=== PATIENT | female | born 1965 | race Caucasian/White ===

== ENCOUNTER 2020-02-08 04:08 | Emergency (ER) | payer MEDICAID, OTHER ==
[~2020-02-08] VITALS: Ht 165 cm; Wt 73.0 kg
[~2020-02-08 04:08] MED LIST: ALPR1T; ALPR1TAB21 PO; ALPR1TAB72; AMBIEN CR; BACL10TA; BPR150TCR; BSC10SU PR; BSP10T; BSP5T; CHL25T; CHOL10002; CHOL200025 PO; CYAN100053 IJ; CYANOCOBALAMIN; CYCL10TA9 PO; CYMBALTA; CYMBALTA 60 MG; DCS100C PO; DULO30CA; ELMIRON; EST.625T; FLDR.1T; FNT25TD TD; FNT50TD TD; FRSM40T; HYDR-229; HYOS0.1283 SL; ISOS30TA3 PO; KCL10CCR; LRZ1T; LVT.15T; LYRICA 75MG; MECL25TA56; MELATONIN 300MCG; MESA1.2T2 PO; METO50TA7; MNTL10T; MORP15TA PO; MULT-930 PO; NITR-65 PO; OLAN5TAB25 PO; OLN10T; OLN5T; OMEP40CA36; ONDA4TAB2 PO; OXC5T; OXC5T PO; OXYC10TA8; OXYC10TA8 PO; OXYC1TAB87; OXYC1TAB87 PO; PANT40TA2 PO; PEG250PW; PNT40TEC; POLY17PO23 GT; PREMPRO; PRM25T; PROM25SU10; PROM25SU43 RC; QTP25T; RAME8T; RANI150T11 PO; SUCR1ORA5 PO; TMSL.4C; TR5C15 TOP; TRAZ300T3 PO; TRZ100T; VALA500T4; XOPENEX; ZOLP12.5; ZOLP12.546 PO; [UNRECOGNIZED DRUG - CODE]; [UNRECOGNIZED DRUG - CODE] SQ; [UNRECOGNIZED DRUG - OTHER]; [UNRECOGNIZED DRUG - OTHER]
--- OUTSIDE RECORDS SUMMARY | 2020-02-08 04:17 | XMS REPORT | Encounter Summary ---
Author Author [facility] Organization [facility] Address Unknown Phone Unavailable Care Team Providers Care Gasoline Tester Name Role Phone PCP Unavailable Reason for Visit * Reason Comments Hip Pain Left, total replacement , revision 2010 Encounter Details Care Team Description Date Type Department Get Green MD [address] [facility] [address] [place] [address] Pain of left hip joint (Primary Dx) 07/15/2016 Initial consult [facility] [address] [facility] [address] [place], [place] [id number] Social History Date Tobacco Use Types Packs/Day Years Used Former Smoker Smokeless Tobacco: Never Used Drinks/Week oz/Week Comments Alcohol Use No Sex Assigned at Date Recorded Not on file Industry Job Start Date Occupation Not on file Not on file Not on file Travel End Travel History Travel Start No recent travel history available. documented as of this encounter Last Filed Vital Signs Reading Time Taken Comments Vital Sign 120/86 07/15/2016 1:19 PM CDT Blood Pressure 79 07/15/2016 1:19 PM CDT Pulse - - Temperature - - Respiratory Rate - - Oxygen Saturation - - Inhaled Oxygen Concentration 72.6 kg (160 lb) 07/15/2016 1:19 PM CDT Weight 165.1 cm (5' 5") 07/15/2016 1:19 PM CDT Height 26.63 07/15/2016 1:19 PM CDT Body Mass Index documented in this encounter Progress Notes * Get Green MD - 07/15/2016 1:20 PM CDT NAME: Barbara Morgan : 1965 VISIT DATE: 07/15/2016 Patient ID: Barbara Morgan is a 51 y.o. female. 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 She has c/o left hip pain. No recent trauma. Review of Systems Review of Systems - Negative except hpi History Past Medical History Diagnosis Date Osteoporosis Past Surgical History Procedure Laterality Date Other surgical history Esophagogastric Fundoplasty Az Fundoplication Other surgical history Hip Surgery Total hip replacement Left Revision total hip Left x2 2010 Family History Problem Relation Age of Onset ALS Father Family history of amyotrophic lateral sclerosis; Melanoma Father Family history of melanoma; Diabetes Father Family history of diabetes mellitus; Hypertension Other Family History; Hypertension; Diabetes Other Family History; Diabetes Mellitus; Social History Social History Marital status: Spouse name: N/A Number of children: N/A Years of education: N/A Occupational History Not on file. Social History Main Topics Smoking status: Former Smoker Smokeless tobacco: Never Used Alcohol use No Drug use: No Sexual activity: Not on file Other Topics Concern Not on file Social History Narrative Being Sedentary; Previous History Of Smoking; Uses Safety Equipment - Seatbelts; Alcohol Use; Description: None Current Meds Outpatient Prescriptions Marked as Taking for the 07/15/16 encounter (Initial co nsult) with Get Green MD Medication Sig Dispense Refill alendronate (FOSAMAX) 10 MG tablet TAKE 1 T BY MOUTH ONCE A DAY FOR 30 DAYS 1 ALPRAZolam (XANAX) 1 MG tablet TK 1 T PO Q 6 H PRN 0 LIALDA 1.2 gram EC tablet 5 OLANZapine zydis (ZYPREXA) 5 MG disintegrating tablet DISSOVLE 1 T UNDER THE TONGUE QD 11 oxyCODONE-acetaminophen (PERCOCET) 10-325 mg per tablet TK 1 T PO Q 6 H PRN 0 traZODone (DESYREL) 150 MG tablet TAKE 1 TABLET BY MOUTH NIGHTLY AT BEDTIME 0 zolpidem (AMBIEN) 10 mg tablet TK 1 T PO QD HS PRN 2 Allergies Metoclopramide hcl and Nsaids (non-steroidal anti-inflammatory drug) Radiology Interpretation No results found. Vitals Visit Vitals BP 120/86 Pulse 79 Ht 1.651 m (5' 5") Wt 72.6 kg (160 lb) BMI 26.63 kg/m2 Ortho Exam 51F, NAD, AAOx3 L hip: increased leg length. Healed incisions from prior surgeries. Discomfort with hip motion. Motor and sensory function grossly intact. Procedure Assessment: Encounter Diagnosis Name Primary? Pain of left hip joint Yes Plan: Orders Placed This Encounter XR Hip 2 views with Pelvis left Discussion/Summary Recommend pt follow up with her previous surgeon or another adult reconstruction specialist. Request for pain medication denied. F/u prn SEAT SANDER documented in this encounter Plan of Treatment Not on filedocumented as of this encounter Procedures Comments Procedure Name Priority Date/Time Associated Diag nosis XR HIP 2 VIEWS WITH Routine 07/15/2016 Pain of le ft hip joint PELVIS LEFT 1:36 PM CDT documented in this encounter Results * XR Hip 2 views with Pelvis left (07/15/2016 1:36 PM CDT) Specimen Narrative Performed At [facility] Reason for exam: left hip pain Findings: AP pelvis and 2 view left hip demonstrate left hip arthroplasty with revision components. No acute fi ndings Impression: s/p left hip revision arthr oplasty Performing Organization Address City/State/Zipcode Ph one Number [facility] documented in this encounter Visit Diagnoses Diagnosis Pain of left hip joint documented in this encounter
--- OUTSIDE RECORDS SUMMARY | 2020-02-08 04:17 | XMS REPORT | Clinical Summary ---
Author Author [facility] Organization [facility] Address Unknown Phone Unavailable Care Team Providers Care Save All Operator Name Role Phone PCP Unavailable Allergies Comments Active Allergy Reactions Severity Noted Date Adverse Reaction Metoclopramide Hcl Dyskinesia 07/15/2016 Pancreatic Problems Nsaids (Non-Steroidal Other (See 07/15/2016 Anti-Inflammatory Drug) Comments) Medications End Date Status Medication Sig Dispensed Refills Start Date Active alendronate (FOSAMAX) 10 TAKE 1 T BY 1 06/14 MG tablet MOUTH ONCE A 6 DAY FOR 30 DAYS Active ALPRAZolam (XANAX) 1 MG TK 1 T PO Q 6 0 tablet H PRN 6 Active LIALDA 1.2 gram EC tablet 5 6 Active OLANZapine zydis DISSOVLE 1 T 11 (ZYPREXA) 5 MG UNDER THE 6 disintegrating tablet TONGUE QD Active oxyCODONE-acetaminophen TK 1 T PO Q 6 0 (PERCOCET) 10-325 mg per H PRN 6 tablet Active traZODone (DESYREL) 150 TAKE 1 TABLET 0 MG tablet BY MOUTH 6 NIGHTLY AT BEDTIME Active zolpidem (AMBIEN) 10 mg TK 1 T PO QD 2 tablet HS PRN 6 Active Problems Problem Noted Date Pain of left hip joint 09/14/2016 Dysphagia 03/02/2013 Overview: ICD-10 conversion Arthropathy 03/02/2013 Overview: ICD-10 conversion Deficiency of other specified B group vitamins (CODE) 03/02/2013 Overview: IMO Update Family History Medical History Relation Name Comments ALS Father Family history of a myotrophic lateral sclerosis; Diabetes Father Family history of d iabetes mellitus; Melanoma Father Family history of m elanoma; Hypertension Other Family History; Hyp ertension; Diabetes Other Family History; Ellen betes Mellitus; Relation Name Status Comments Father Other Other Social History Date Tobacco Use Types Packs/Day Years Used Former Smoker Smokeless Tobacco: Never Used Drinks/Week oz/Week Comments Alcohol Use No Sex Assigned at Date Recorded Not on file Industry Job Start Date Occupation Not on file Not on file Not on file Travel End Travel History Travel Start No recent travel history available. Last Filed Vital Signs Reading Time Taken Comments Vital Sign 120/86 07/15/2016 1:19 PM CDT Blood Pressure 79 07/15/2016 1:19 PM CDT Pulse 36.7 C (98.1 F) 07/20/2013 10:40 AM COPYRIGHT CLERK Temperature - - Respiratory Rate - - Oxygen Saturation - - Inhaled Oxygen Concentration 72.6 kg (160 lb) 07/15/2016 1:19 PM CDT Weight 165.1 cm (5' 5") 07/15/2016 1:19 PM CDT Height 26.63 07/15/2016 1:19 PM CDT Body Mass Index Plan of Treatment Health Maintenance Due Date Last Done Comments Td # 1965 Zoster Vaccine# (1 of 2) 2013 Influenza Vaccine (Season 07/16/2020 Ended) Results Not on filefrom Last 3 Months Insurance Type Payer Benefit Subscriber ID Effective Phone Address Plan / Dates Group [place] 2016 [employer] -Present [id number] [place]) [place] [id number] Barbara Morgan Personal/F Self 1965 [id number] [place] [id number] Advance Directives For more information, please contact: [phone] Patient Oxygraph Operator Explanation Type Date Recorded Advance Directives and Living Will Power of Comb Winder
--- OUTSIDE RECORDS SUMMARY | 2020-02-08 04:17 | XMS REPORT | Encounter Summary ---
Author Author [facility] Organization [facility] Address Unknown Phone Unavailable Care Team Providers Care Promotions Intern Name Role Phone PCP Unavailable Encounter Details Care Team Description Date Type Department Jim Ruiz MD [address] [place] [address] [phone] 03/02/2013 Hist-Appointmen SLS SURG [facility] CL t Social History Date Tobacco Use Types Packs/Day Years Used Never Assessed Sex Assigned at Date Recorded Not on file Industry Job Start Date Occupation Not on file Not on file Not on file Travel End Travel History Travel Start No recent travel history available. documented as of this encounter Last Filed Vital Signs Reading Time Taken Comments Vital Sign 139/83 03/02/2013 12:21 PM CDT Blood Pressure 93 03/02/2013 12:21 PM CDT Pulse - - Temperature - - Respiratory Rate - - Oxygen Saturation - - Inhaled Oxygen Concentration 61.7 kg (136 lb) 03/02/2013 12:21 PM CDT Weight - - Height 22.63 12/13/2009 9:24 AM CDT Body Mass Index documented in this encounter Progress Notes * Jim Ruiz MD - 03/02/2013 11:45 AM CDT Reason For Visit Her reason for visit is "trouble swallowing". History of Present Illness 47-year-old woman with known to me from 2008 in which she complained of dysphagi a and nausea after fundoplication performed at an outside facility. On endoscopy at that time she was found to have narrowing at the GE junction and was taken f or revision of her fundoplication in June of that same year. She did well for a period of time but eventually had similar complaints with her revisional surg meche and as result she was taken back to the operating room in January of 2010 for co mplete takedown of her fundoplication. All of these surgeries were performed lap aroscopically. Over the past couple of months she states that she feels as if th ings have been getting stuck when she swallows and also complains of some pain w hen swallowing certain foods. She states that she has dysphagia and odynophagia with everything except for very thin liquids. She complains of occasional regurg itation but no heartburn. She states that she has lost approximately 30 pounds. Surgical History 1. History of Esophagogastric Fundoplasty Az Fundoplication 2. History of Knee Surgery Past Medical History 1. History of Dysphagia 787.20 Current Meds 1. Florinef 0.1 MG TABS; Therapy: (Recorded:13Dec2009) to 2. Phenergan SUPP; Therapy: (Recorded:13Dec2009) to 3. PredniSONE 1 MG Oral Tablet; Take 4 tablets daily. If you develop fever or Pn eumonia take an extra 4 tablets on 1 day only; Therapy: 17Nov2009 to (Evaluate:27Dec2009); Last Rx:17Nov2009 4. Premarin 0.625 MG Oral Tablet; Therapy: (Recorded:13Dec2009) to 5. Thorazine 100 MG TABS; Take one tablet four times a day for hicups; Therapy: (Recorded:13Dec2009) to 6. TraZODone HCl 100 MG Oral Tablet; TAKE 2 TABLETS DAILY; Therapy: (Recorded:) to 7. Vitamin D 2000 UNIT Oral Tablet; Therapy: (Recorded:13Dec2009) to 8. Xanax TABS; Therapy: (Recorded:13Dec2009) to 9. Zofran 4 MG Oral Tablet; Therapy: (Recorded:13Dec2009) to Allergies 1. Codeine Derivatives 2. Reglan TABS 3. NSAIDs Family History 1. Family history of Diabetes Mellitus V18.0 2. Family history of Hypertension V17.49 3. Family history of Prostate Cancer V16.42 Social History Alcohol Use Being Sedentary V69.0 Former Smoker Uses Safety Equipment - Seatbelts Review of Systems Eye, neck, cardiovascular, skin and psychiatric review of systems are normal exc ept as per HPI and unless noted below. Constitutional: Constitutional: chills, sudden exhaustion and recent weight loss. ENT: Throat symptoms include pain on swallowing and hoarseness. Teeth symptoms i nclude teeth are sensitive to heat/cold. Mouth symptoms include bad breath and d ry mouth. Respiratory: Respiratory Symptoms: shortness of breath during exertion. Gastrointestinal: anorexia and nausea. abdominal pain. Genitourinary: Smaller urine stream. Musculoskeletal: shoulder problems, upper back pain and arthralgias. Neurological: lightheadedness. Endocrine: Intolerance to cold. Hematologic/Lymphatic: tendency for easy bruising. Vitals Signs [Data Includes: Last 1 Day] 02Mar2013 12:21PM BMI Calculated: 22.66 BSA Calculated: 1.68 Weight: 136 lb Systolic: 139 Diastolic: 83 Heart Rate: 93 Physical Exam General Surgery Physical Exam General: Alert and oriented and in no apparent distress HEENT: Normocephalic, atraumatic Sclera: Anicteric Neck: Supple, no masses, no bruits, no lymphadenopathy Chest: Clear to auscultation bilaterally. No crackles or wheezes Cardiovascular: Regular rate and rhythm Abdomen: Soft, non-tender, non-distended, no masses, normoactive bowel sounds. N o hepatosplenomegaly Extremities: Non-tender, no edema Skin: Grossly normal Neurological: Cranial nerves are grossly intact. Mood and effect is normal Assessment 1. Pain On Swallowing 787.20 2. Difficulty Swallowing (Dysphagia) 787.20 Plan 47-year-old woman with odynophagia and dysphagia with mainly solids and soft bridgett ds. She has had no workup to date. Think he would be best to start with an esoph agram and upper GI and pending those results she may ultimately need an upper en doscopy. I would also be a little concerned about a supratentorial component to this given her past history and negative workup with dysphagia in the past. She was in agreement with this plan and will followup accordingly. Cc Dr. Rich Rose Referring Provider Dr. Rose. Signatures Electronically signed by : Lobo Ruiz MD; Mar 02 2013 4:20PM (Author) Disclaimer: Parts of this note were generated with voice recognition software, p lease excuse any typographical or grammatical errors. documented in this encounter Plan of Treatment Not on filedocumented as of this encounter Visit Diagnoses Not on filedocumented in this encounter
--- OUTSIDE RECORDS SUMMARY | 2020-02-08 04:17 | XMS REPORT | Encounter Summary ---
Author Author [facility] Organization [facility] Address Unknown Phone Unavailable Care Team Providers Care Refuge Manager Name Role Phone PCP Unavailable Encounter Details Care Team Description Date Type Department Jim Ruiz MD [address] [place] [address] [phone] 07/20/2013 Hist-Appointmen SLS SURG [facility]CLST HST CL t [...] Signs Reading Time Taken Comments Vital Sign 120/80 07/20/2013 10:40 AM SALES SUPPORT TECHNICIAN Blood Pressure 75 07/20/2013 10:40 AM SALES SUPPORT TECHNICIAN Pulse 36.7 C (98.1 F) 07/20/2013 10:40 AM SALES SUPPORT TECHNICIAN Temperature - - Respiratory Rate - - Oxygen Saturation - - Inhaled Oxygen Concentration 61.2 kg (135 lb) 07/20/2013 10:40 AM SALES SUPPORT TECHNICIAN Weight - - Height 22.47 12/13/2009 9:24 AM CDT Body Mass Index documented in this encounter Progress Notes * Jim Ruiz MD - 07/20/2013 10:30 AM SALES SUPPORT TECHNICIAN History of Present Illness 48-year-old woman well-known to me as she was recently seen in February of this yea r with complaints of dysphagia. In 2008 she had similar complaints with dysphag ia and nausea after fundoplication performed at an outside facility. At that ti ca she was found to have narrowing at her GE junction and was taken for revision of her fundoplication in June of that same year. She did well for a period of time but eventually had similar complaints with her revisional surgery as a r esult she was taken back to the operating room in January of 2010 for complete taked own of her fundoplication. These surgeries were all performed laparoscopically. In her late 2012 she had recurrence of her complaints of dysphagia and pain wi th swallowing certain types of food. She stated at that time that she had dysph agia as well as odynophagia with everything except for very thin liquids. She h ad occasional regurgitation but no heartburn and had lost approximately 30 pound s. At that time she weighed 136 pounds. It was recommended that she undergo up per endoscopy as well as esophagram and motility testing. Upper endoscopy was r ecently performed which was grossly unremarkable. She had a small amount of ret ained food and fluid in her stomach, there was no hiatal hernia and a small amou nt of reflux esophagitis. There was also mention of mild stenosis at her GE lisa ction which was dilated without incident. An esophagram and upper GI was also p erformed which demonstrated incomplete emptying of the esophagus compatible with motility dysfunction, and small hiatal hernia. She was referred for motility t esting but was unable to tolerate the procedure. In reviewing her medical recor ds it sounds as if she walked out on one of the physicians during the course of one of her office visits. Although not, and for Ms. Morgan I did have a similar experience with her while in the hospital. She now states that she is maintain ing her weight but has a constant vague abdominal discomfort which she describes as a tearing, ripping and sharp discomfort. She states that she is nauseated w ith her bowel movements. Standing up makes her pain worse and lying down makes her pain better. She states that she does not eat solid food in a more as this causes chest and epigastric discomfort. She feels as if food gets stuck althoug h she has no major problems with liquids. Surgical History 1. History of Esophagogastric Fundoplasty Az Fundoplication 2. History of Knee Surgery Active Problems 1. Arthritis (716.90) 2. Difficulty swallowing (787.20) 3. Pain on swallowing (787.20) 4. Vitamin B12 deficiency (266.2) Past Medical History 1. History of Dysphagia (787.20) Current Meds 1. Florinef 0.1 MG TABS (Fludrocortisone Acetate); Therapy: (Recorded:13Dec2009) to Recorded 2. Phenergan SUPP (Promethazine HCl); Therapy: (Recorded:13Dec2009) to Recorded 3. PredniSONE 1 MG Oral Tablet; Take 4 tablets daily. If you develop fever or Pn eumonia take an extra 4 tablets on 1 day only; Therapy: 17Nov2009 to (Evaluate:27Dec2009); Last Rx:17Nov2009 Ordered 4. Premarin 0.625 MG Oral Tablet; Therapy: (Recorded:13Dec2009) to Recorded 5. Thorazine 100 MG TABS; Take one tablet four times a day for hicups; Therapy: (Recorded:13Dec2009) to Recorded 6. TraZODone HCl - 100 MG Oral Tablet; TAKE 2 TABLETS DAILY; Therapy: (Recorded:13Dec2009) to Recorded 7. Vitamin D 2000 UNIT Oral Tablet; Therapy: (Recorded:13Dec2009) to Recorded 8. Xanax TABS (ALPRAZolam); Therapy: (Recorded:13Dec2009) to Recorded 9. Zofran 4 MG Oral Tablet (Ondansetron HCl); Therapy: (Recorded:13Dec2009) to Recorded Allergies 1. Codeine Derivatives 2. Reglan TABS 3. NSAIDs Family History 1. Family history of Diabetes Mellitus (V18.0) 2. Family history of amyotrophic lateral sclerosis (V17.2) 3. Family history of diabetes mellitus (V18.0) 4. Family history of melanoma (V16.8) 5. Family history of Hypertension (V17.49) 6. Family history of Prostate Cancer (V16.42) Social History Alcohol Use Being Sedentary (V69.0) Former Smoker Uses Safety Equipment - Seatbelts Vitals Signs [Data Includes: Last 24 Hours] Recorded by : Edna Sands at 20Jul2013 10:40AM Weight: 135 lb BMI Calculated: 22.47 BSA Calculated: 1.67 Systolic: 120 Diastolic: 80 Temperature: 98.1 F Heart Rate: 75 Physical Exam General Surgery Physical Exam General: [...] Cranial nerves are grossly intact. Mood and affect is normal Assessment 1. Family history of diabetes mellitus (V18.0) : Father 2. Family history of melanoma (V16.8) : Father 3. Family history of amyotrophic lateral sclerosis (V17.2) : Father 4. Difficulty swallowing (787.20) Plan 48-year-old with recurrent dysphagia. We had a long discussion that she needs motility testing and that nothing can be done for her unless she completes this. I also have some concern that some of this may be supratentorial, but I think the motility testing should help and dilatation. Certainly she could have a sma ll component of achalasia and we discussed this in the office. She stated that she will try to undergo the motility testing hearing [place]. Cc Dr. Dilip Guzman Signatures Electronically signed by : Lobo Ruiz MD; Jul 20 2013 5:52PM SALES SUPPORT TECHNICIAN (Author) Disclaimer: Parts of this note were generated with voice recognition software, p jonas excuse any typographical or grammatical errors. S SUPPORT TECHNICIAN documented in this encounter Plan of Treatment Not on filedocumented as of this encounter Visit Diagnoses Not on filedocumented in this encounter
--- OUTSIDE RECORDS SUMMARY | 2020-02-08 04:17 | XMS REPORT | Encounter Summary ---
Author Author [facility] Organization [facility] Address Unknown Phone Unavailable Care Team Providers Care Antique Furniture Restorer Name Role Phone PCP Unavailable Encounter Details Care Team Description Date Type Department Get Green MD [address] [place] [address] 05/29/2016 Documentation [facility] [address] [facility] [place], [place] [id number] Social History Date Tobacco Use Types Packs/Day Years Used Former Smoker Sex Assigned at Date Recorded Not on file Industry Job Start Date Occupation Not on file Not on file Not on file Travel End Travel History Travel Start No recent travel history available. documented as of this encounter Plan of Treatment Not on filedocumented as of this encounter Visit Diagnoses Not on filedocumented in this encounter
--- OUTSIDE RECORDS SUMMARY | 2020-02-08 04:17 | XMS REPORT | Encounter Summary ---
Author Author [facility] Organization [facility] Address Unknown Phone Unavailable Care Team Providers Care Construction Plumber Name Role Phone PCP Unavailable Encounter Details Care Team Description Date Type Department Jim Ruiz MD [address] [place] [address] [phone] Esophageal reflux 03/02/[address] [facility] 03/05/2013 [address] [place] [address] Social History Date Tobacco Use Types Packs/Day Years Used Never Assessed Sex Assigned at Date Recorded Not on file Industry Job Start Date Occupation Not on file Not on file Not on file Travel End Travel History Travel Start No recent travel history available. documented as of this encounter Medications at Time of Discharge Start Date End Date Medication Sig Dispensed Refills 04/19/2015 chlorproMAZINE Take one 0 (THORAZINE) 100 MG tablet tablet four times a day for hicups 04/19/2015 cholecalciferol, vitamin Take by 0 D3, 2,000 unit Tab mouth. 04/19/2015 fludrocortisone Take by 0 (FLORINEF) 0.1 mg tablet mouth. 04/19/2015 PHENERGAN 50 mg Insert into 0 suppository the rectum. 11/17/2009 04/19/2015 predniSONE (DELTASONE) 1 Take 4 30 0 MG tablet tablets daily. If you develop fever or Pneumonia take an extra 4 tablets on 1 day only. 04/19/2015 PREMARIN 0.625 mg tablet Take by 0 mouth. 04/19/2015 traZODone (DESYREL) 100 TAKE 2 0 MG tablet TABLETS DAILY 04/19/2015 XANAX 2 mg tablet Take by 0 mouth. 04/19/2015 ZOFRAN, HYDROCHLORIDE, Take by 0 4 mg tablet mouth. documented as of this encounter Plan of Treatment Not on filedocumented as of this encounter Procedures Comments Procedure Name Priority Date/Time Associated Diag nosis FL UGI WO KUB Routine 03/02/2013 3:01 PM CDT documented in this encounter Results * FL UGI wo KUB (03/02/2013 3:01 PM CDT) Specimen Narrative Performed At [facility] Patient: BARBARA MORGAN Phone #: BoostUp Rec#: [id number] Sex: F : 1965 Latricia#: [id number] Location: [facility] Check-in#: [id number] Procedure Requested: [id number] DX UGI WO KU B Reason For Exam: DYSPHAGIA Exam Ordered: 03/02/2013 140 5 Exam Date/Time: 03/02/2013 1521 Check-in Date/Time: 03/02/2013 1405 Attendin Jim RUIZ Requestin Jim RUIZ Referrin NO, REFERRING DR Primary Care: [id number] NANCY STAHL DO DX UGI WO KUB INDICATION: DYSPHAGIA TECHNIQUE: After administration of effervescent cr ystals and oral barium a combined full column and air-contrast exam of th e upper gastrointestinal tract was performed with multiple spot and ov erhead images. FINDINGS: A normal swallowing reflex is seen. Nor mal distensibility of the esophagus seen. No stricture or focal mucosal abnormality of the esophagus is seen. No hiatal hernia is seen. There is intermittent mild retrograde transit of barium contrast w ithin the distal thoracic esophagus. No distal stricture or mass is identified. No definite tertiary contractions. Peristalsis appe ars normal. The contour, the mucosal pattern, and d istensibility of the stomach is normal. The duodenal bulb and sweep are normal. No active ulcers are seen. The visualized portion of the pro ximal small bowel is normal. IMPRESSION: Mild intraesophageal reflux. No gastroe sophageal reflux identified during the study. Upper gastrointestina l series is otherwise normal. DISCLAIMER: Parts of this report were g enerated with voice recognition software, there may be typographical an d/or grammatical inaccuracies in professor criminal justice. Signed (Authenticated, Released) Date-T abdias: 03/02/2013 1551 Ambulette Driver- CHINEDU Yo, Staff Radiologist Dictated By- Kashif OWLF D.O. Radiologist Staff Physician- CHINEDU Dickey, Staff Radiologist Authenticated By- CHINEDU Yo, Staff Radiologist Procedure Note Interface, Rad Conversion - 11/12/2013 5:17 PM MATERIALS COORDINATOR REPORT Patient: BARBARA MORGAN Phone #: BoostUp Rec#: [id number] Sex: F : 1965 Latricia#: [id number] Location: [facility] Check-in#: [id number] Procedure Requested: [id number] DX UGI WO KUB Reason For Exam: DYSPHAGIA Exam Ordered: 03/02/2013 1405 Exam Date/Time: 03/02/2013 1521 Check-in Date/Time: 03/02/2013 1405 Attendin Jim RUIZ Requestin Jim RUIZ Referrin NO, REFERRING DR Primary Care: [id number] NANCY STAHL DO DX UGI WO KUB INDICATION: DYSPHAGIA TECHNIQUE: After administration of effervescent crystals and oral barium a combined full column and air-contrast exam of the upper gastrointestinal tract was performed with multiple spot and overhead images. FINDINGS: A normal swallowing reflex is seen. Normal distensibility of the esophagus seen. No stricture or focal mucosal abnormality of the esophagus is seen. No hiatal hernia is seen. There is intermittent mild retrograde transit of barium contrast within the distal thoracic esophagus. No distal stricture or mass is identified. No definite tertiary contractions. Peristalsis appears normal. The contour, the mucosal pattern, and distensibility of the stomach is normal. The duodenal bulb and sweep are normal. No active ulcers are seen. The visualized portion of the proximal small bowel is normal. IMPRESSION: Mild intraesophageal reflux. No gastroesophageal reflux identified during the study. Upper gastrointestinal series is otherwise normal. DISCLAIMER: Parts of this report were generated with voice recognition software, there may be typographical and/or grammatical inaccuracies in professor criminal justice. Signed (Authenticated, Released) Date-Time: 03/02/2013 9449 Ambulette Driver- CHINEDU BOYLE D.O., Staff Radiologist Dictated By- CHINEDU BOYLE D.O., Staff Radiologist Staff Physician- CHINEDU BOYLE D.O., Staff Radiologist Authenticated By- CHINEDU BOYLE D.O., Staff Radiologist Performing Organization Address City/State/[facility] Ph one Number INOCENCIO documented in this encounter Visit Diagnoses Diagnosis Esophageal reflux documented in this encounter
--- OUTSIDE RECORDS SUMMARY | 2020-02-08 04:17 | XMS REPORT | Encounter Summary ---
Author Author [facility] Organization [facility] Address Unknown Phone Unavailable Care Team Providers Care Packing And Final Assembly Supervisor Name Role Phone PCP Unavailable Encounter Details Care Team Description Date Type Department ProviderNeil MD [address] [place] [address] 03/04/2013 [facility] ion Encounter [address] [place], [place] [id number] Social History Date Tobacco Use Types Packs/Day Years Used Never Assessed Sex Assigned at Date Recorded Not on file Industry Job Start Date Occupation Not on file Not on file Not on file Travel End Travel History Travel Start No recent travel history available. documented as of this encounter Progress Notes * ProviderNeil MD - 03/04/2013 2:28 PM CDT Date: 04 Mar 2013 2:28 PM MILITARY PROFESSIONAL, Recorded By: Edna Sands Calling For: Edna Sands Caller: BARBARA MORGAN, Self (Home), Reason: Other patient called for UGI results. Dr. Ruiz reviewed results. Informed patient t hat results were ok and that she would now need to get evaluated by GI and get a n EGD. Verbalized understanding. STates has a GI doctor closer to her home she may want to try. Informed her to let us know when things get scheduled so we c an f/u on results. Verbaized understanding. Electronically signed by:Edna Sands R.N. Mar 04 2013 2:30PM MILITARY PROFESSIONAL documented in this encounter Plan of Treatment Not on filedocumented as of this encounter Visit Diagnoses Not on filedocumented in this encounter
--- OUTSIDE RECORDS SUMMARY | 2020-02-08 04:17 | XMS REPORT | Encounter Summary ---
Author Author [facility] Organization [facility] Address Unknown Phone Unavailable Care Team Providers Care Injection Molding Machine Setter Name Role Phone PCP Unavailable Encounter Details Care Team Description Date Type Department Jim Ruiz MD [address] [place], [place] [id number] 03/15/2013 [facility] [address] [place] [address] Social History Date Tobacco Use Types Packs/Day Years Used Never Assessed Sex Assigned at Date Recorded Not on file Industry Job Start Date Occupation Not on file Not on file Not on file Travel End Travel History Travel Start No recent travel history available. documented as of this encounter Miscellaneous Notes * Miscellaneous - Jim Ruiz MD - 03/15/2013 10:36 PM CDT Verified Results Collected/Examined: Mar 02, 2013 3:01PM DX UGI WO KUB Patient: BARBARA MORGAN Phone #: Med Rec#: [id number] Sex: F : 1965 Latricia#: [id number] Location: [facility] Check-in#: [id number] Procedure Requested: [id number] DX UGI WO KUB Reason For Exam: DYSPHAGIA Exam Ordered: 03/02/2013 1405 Exam Date/Time: 03/02/2013 1521 Check-in Date/Time: 03/02/2013 1405 Attendin Jim RUIZ Requestin Jim RUIZ Referrin NO, REFERRING DR Primary Care: [id number] NANCY STAHL DO DX UGI WO KUB [...] may be typographical and/or grammatical inaccuracies in ncr operator. Signed (Authenticated, Released) Date-Time: 03/02/2013 1551 College And Career Counselor- CHINEDU BOYLE D.O., Staff Radiologist Dictated By- CHINEDU BOYLE D.O., Staff Radiologist Staff Physician- CHINEDU BOYLE D.O., Staff Radiologist Authenticated By- CHINEDU BOYLE D.O., Staff Radiologist [id number]^JUAN MANUEL * Miscellaneous - Jim Ruiz MD - 03/15/2013 10:36 PM CDT Verified Results Collected/Examined: Mar 02, 2013 3:01PM DX UGI WO KUB Patient: BARBARA MORGAN Phone #: Doctor kinetic Rec#: [id number] Sex: F : 1965 Latricia#: [id number] Location: [facility] Check-in#: [id number] Procedure Requested: [id number] DX UGI WO KUB Reason For Exam: DYSPHAGIA Exam Ordered: 03/02/2013 1405 Exam Date/Time: 03/02/2013 1521 Check-in Date/Time: 03/02/2013 1405 Attendin Jim RUIZ Requestin Jim RUIZ Referrin NO, REFERRING DR Primary Care: [id number] STAHL NANCY Alvarez DO DX UGI WO KUB INDICATION: DYSPHAGIA [...] may be typographical and/or grammatical inaccuracies in ncr operator. Signed (Authenticated, Released) Date-Time: 03/02/2013 1551 College And Career Counselor- CHINEDU BOYLE D.O., Staff Radiologist Dictated By- CHINEDU BOYLE D.O., Staff Radiologist Staff Physician- CHINEDU BOYLE D.O., Staff Radiologist Authenticated By- CHINEDU BOYLE D.O., Staff Radiologist [id number] documented in this encounter Plan of Treatment Not on filedocumented as of this encounter Visit Diagnoses Not on filedocumented in this encounter
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
--- OUTSIDE RECORDS SUMMARY | 2020-02-08 04:17 | XMS REPORT | Encounter Summary ---
Author Author [facility] Organization [facility] Address Unknown Phone Unavailable Care Team Providers Care Process Stripper Name Role Phone PCP Unavailable Encounter Details Care Team Description [place] [address] [facility] [address] [place] [address] [phone] Dysphagia, unspecified 08/03/2013 [facility] Encounter [address] [place], [place] [id number] Social History Date Tobacco Use Types Packs/Day [...] tablet mouth. documented as of this encounter Miscellaneous Notes * Operative Note - Lino Martin MD - 11/11/2013 4:03 PM CROSSBAND LAYER REPORT Name: BARBARA MORGAN Date of : 1965 Attending Physician: LINO MARTIN ESOPHAGEAL FUNCTION TEST REPORT (ESOPHAGEAL MANOMETRY) REFERRING PHYSICIAN: Nara Ruiz MD PRIMARY CARE PHYSICIAN: Dilip Guzman MD INDICATIONS FOR PROCEDURE: Dysphagia, history of Az fundoplication with revision and subsequent takedown of the Az fundoplication revision, history of weight loss. MEDICATIONS: The patient was taking omeprazole, Zantac, Xanax, trazodone, Florinef, and Ambien at the time of the study. No medications administered during the procedure. DESCRIPTION OF PROCEDURE: Standard SandFortscalell system was utilized for the esophageal function test. A catheter was placed nasally and esophageal function parameters were obtained, as well as a wet swallows of liquid and viscous material. The lower esophageal sphincter was located between 41 and 45 cm from the nares. The lower esophageal sphincter pressure mean was 16.3 mmHg, which is in the normal range of between 10 and 45 mmHg. The lower esophageal sphincter pressure residual was 7.2 mmHg, which is normal at less than 8. Percent relaxation was 57%, which was diminished^ however, cooperation with the study was limited. The procedural nurse described multiple double swallows and throat clearing with limited cooperation during the study. A review of wet swallows showed that when single wet swallows were obtained, most measurements were peristaltic. An occasional simultaneous contraction was noted. With double swallows, frequent simultaneous contractions were noted. In essence, the study was limited due to artifact and limited cooperation. However, adequate peristalsis was seen to indicate that there is no evidence of achalasia. In addition, the lower esophageal sphincter resting pressure and appearance of relaxation did not fit with achalasia. Review of viscous swallows showed similar findings. The mean lower esophageal sphincter pressure on peristalsis was 54 mmHg, which is in the normal range. The patient tolerated the procedure reasonably well, except for her frequent throat clearing and poor cooperation, per the procedural nurse. Upper esophageal data was limited based on the nature of the study. IMPRESSION: Nonspecific esophageal motility disorder with occasional non-transmitted esophageal contractions (occasional aperistalsis). The normal lower esophageal sphincter pressure, the normal-range esophageal residual pressure, and the presence of mostly peristaltic waveforms in the absence of artifact suggest that achalasia is not a likely diagnosis. RECOMMENDATIONS: Clinical correlation is required in view of significant limitations of the study. Further evaluation and treatment of achalasia does not seem warranted at this time. Consider referral to a GI clinic if further symptoms persist in the future. Lino Martin MD Dictated By: cc: Lobo Ruiz MD SBAND LAYER documented in this encounter Plan of Treatment Not on filedocumented as of this encounter Visit Diagnoses Diagnosis Dysphagia, unspecified(787.20) Dysphagia, unspecified documented in this encounter
--- OUTSIDE RECORDS SUMMARY | 2020-02-08 04:17 | XMS REPORT | Encounter Summary ---
Author Author [facility] Organization [facility] Address Unknown Phone Unavailable Care Team Providers Care Applications Intern Name Role Phone PCP Unavailable Encounter Details Care Team Description Date Type Department Encounter for consultation 07/15/2016 Imaging [facility] Virtual Revenu e Appointment Location Social History Date Tobacco Use Types Packs/Day [...] Procedure Name Priority Date/Time Associated Diag nosis CT OUTSIDE IMAGES FOR Routine 07/15/2016 Encounte r for PACS LOWER EXTREMITY 1:12 PM CDT consultation documented in this encounter Results * CT Outside images for PACS Lower Extremity (07/15/2016 1:12 PM CDT) Specimen Performing Organization Address City/State/Zipcode Ph one Brian ROSECARLOS documented in this encounter Visit Diagnoses Diagnosis Encounter for consultation documented in this encounter
--- OUTSIDE RECORDS SUMMARY | 2020-02-08 04:17 | XMS REPORT | Encounter Summary ---
Author Author [facility] Organization [facility] Address Unknown Phone Unavailable Care Team Providers Care Medicine Technologist Name Role Phone PCP Unavailable Encounter Details Care Team Description Date Type Department ProviderNeil MD [address] [place] [address] 10/05/[address] [facility] Family Medicine ion Encounter [address] [place] [address] Social History Date Tobacco Use Types Packs/Day Years Used Never Assessed Sex Assigned at Date Recorded Not on file Industry Job Start Date Occupation Not on file Not on file Not on file Travel End Travel History Travel Start No recent travel history available. documented as of this encounter Progress Notes * ProviderNeil MD - 10/05/2013 11:58 AM PRODUCTION ROUSTABOUT PATIENT CALLED TO DISCUSS SOME DISCREPANCIES IN CHART. PER PATIENT, REQUEST REM ROBBIN FAMILY HISTORY OF PROSTATE CANCER AND OWN KNEE SURGERY. ADDED HIP REPLACEM ENT SURGERY SHE STATED THAT IS WHAT SHE HAD IN THE PAST. Electronically signed by:Jael Gore R.N. Oct 05 2013 12:02PM PRODUCTION ROUSTABOUT documented in this encounter Plan of Treatment Not on filedocumented as of this encounter Visit Diagnoses Not on filedocumented in this encounter
--- OUTSIDE RECORDS SUMMARY | 2020-02-08 04:17 | XMS REPORT | Encounter Summary ---
Author Author [facility] Organization [facility] Address Unknown Phone Unavailable Care Team Providers Care Wind Turbine Blade Repair Technician Name Role Phone PCP Unavailable Encounter Details Care Team Description Date Type Department ProviderNeil MD [address] [place] [address] 09/02/2013 Hist-Transcript [facility] Family Medicine ion Encounter [address] [place] [address] Social History Date Tobacco Use Types Packs/Day Years Used Never Assessed Sex Assigned at Date Recorded Not on file Industry Job Start Date Occupation Not on file Not on file Not on file Travel End Travel History Travel Start No recent travel history available. documented as of this encounter Progress Notes * ProviderNeil MD - 09/02/2013 10:43 AM UPHOLSTERY TRIMMER Date: 02 Sep 2013 10:43 AM UPHOLSTERY TRIMMER, Recorded By: Edna Hill Caller: TIFFANIEBARBARA, Self (Home), Patient called c/o pain and following up on tests. Dr. ruiz discussed her resul ts and is referring her to Dr. Stafford at for a 2nd opinion. Informed pt that w e have faxed over referral and Dr. Stafford's office will be contacting her. Ms. Lg ham also asked for pain meds and per Dr. Ruiz we referred her to her PCP for p ain management. Pt verbalized understanding and was going to follow up with her PCP as recommended. Electronically signed by:Edna Hill Sep 02 2013 10:47AM UPHOLSTERY TRIMMER Author documented in this encounter Plan of Treatment Not on filedocumented as of this encounter Visit Diagnoses Not on filedocumented in this encounter
--- OUTSIDE RECORDS SUMMARY | 2020-02-08 04:17 | XMS REPORT | Encounter Summary ---
Author Author [facility] Organization [facility] Address Unknown Phone Unavailable Care Team Providers Care Supervisor Finishing Department Name Role Phone PCP Unavailable Encounter Details Care Team Description Date Type Department Encounter for consultation 07/15/2016 Imaging [facility] Virtual Revenu e Appointment Location Social History [...] Procedure Name Priority Date/Time Associated Diag nosis NM OUTSIDE IMAGES FOR Routine 07/15/2016 Encounte r for PACS 1:13 PM CDT consultation documented in this encounter Results * NM Outside images for PACS (07/15/2016 1:13 PM CDT) Specimen Performing Organization Address City/State/Zipcode Ph one Number ROSECARLOS documented in this encounter Visit Diagnoses Diagnosis Encounter for consultation documented in this encounter
--- OUTSIDE RECORDS SUMMARY | 2020-02-08 04:18 | XMS REPORT | Encounter Summary ---
Author Author [facility] Organization [facility] Address Unknown Phone Unavailable Care Team Providers Care Supervisor Instrument Maintenance Name Role Phone PCP Unavailable Encounter Details Care Team Description Date Type Department Jim Ruiz MD [address] [place], [place] [id number] 12/13/2009 [facility] [address] [facility] [address] [place] [address] Social History Date Tobacco Use Types Packs/Day [...] Name Priority Date/Time Associated Diag nosis NM GASTRIC EMPTYING STUDY Routine 12/13/2009 2:30 PM CDT documented in this encounter Results * NM Gastric Emptying study (12/13/2009 2:30 PM CDT) Specimen Narrative Performed At [facility] Patient: BARBARA MORGAN Phone #: [facility] Rec#: [id number] Sex: F : 1965 Latricia#: [id number] Location: [facility] Check-in#: [id number] Procedure Requested: [id number] NM GASTRIC E MPTYING STUDY Reason For Exam: REFLUX Exam Ordered: 12/13/2009 143 0 Exam Date/Time: 12/13/2009 1600 Check-in Date/Time: 12/13/2009 1414 Attendin Jim RUIZ Requestin Jim RUIZ Referring: , Primary Care: , These images and this report have been reviewed and edited by the Staff Radiologist. NM GASTRIC EMPTYING STUDY Reason for exam: REFLUX Technique: The patient ingested cooked eggs mixed with 1 mCi of Tc-99 M tagged sulfur colloid. Multiple static images were then obtained over the next 90 minutes. A time/activity curve was f ormulated. Findings: Study demonstrates delayed emptying of the isotope and no evidence of gastroesophageal reflux. The half-time clearance was calculated to be 138 minutes. Impression: Delayed gastric emptying of solid meal. Signed (Authenticated, Released) Date-T abdias: 12/13/2009 1525 Chiropractic Care- CECY Wilder, Staff Radiologist Dictated By- CECY MONTES M.D., Staff Radiologist Staff Physician- CECY Hernandez, Staff Radiologist Authenticated By- CECY Wilder, Staff Radiologist Procedure Note Interface, Rad Conversion - 11/14/2013 12:49 AM PVC MONITOR REPORT Patient: BARBARA MORGAN Phone #: [facility] Rec#: [id number] Sex: F : 1965 Latricia#: [id number] Location: [facility] Check-in#: [id number] Procedure Requested: [id number] NM GASTRIC EMPTYING STUDY Reason For Exam: REFLUX Exam Ordered: 12/13/2009 1430 Exam Date/Time: 12/13/2009 1600 Check-in Date/Time: 12/13/2009 1414 AttendinJim VINCENT RequestinJim RASCON Referring: , Primary Care: , These images and this report have been reviewed and edited by the Staff Radiologist. NM GASTRIC EMPTYING STUDY Reason for exam: REFLUX Technique: The patient ingested cooked eggs mixed with 1 mCi of Tc-99 M tagged sulfur colloid. Multiple static images were then obtained over the next 90 minutes. A time/activity curve was fo rmulated. Findings: Study demonstrates delayed emptying of the isotope and no evidence of gastroesophageal reflux. The half-time clearance was calculated to be 138 minutes. Impression: Delayed gastric emptying of solid meal. Signed (Authenticated, Released) Date-Time: 12/13/2009 1525 Chiropractic Care- CECY MONTES M.D., Staff Radiologist Dictated By- CECY MONTES M.D., Staff Radiologist Staff Physician- CECY MONTES M.D., Staff Radiologist Authenticated By- CECY MONTES M.D., Staff Radiologist Performing Organization Address City/State/Zipcode Ph one Number INOCENCIO documented in this encounter Visit Diagnoses Not on filedocumented in this encounter
--- OUTSIDE RECORDS SUMMARY | 2020-02-08 04:18 | XMS REPORT | Encounter Summary ---
Author Author [facility] Organization [facility] Address Unknown Phone Unavailable Care Team Providers Care Band Builder Name Role Phone PCP Unavailable Encounter Details Care Team Description Date Type Department Jim Ruiz MD [address] [place], [place] [id number] Nausea alone 01/15/2010 [facility] - Encounter [address] 01/16/2010 [place] [address] Social History Date Tobacco Use Types Packs/Day [...] encounter Miscellaneous Notes * Operative Note - Lobo Ruiz MD - 11/13/2013 5:35 AM BLOCK SORTER REPORT Name: BARBARA MORGAN MRN/Unit #: [id number] Attending Physician: Jim RUIZ Date of : 1965 DATE OF PROCEDURE: 01/15/2010 PREOPERATIVE DIAGNOSIS: Nausea. POSTOPERATIVE DIAGNOSIS: Nausea. PROCEDURE: Laparoscopic takedown of Az fundoplication and intraoperative upper endoscopy. SURGEON: Lobo Ruiz MD NUCLEAR DESIGN ENGINEER: Jerson Webb MD ANESTHESIA: General endotracheal anesthesia. ESTIMATED BLOOD LOSS: Minimal. SPECIMEN: None. DESCRIPTION OF PROCEDURE: Patient was taken to the operating room, placed supine. General anesthesia was initiated. Aponte catheter was placed and she was prepped and draped in the usual sterile manner. Half percent Marcaine was infiltrated at all incisions. The abdominal cavity was entered by way of a left upper quadrant Veress needle. After normal saline drop test, the abdomen was insufflated with CO2. A camera was placed superior and to the left of the umbilicus and a camera was revealing the abdominal contents. The 5-mm ports were placed across the subcostal region. A liver retractor was placed through the right lateral port and used to elevate the left lobe of the liver. She had a significant amount of scarring underneath the liver to the anterior surface of the stomach. This took us some time to take down these adhesions. This was done sharply with scissors as well as using the harmonic scalpel. We were able to skeletonize the crura and skeletonize the esophagus within the esophageal hiatus. Retroesophageal window was established. The fundoplication was identified. This was above the GE junction and appeared to be intact. There was no evidence of slip or other irregularity. Using careful dissection, we were able to isolate the sutures, divide the sutures, and separate the fundoplication and taken down the fundoplication. The wrap was loosened posteriorly and freed from the posterior scarring and the fundus was brought back to its normal anatomic position. Hemostasis was insured. An upper endoscopy was performed to insure that there was no harm to the esophagus or to the stomach. There was no evidence of bubbling or evidence of a leak or injury. Satisfied hemostasis was insure, the trocars were removed and the skin incisions were closed with 4-0 Monocryl subcuticular stitches. Steri-Strips were applied. All sponge, needle, and instrument counts were reported correct. She tolerated the procedure well without complication. I was present and scrubbed throughout the procedure. Jim. Mendez Ruiz MD Dictated By: cc: MD Rich Kay DO K SORTER documented in this encounter Plan of Treatment Not on filedocumented as of this encounter Procedures Comments Procedure Name Priority Date/Time Associated Diag nosis PHOSPHORUS Routine 01/16/2010 5:15 AM CDT MAGNESIUM Routine 01/16/2010 5:15 AM CDT BASIC METABOLIC PANEL Routine 01/16/2010 5:15 AM CDT documented in this encounter Results * Magnesium (01/16/2010 5:15 AM CDT) Magnesium 1.4 1.4 - 2.0 MEQ/L SUNQUEST Specimen Blood Performing Organization Address City/State/[facility] Ph one Number [facility]RL [address] [place], [place] [address] SUNQUEST * Basic Metabolic Panel (01/16/2010 5:15 AM CDT) Sodium 139 134 - 144 MEQ/L SUNQUEST Potassium 3.7 3.5 - 5.1 MEQ/L SUNQUEST Chloride 105 101 - 111 MEQ/L SUNQUEST Carbon Dioxide 25 23 - 32 MEQ/L SUNQUEST Anion Gap 9 3 - 15 SUNQUEST Creatinine 0.7 0.4 - 1.1 MG/DL SUNQUEST Blood Urea 9 8 - 26 MG/DL SUNQUEST Nitrogen Glucose 81 65 - 100 MG/DL SUNQUEST Calcium 8.8 8.8 - 10.5 MG/DL SUNQUEST eGFR Female AA 108 SUNQUEST Comment: Chronic Kidney Disease less than 60 mL/min/1.73 sq.m Kidney failure less than 15 mL/min/1.73 sq.m eGFR Female 90 SUNQUEST Non-AA Comment: Chronic Kidney Disease less than 60 mL/min/1.73 sq.m Kidney failure less than 15 mL/min/1.73 sq.m Specimen Blood Performing Organization Address [facility] Ph one Number SLRL [address] [place] [phone] SUNQUEST * Phosphorus (01/16/2010 5:15 AM CDT) Phosphorus 2.3 (L) 2.5 - 4.5 MG/DL SUNQUEST Specimen Blood Performing Organization Address [facility] Ph one Number SLRL [address] [place] [phone] SUNQUEST documented in this encounter Visit Diagnoses Diagnosis Nausea alone documented in this encounter
--- OUTSIDE RECORDS SUMMARY | 2020-02-08 04:18 | XMS REPORT | Encounter Summary ---
Author Author [facility] Organization [facility] Address Unknown Phone Unavailable Care Team Providers Care Husker Operator Name Role Phone PCP Unavailable Encounter Details Care Team Description Date Type Department Jim Ruiz MD [address] [place] [address] [phone] [facility] Social History Date Tobacco Use Types Packs/Day [...] as of this encounter Miscellaneous Notes * Clinic Note - Lobo Ruiz MD - 11/13/2013 5:22 AM ENTRY MANAGER REPORT Name: BARBARA MORGAN MRN/Unit #: [id number] Chart #: Date of : 1965 DATE OF SERVICE: 02/08/2010 She feels remarkably improved since takedown of her fundoplication. She denies any dysphagia or ironically reflux symptomatology. She is not on any medications and has no heartburn or regurgitation type symptoms. She overall feels much improved. She is eating better and denies any nausea and states that she is actually gaining weight. Her incisions look well healed. She will follow up with me as needed. Lobo Ruiz MD Dictated by: cc: MD Rich Kay DO Y MANAGER documented in this encounter Plan of Treatment Not on filedocumented as of this encounter Visit Diagnoses Not on filedocumented in this encounter
--- OUTSIDE RECORDS SUMMARY | 2020-02-08 04:18 | XMS REPORT | Encounter Summary ---
Author Author [facility] Organization [facility] Address Unknown Phone Unavailable Care Team Providers Care Mat Sewer Name Role Phone PCP Unavailable Encounter Details Care Team Description Date Type Department Jim Ruiz MD [address] [place] [address] [phone] 12/05/2009 [facility] [address] [place] [address] Social History Date Tobacco Use Types Packs/Day [...]
--- OUTSIDE RECORDS SUMMARY | 2020-02-08 04:18 | XMS REPORT | Encounter Summary ---
Author Author [facility] Organization [facility] Address Unknown Phone Unavailable Care Team Providers Care Satellite Dish Installer Name Role Phone PCP Unavailable Encounter Details Care Team Description Date Type Department Odalys Jama MD No Known Information [facility] [address] [place], [place] [id number] Social History Date Tobacco Use Types Packs/Day [...] Procedure Name Priority Date/Time Associated Diag nosis RENIN, PLASMA Routine 12/13/2009 11:15 AM CDT CORTISOL Routine 12/13/2009 11:15 AM CDT CORTISOL Routine 12/13/2009 10:45 AM CDT [facility] Routine 12/13/2009 8:22 AM CDT TOTAL THYROXINE Routine 12/13/2009 8:22 AM CDT THYROID STIMULATING Routine 12/13/2009 HORMONE 8:22 AM CDT T4 FREE Routine 12/13/2009 8:22 AM CDT CORTISOL Routine 12/13/2009 8:22 AM CDT BASIC METABOLIC PANEL Routine 12/13/2009 8:22 AM CDT ADRENOCORTICOTROPIC Routine 12/13/2009 HORMONE 8:22 AM CDT documented in this encounter Results * Cortisol (12/13/2009 11:15 AM CDT) Only the most recent of 3 results within the time period is included. Cortisol 38.6 UG/DL SUNQUEST Comment: Reference ranges: AM 6.7 - 22.6 ug/dl PM 0.0 - 10.0 ug/dl Specimen Blood Performing Organization Address City/State/[facility] Ph one Number SLRL [address] [place], [place] [address] SUNQUEST * Renin, Plasma (12/13/2009 11:15 AM CDT) Renin Plasma <0.6 SUNQUEST Comment: This test was developed and its performance characteristics determined by [facility]. It has not been cleared or approved by the [place] Food and Drug Administration. Renin Reference Upright (Peripheral Vein) SUNQUEST Range Comment: Upright (Peripheral Vein) NA - Depleted Range : 2.9-10.8 Mean: 5.9 NA - Replete Range : <=0.6-3.0 Mean: 1.0 Specimen Blood Performing Organization Address [facility] one Number SLRL [address] [place] [phone] SUNQUEST * Thyroid Stimulating Hormone (12/13/2009 8:22 AM CDT) Thyroid 1.39 0.45 - 4.50 UIU/ML SUNQUEST Stimulating Hormone Specimen Blood Performing Organization [facility] one Number SLRL [address] [place] [phone] SUNQUEST * Total Thyroxine (12/13/2009 8:22 AM CDT) Total Thyroxine 9.9 4.5 - 11.0 UG/DL SUNQUEST Specimen Blood Performing Organization [facility] one Number SLRL [address] [place] [phone] SUNQUEST * T4 Free (12/13/2009 8:22 AM CDT) T4 Free 1.2 0.6 - 1.6 NG/DL SUNQUEST Specimen Blood Performing Organization [facility] one Number SLRL [address] [place] [phone] SUNQUEST * Basic Metabolic Panel (12/13/2009 8:22 AM CDT) Sodium 136 134 - 144 MEQ/L SUNQUEST Potassium 4.4 3.5 - 5.1 MEQ/L SUNQUEST Chloride 105 101 - 111 MEQ/L SUNQUEST Carbon Dioxide 24 23 - 32 MEQ/L SUNQUEST Anion Gap 7 3 - 15 SUNQUEST Creatinine 0.9 0.4 - 1.1 MG/DL SUNQUEST Blood Urea 15 8 - 26 MG/DL SUNQUEST Nitrogen Glucose 94 65 - 100 MG/DL SUNQUEST Calcium 9.6 8.8 - 10.5 MG/DL SUNQUEST eGFR Female AA 81 SUNQUEST Comment: Chronic Kidney Disease less than 60 mL/min/1.73 sq.m Kidney failure less than 15 mL/min/1.73 sq.m eGFR Female 67 SUNQUEST Non-AA Comment: Chronic Kidney Disease less than 60 mL/min/1.73 sq.m Kidney failure less than 15 mL/min/1.73 sq.m Specimen Blood Performing Organization Address [facility] one Number SLRL [address] [place], [place] [address] SUNQUEST * Adrenocorticotropic Hormone (12/13/2009 8:22 AM CDT) Adrenocorticotr 53 10 - 60 PG/ML SUNQUEST opic Hormone Specimen Blood Performing Organization Address [facility] one Number SLRL [address] [place], [place] [address] SUNQUEST * Misc Laboratory Testing (12/13/2009 8:22 AM CDT) Ref Lab Test Name: CORTISOL BINDING SUNQUEST Miscellaneous TASIA Comment: Test Name: CORTISOL BINDING GLOBULIN Specimen Source: Serum Result: 32 mg/L Reference Range: Adult: 19-45 mg/L Test performed at: [facility] Specimen Blood Performing Organization Address [facility] one Number SLRL [address] [place], [place] [address] SUNQUEST documented in this encounter Visit Diagnoses Not on filedocumented in this encounter
--- OUTSIDE RECORDS SUMMARY | 2020-02-08 04:18 | XMS REPORT | Encounter Summary ---
Author Author [facility] Organization [facility] Address Unknown Phone Unavailable Care Team Providers Care Deputy Chief Sheriff Name Role Phone PCP Unavailable Encounter Details Care Team Description Date Type Department Odalys Jama MD No Known Information 12/13/2009 [facility]Appoint[facility] Social History Date Tobacco Use Types Packs/Day Years Used Never Assessed Sex Assigned at Date Recorded Not on file Industry Job Start Date Occupation Not on file Not on file Not on file Travel End Travel History Travel Start No recent travel history available. documented as of this encounter Last Filed Vital Signs Reading Time Taken Comments Vital Sign 120/86 12/13/2009 9:24 AM CDT Blood Pressure 72 12/13/2009 9:24 AM CDT Pulse - - Temperature - - Respiratory Rate - - Oxygen Saturation - - Inhaled Oxygen Concentration 55.3 kg (122 lb) 12/13/2009 9:24 AM CDT Weight 165.1 cm (5' 5") 12/13/2009 9:24 AM CDT Height 20.3 12/13/2009 9:24 AM CDT Body Mass Index documented in this encounter Plan of Treatment Not on filedocumented as of this encounter Visit Diagnoses Not on filedocumented in this encounter
--- OUTSIDE RECORDS SUMMARY | 2020-02-08 04:18 | XMS REPORT | Encounter Summary ---
Author Author [facility] Organization [facility] Address Unknown Phone Unavailable Care Team Providers Care Merchandiser Retail Representative Name Role Phone PCP Unavailable Encounter Details Care Team Description Date Type Department 12/13/2009 [facility]Appointmen [facility] Social [...]
--- OUTSIDE RECORDS SUMMARY | 2020-02-08 04:18 | XMS REPORT | Encounter Summary ---
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 Role Phone PCP Unavailable Encounter Details Care Team Description Date Type Department Rene Gaffney MD [address] [place], [place] [id number] Aaron Cottrell MD [address], [place] [id number] Nausea with vomiting [facility] [address] [place], [place] [id number] Social History Date Tobacco Use Types Packs/Day [...] Procedure Name Priority Date/Time Associated Diag nosis APTT Routine 01/10/2010 8:05 PM CDT PROTHROMBIN TIME/INR Routine 01/10/2010 8:05 PM CDT LIPASE Routine 01/10/2010 8:05 PM CDT COMPREHENSIVE METABOLIC Routine 01/10/2010 PANEL 8:05 PM CDT CBC AND DIFF (MANUAL DIFF Routine 01/10/2010 IF NECESSARY) 8:05 PM CDT URINE NITRITE Routine 01/10/2010 7:20 PM CDT URINALYSIS (INCLUDES Routine 01/10/2010 MICROSCOPIC REVIEW, IF 7:20 PM CDT INDICATED) documented in this encounter Results * APTT (01/10/2010 8:05 PM CDT) APTT 24 22 - 34 SEC [facility] Specimen Blood Performing Organization Address [facility] Ph one Number [id number] [place] [phone] SUN[place] * Prothrombin Time/INR (01/10/2010 8:05 PM CDT) Protime 13.7 11.9 - 14.3 SEC [facility] INR 1.1 0.7 - 1.1 [facility] Specimen Blood Performing Organization Address [facility] Ph one Number [id number] [place] [phone] [place] * CBC and Diff (manual diff if necessary) (01/10/2010 8:05 PM CDT) WBC 9.66 4.00 - 11.00 TH/UL [facility] RBC 5.17 (H) 4.00 - 5.00 MIL/UL [facility] Hemoglobin 15.4 (H) 12.0 - 15.0 G/DL [facility] Hematocrit 44 36 - 45 % [facility] MCV 85 80 - 99 FL [facility] MCH 30 27 - 34 PG [facility] MCHC 35 32 - 36 % [facility] RDW 15.1 (H) 9.0 - 14.5 % [facility] Platelet Count 296 140 - 400 TH/UL [facility] MPV 9.3 (L) 9.4 - 12.3 FL [place]QUEST % Neutrophils 42 (L) 45 - 78 % SUNQUEST %Lymphocytes 42 15 - 47 % SUNQUEST %Monocytes 9 0 - 12 % SUN[facility] %Eosinophils 5 0 - 7 % [facility] # Basophils 0.19 (H) 0.00 - 0.10 TH/UL [place] # Eosinophils 0.43 (H) 0.00 - 0.40 TH/UL [place] %Basophils 2 0 - 2 % SUN[facility] # Monocytes 0.90 0.20 - 0.90 TH/UL [facility] # Lymphocytes 4.05 (H) 1.00 - 3.30 TH/UL [facility] # Granulocytes 4.09 1.70 - 6.80 TH/UL [facility]QUEST Specimen Blood Performing Organization Address City/State/Zipcode Ph one Number [id number] [place], [place] [phone] SUN[place] * Comprehensive Metabolic Panel (01/10/2010 8:05 PM CDT) Albumin 4.0 3.5 - 5.0 G/DL [facility] Aspartate 16 15 - 41 IU/L [facility] Aminotransferas e Bilirubin Total 1.0 0.3 - 1.4 MG/DL [facility] Protein Total 6.5 6.0 - 8.0 G/DL [place] Serum Calcium 9.2 8.8 - 10.5 MG/DL [place] Creatinine 0.8 0.4 - 1.1 MG/DL [facility] Glucose 81 65 - 100 MG/DL [facility] Alkaline 40 (L) 42 - 128 IU/L [facility] Phosphatase Sodium 139 134 - 144 MEQ/L [place] Potassium 3.5 3.5 - 5.1 MEQ/L [place] Chloride 105 101 - 111 MEQ/L [facility] Carbon Dioxide 23 23 - 32 MEQ/L [facility] Blood Urea 9 8 - 26 MG/DL [facility] Nitrogen Anion Gap 11 3 - 15 [facility] Alanine 13 (L) 14 - 63 IU/L [facility] Aminotransferas e eGFR Female AA 93 [facility] Comment: Chronic Kidney Disease less than 60 mL/min/1.73 sq.m Kidney failure less than 15 mL/min/1.73 sq.m eGFR Female 77 SUNQUEST Non-AA Comment: Chronic Kidney Disease less than 60 mL/min/1.73 sq.m Kidney failure less than 15 mL/min/1.73 sq.m Specimen Blood Performing Organization Address [facility] Ph one Number [id number] [place], [place] [address] [place] * Lipase (01/10/2010 8:05 PM CDT) Lipase 14 (L) 18 - 51 U/L SUNQUEST Specimen Blood Performing Organization Address [facility] Ph one Number [facility] [id number] [place] [phone] SUNQUEST * Urinalysis (01/10/2010 7:20 PM CDT) Appearance, Yellow [facility] Urine Specific <=1.005 1.001 - 1.030 [facility] [place], UA PH Urine 7.5 5.0 - 8.0 SUN[facility] Hemoglobin Negative Negative [facility] Urine Ketones Urine Negative Negative [facility] Glucose Urine Negative Negative [facility] Protein Urine Negative Negative [facility] Qual Leukocyte Negative Negative [facility] Esterase Urobilinogen Negative Negative [facility] Urine Bilirubin Urine Negative Negative [facility] Specimen Urine Performing Organization Address [facility] one Number [id number] [place], [place] [address] SUNQUEST * Urine Nitrite (01/10/2010 7:20 PM CDT) Nitrite Urine Negative Negative [facility] Specimen Urine Performing Organization Address [facility] one Number [facility] [address] [place], [place] [address] SUNQUEST documented in this encounter Visit Diagnoses Diagnosis Nausea with vomiting documented in this encounter
--- OUTSIDE RECORDS SUMMARY | 2020-02-08 04:18 | XMS REPORT | Encounter Summary ---
Author Author [facility] Organization [facility] Address Unknown Phone Unavailable Care Team Providers Care Rehabilitation Coordinator Name Role Phone PCP Unavailable Encounter Details Care Team Description Date Type Department Odalys Jama MD No Known Information 11/17/2009 Hist-Other [facility] Social History Date Tobacco Use Types Packs/Day [...]
--- OUTSIDE RECORDS SUMMARY | 2020-02-08 04:18 | XMS REPORT | Encounter Summary ---
Author Author [facility] Organization [facility] Address Unknown Phone Unavailable Care Team Providers Care Crater And Packer Name Role Phone PCP Unavailable Encounter Details Care Team Description Date Type Department Felicia Rivera MD [email or web address] [place], [place] [id number] Nausea with vomiting 10/30/2009 [facility] - Encounter [address] 11/04/2009 [place] [address] Social History Date Tobacco Use Types Packs/Day Years Used Never Assessed Sex Assigned at Date Recorded Not on file Industry Job Start Date Occupation Not on file Not on file Not on file Travel End Travel History Travel Start No recent travel history available. documented as of this encounter Discharge Summaries * Amaris Crawford MD - 11/13/2013 6:13 AM FIELD PROFESSIONAL REPORT Name: BARBARA MORGAN MRN/Unit #: [id number] Attending Physician: FELICIA RIVERA Date of : 1965 DATE OF ADMISSION: 10/30/2009 DATE OF DISCHARGE: 11/04/2009 Please refer to the history and physical. LABORATORY TSH 0.46. CBC - white count 9.39, hemoglobin 15, platelet count 317,000. Magnesium 1.5. Chemistry profile CO2 22, glucose 161 while receiving IV dextrose. GFR 90. Subsequent glucose 124. Chest x-ray was clear without consolidation. Urine culture no growth. Urinalysis small ketones. CT scan of the abdomen and pelvis obtained because of abdominal pain and fever showed a small lesion in the right lobe of liver likely a small hemangioma seen only on the early phase of contrast enhancement. LH is 22. Repeat CBC white count 9.4, hemoglobin 13, platelet count 245,000. Estradiol less than 20. FSH 57. AST, ALT and alkaline phosphatase all normal. Protein low at 5.2. Albumin 3.1. FT4 1.5. Cortisol 7.6, stimulation cortisol increased to 29 and then 35. TSH reached 6.1. Subsequent TSH decreased at 2.23. T7 index 4.5, normal range 1.44 to 5.28. Potassium improved to 3.7, magnesium normal at 1.5. HOSPITAL COURSE The patient was admitted with intractable nausea and vomiting. She was treated with IV fluids and received antiemetics. Because of fever and upper abdominal discomfort she underwent a CT scan which showed no acute inflammatory process and no masses. She was seen in consultation by Dr. Gonzalez who evaluated her for adrenal insufficiency with a cosyntropin stimulation test which was normal. The patient was started on a proton pump inhibitor because of some dyspeptic symptoms with improvement. She has some chronic abdominal pain, which actually the day of discharge when she was experiencing pain, was treated with alprazolam with improvement. The patient is being discharged home on the following regimen: 1. Compazine 10 mg every 6 hours p.r.n. 2. Lortab elixir 15 mL every 6 hours p.r.n. pain. 3. Thorazine 25 mg q.i.d. p.r.n. 4. Trazodone 100 mg nightly. 5. Vitamin D 2000 units daily. 6. Alprazolam 1 mg t.i.d. p.r.n. 7. Zofran 4 mg every 8 hours p.r.n. 8. Protonix 40 mg daily. I discussed with her possible underlying depression because of her chronic pain and at this time she does not want to institute antidepressant, other than the trazodone that she is taking primarily for sleep. I discussed concerns about her chronic narcotic use and antianxiety medication. She will followup with Dr. Stahl in 1 to 2 weeks. She will see Dr. Gonzalez in about 6 weeks to have some repeat testing off of estrogen, which can interact with some of the cortisol binding globulin and thyroid binding globulin. She will also follow up with the health education assistant regarding her abdominal pain and intermittent episodes of nausea. FINAL DIAGNOSES 1. Intractable nausea and vomiting. 2. Fever - resolved. Amaris Crawford MD Dictated By: cc: DO Odalys Gastelum MD B. Mendez Ruiz MD D PROFESSIONAL documented in this encounter Medications at Time of Discharge Start Date End Date Medication Sig Dispensed Refills 04/19/2015 chlorproMAZINE Take one 0 (THORAZINE) 100 MG tablet tablet four times a day for hicups 04/19/2015 cholecalciferol, vitamin Take by 0 D3, 2,000 unit Tab mouth. 04/19/2015 fludrocortisone Take by 0 (FLORINEF) 0.1 mg tablet mouth. 04/19/2015 PHENERGAN 50 mg Insert into 0 suppository the rectum. 04/19/2015 PREMARIN 0.625 mg tablet Take by 0 mouth. 04/19/2015 traZODone (DESYREL) 100 TAKE 2 0 MG tablet TABLETS DAILY 04/19/2015 XANAX 2 mg tablet Take by 0 mouth. 04/19/2015 ZOFRAN, HYDROCHLORIDE, Take by 0 4 mg tablet mouth. documented as of this encounter H&P Notes * Felicia Rivera MD - 11/13/2013 6:16 AM FIELD PROFESSIONAL REPORT Name: BARBARA MORGAN MRN/Unit #: [id number] Attending Physician: FELICIA RIVERA Date of : 1965 DATE OF ADMISSION: 10/30/2009 PRIMARY CARE PHYSICIAN Nancy Stahl DO REASON FOR ADMISSION Intractable nausea and vomiting. The patient is a 44-year-old female who was transferred to [facility], for intractable vomiting for the past 24 hours. The patient states that she has had episodes of nausea and vomiting since February 2009 after her initial Az fundoplication. Her symptoms generally start with dry heaves. It was surmised by her primary physician that perhaps she had some phrenic nerve injury and recently added Thorazine to her medication regimen. She has noted a slight improvement in her symptoms. The patient had a typical episode with dry heaves and retching that began on 10/29. She has had some associated bilateral abdominal/flank pain with some mild epigastric pain. The patient was seen in her local emergency room. Because of her history of [place]'s disease, she was given hydrocortisone 100 mg IV. The patient states she has had difficulty keeping down her pills for the last 1 or 2 days. She denies any ill contacts. She has not had any known fever or chills. PAST MEDICAL HISTORY 1. Chronic/recurrent nausea and vomiting with recent normal esophagogastroduodenoscopy and gastric emptying time. 2. Asthma by history. 3. [place]'s disease diagnosed approximately 2 years ago. 4. Irritable bowel syndrome. 5. Anxiety. PAST SURGICAL HISTORY Cholecystectomy. Appendectomy. Total abdominal hysterectomy and bilateral salpingo-oophorectomy (CADEN/BSO) at age 22 for endometriosis. Left total hip replacement. Meckel's diverticula with intestinal resection at age 2. Numerous pancreatic duct stents with history of chronic pancreatitis. Celiac nerve blocks for chronic pancreatitis. Az fundoplication January 2009 followed by re-do Az fundoplication with repair of paraesophageal hernia June 2009. Removal of Port-A-Cath 10/27/2009. MEDICATION ALLERGIES: REGLAN, PHENERGAN, CODEINE, LEVAQUIN. HOME MEDICATIONS 1. Compazine 10 mg q.6 h. p.r.n. 2. Florinef 0.1 mg daily. 3. Lortab elixir 15 mL q.6 h. p.r.n. 4. Premarin 0.625 mg daily. 5. Thorazine 25 mg q.i.d. p.r.n. 6. Trazodone 100 mg nightly - p.r.n.-january repeat x1. 7. Vitamin D 2000 units daily. 8. Alprazolam 1 mg t.i.d. 9. Zofran 4-8 mg p.o. q.8 h. p.r.n. SOCIAL HISTORY The patient has been unable to work due to her recurrent illnesses. She has a 38-ncxr-easu history of tobacco use and quit in 1998. No alcohol use. FAMILY HISTORY Negative for pancreatitis. REVIEW OF SYSTEMS A 10-point review of systems otherwise notable for probable weight loss since the last admission. No cough or shortness of breath. No exertional chest pain. She does have episodic constipation. She does have some urinary urgency. PHYSICAL EXAMINATION Somewhat frail appearing female lying in bed in no acute distress. Temperature 99.8. Blood pressure 106/71. Heart rate 73. Respiratory rate 18. SKIN is warm and dry. HEENT: Anicteric. Oral mucosa is slightly dry. NECK is supple without thyromegaly. There is a bandage over the right neck where a skin lesion was excised. LYMPHATICS: No cervical or supraclavicular adenopathy. CHEST: Steri-Strips over site of removed Port-A-Cath. No significant tenderness. Chest resonant. LUNGS are clear. CARDIOVASCULAR: No jugular venous distention (JVD). S1, S2 normal. ABDOMEN: Nondistended. Bowel sounds present. No organomegaly. Occasional areas of point tenderness at the costal margins. No rebound tenderness. EXTREMITIES: There is a peripheral IV at the right foot. Negative Homans. LABORATORY STUDIES WBC 8.9, hemoglobin 15.5, hematocrit 45, MCV 87, platelet count 309,000. Urinalysis specific gravity 1.020, pH 6.0, ketones 3+, 0-2 WBCs, 0-2 RBCs, 5-10 epithelial cells. Serum sodium 139, potassium 4.0, chloride 103, CO2 23, BUN 15, creatinine 1.0, glucose 118, calcium 9.5. Liver tests within normal limits. Amylase 96, lipase 200 (normal 114-286). IMPRESSIONS 1. Recurrent nausea and vomiting. Consider cyclic vomiting with recent negative gastrointestinal (GI) evaluation. Also consider [place]'s disease and associated symptoms. The patient appears to only be on mineralocorticoid replacement therapy. Although the abdominal wall pain seems more consistent with pain associated with her recent history of dry heaves, might consider serositis associated with [place]'s disease. 2. Anxiety. PLAN 1. Treat the patient with IV fluids, antiemetics. 2. Would continue oral medications. If she is absolutely unable to keep down, her oral medications can temporarily treat with intravenous narcotic analgesics. It should be noted that the patient became quite irritable and upset when I suggested that we would want to try to avoid narcotic pain medications. 3. Would appreciate endocrinology input regarding optimum hormone replacement therapy. Since the patient has already received hydrocortisone, I will for now continue hydrocortisone at 50 mg q.8 h. pending their further recommendations. Felicia Rivera MD Dictated By: cc: DO Lobo Gastelum MD William Corporon, MD, ER at [place], [place] D PROFESSIONAL documented in this encounter Consult Notes * Odalys Jama MD - 11/13/2013 6:16 AM FIELD PROFESSIONAL REPORT Name: BARBARA MORGAN [facility] #: [id number] MRN/Unit #: [id number] Attending Physician: FELICIA RIVERA Consulting Physician: Odalys Gonzalez MD Date of : 1965 DATE OF CONSULTATION: REASON FOR CONSULTATION: Question of adrenal insufficiency. HISTORY OF PRESENT ILLNESS: Ms. Morgan is a 44-year-old lady who underwent redo Az fundoplication surgery on July 10, 2009. She was admitted with nausea and vomiting. She reports that her nausea is controlled on antiemetics that have been administered. Her history for adrenal insufficiency is as follows. She was seen by a physician, Marleny Salazar MD, an business process modeler in [place], [place], in 2004 following two episodes of syncope. 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 She was on these various hormone replacement therapies for about 1-1/2 years. Following this, she was seen by a physician named Jake Garber, who did some hormone testing in 2006 and discontinued DDAVP, growth hormone, prednisone, Cytomel, and Synthroid. She has had orthostatic dizziness in the past and he continued her on Florinef. She has noted improvement in orthostatic dizziness on Florinef. She reports not having had any episode of syncope since discontinuing prednisone three years ago. She was admitted to [facility] in March 2008 for septic shock secondary to a urinary tract infection and for Thrombotic thrombocytopenic purpura. She reports that she was discharged following that admission without being placed on steroids. She was admitted to [facility] and underwent redo Az fundoplication July 10, 2009. She was discharged at that time as well without being placed on steroids. She underwent menarche at the age of 10. She reports that her menstrual cycles were regular until her hysterectomy at age 22 for endometriosis. She does have a history of recurrent pancreatitis. She denies any history of diabetes or history of alcohol abuse. She was admitted to [facility] with fever, nausea, and vomiting. She received hydrocortisone 100 mg IV yesterday in the emergency room. Her blood pressure prior to receiving hydrocortisone in the emergency room was documented to be 145/70. She does have a fever in the 99-100 degrees Fahrenheit range. She denies abdominal pain. Her nausea is controlled on antiemetics. She denies spastic complaints. PAST MEDICAL HISTORY: Significant for: 1. Chronic recurrent nausea and vomiting with recent normal esophagogastroduodenoscopy and gastric emptying time. 2. Asthma. 3. History of adrenal insufficiency diagnosed in 2004. She has been of prednisone for the last three years. She does have a history of orthostatic dizziness and this is controlled on Florinef 0.1 mg daily. 4. History of irritable bowel syndrome. 5. History of anxiety. PAST SURGICAL HISTORY: 1. Cholecystectomy. 2. Appendectomy. 3. Total abdominal hysterectomy and bilateral salpingo-oophorectomy at age 22 for endometriosis. 4. 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 5. History of Meckel diverticula with intestinal resection at age 2. 6. History of numerous pancreatic duct stents with history of chronic pancreatitis. 7. History of celiac nerve block for chronic pancreatitis. 8. Az fundoplication January 2009, followed by redo Az fundoplication with repair of paraesophageal hernia in June 2009. 9. Removal of Port-A-Cath October 27, 2009. MEDICATION ALLERGIES: REGLAN, PHENERGAN, CODEINE, AND LEVAQUIN. CURRENT MEDICATIONS: Her home medications include: 1. Compazine 10 mg every 6 hours as needed. 2. Florinef 0.1 mg daily. 3. Lortab elixir 15 mL every 6 hours. 4. Premarin 0.625 mg daily. 5. Thorazine 25 mg four times a day. 6. Trazodone 100 mg at night. 7. Vitamin D 2000 international units daily. 8. Alprazolam 1 mg three times a day. 9. Zofran. SOCIAL HISTORY: She has been unable to work due to her recurrent illness. She has a 30-iwet-ovys of tobacco use and quit in 1998. She denies alcohol use. FAMILY HISTORY: Negative for pancreatitis. REVIEW OF SYSTEMS: As noted in the history. The remaining 10-point review of systems was performed and was negative. PHYSICAL EXAMINATION: Vital signs: Blood pressure is in the 120/70 range. Temperature is in the 99 to 100 degrees Fahrenheit range. Pulse is in the 70s. General: She appears well and in no distress. HEENT: Eyes: Extraocular movements are intact. No lid lag. No proptosis. No sinus tenderness. Mouth: No oral lesions. Neck: Supple. I don't feel any mass in the neck. There is no cervical lymphadenopathy. Lungs are clear bilaterally. Heart: S1 and S2 regular. Abdomen is soft. No mass. Neurologic: Motor strength is normal. Extremities: No clubbing, cyanosis or pedal edema. No sign of hyperpigmentation in the elbows, knees, or in the buccal mucosa. Skin is intact, without ulcers or rash. DIAGNOSTIC DATA: CBC reveals white blood cell count 10.3, hematocrit 43, platelets 317. Basic metabolic panel shows sodium 136, potassium 3.7, creatinine 0.7, BUN 11, glucose 161. TSH 0.46. FINAL IMPRESSION/PLAN: Ms. Morgan is a very pleasant lady with questionable history of adrenal insufficiency. Clinically, I doubt if she has adrenal insufficiency as she has not been on steroids for three years and has not had any episodes of syncope, since discontinuing steroids.Her Blood Pressure in the ER was elevated, prior to her getting hydrocortisone 100 mg IV She has been on Premarin, which was discontinued four days ago. I will obtain a cortisol stimulation test along with free cortisol levels and ACTH level, TSH, free T4, LH, FSH and Estradiol. I will obtain aldosterone level, basal and following cosyntropin. She has been off florinef for 3 days Even if her cortisol stimulation test is normal,free cortisol levels will still need to be assessed, as premarin can increase cortisol binding globulin and cortisol levels may need to be reassesed 6 weeks after discontinuation of premarin, if her free cortisols are subnormal. Thank you for allowing me to assist in this patient's care. We will follow along with you. Odalys Gonzalez MD Dictated By: cc: Authenticated and Edited by Odalys Gonzalez MD On 11/02/09 6:26:14 PM D PROFESSIONAL documented in this encounter Plan of Treatment Not on filedocumented as of this encounter Procedures Comments Procedure Name Priority Date/Time Associated Diag nosis DHEA-SO4 Routine 11/09/2009 3:13 AM FIELD PROFESSIONAL MISC LABORATORY TESTING Routine 11/03/2009 3:13 AM FIELD PROFESSIONAL POTASSIUM Routine 11/03/2009 3:13 AM FIELD PROFESSIONAL MAGNESIUM Routine 11/03/2009 3:13 AM FIELD PROFESSIONAL CREATININE Routine 11/03/2009 3:13 AM FIELD PROFESSIONAL POTASSIUM Routine 11/02/2009 11:42 AM FIELD PROFESSIONAL THYROID STIMULATING Routine 11/02/2009 HORMONE 1:41 AM FIELD PROFESSIONAL T7 Routine 11/02/2009 1:41 AM FIELD PROFESSIONAL BASIC METABOLIC PANEL Routine 11/02/2009 1:41 AM FIELD PROFESSIONAL VITAMIN D, 25-HYDROXY Routine 11/02/2009 1:41 AM FIELD PROFESSIONAL POTASSIUM Routine 11/01/2009 4:15 PM FIELD PROFESSIONAL CORTISOL Routine 11/01/2009 7:09 AM FIELD PROFESSIONAL CORTISOL Routine 11/01/2009 6:41 AM [facility]ELD PROF[facility]AL [facility] Routine 11/01/2009 5:58 AM FIELD PROFESSIONAL THYROID STIMULATING Routine 11/01/2009 HORMONE 5:58 AM FIELD PROFESSIONAL T4 FREE Routine 11/01/2009 5:58 AM FIELD PROFESSIONAL RENIN, PLASMA Routine 11/01/2009 5:58 AM FIELD PROFESSIONAL LUTEINIZING HORMONE Routine 11/01/2009 5:58 AM FIELD PROFESSIONAL FSH Routine 11/01/2009 5:58 AM FIELD PROFESSIONAL ESTRADIOL Routine 11/01/2009 5:58 AM FIELD PROFESSIONAL CORTISOL Routine 11/01/2009 5:58 AM FIELD PROFESSIONAL COMPREHENSIVE METABOLIC Routine 11/01/2009 PANEL 5:58 AM FIELD PROFESSIONAL COMPLETE BLOOD COUNT Routine 11/01/2009 5:58 AM FIELD PROFESSIONAL ADRENOCORTICOTROPIC Routine 11/01/2009 HORMONE 5:[address] ABDOMEN PELVIS W Routine 10/31/2009 CONTRAST 6:23 PM FIELD PROFESSIONAL URINALYSIS (INCLUDES Routine 10/31/2009 MICROSCOPIC REVIEW, IF 4:00 PM FIELD PROFESSIONAL INDICATED) CULTURE, URINE Routine 10/31/2009 4:00 PM FIELD PROFESSIONAL XR CHEST POST PICC Routine 10/31/2009 PLACEMENT RPO 15 DEG 1 3:20 PM FIELD PROFESSIONAL VIEW GLUCOSE POINT OF CARE Routine 10/31/2009 8:12 AM FIELD PROFESSIONAL THYROID CASCADE Routine 10/31/2009 2:01 AM FIELD PROFESSIONAL MAGNESIUM Routine 10/31/2009 2:01 AM FIELD PROFESSIONAL COMPLETE BLOOD COUNT Routine 10/31/2009 2:01 AM FIELD PROFESSIONAL BASIC METABOLIC PANEL Routine 10/31/2009 2:01 AM FIELD PROFESSIONAL GLUCOSE POINT OF CARE Routine 10/31/2009 12:41 AM FIELD PROFESSIONAL documented in this encounter Results * DHEA-SO4 (11/09/2009 3:13 AM FIELD PROFESSIONAL) DHEA-SO4 20 (L) 56 - 283 UG/DL [facility] Specimen Blood Performing Organization Address [facility] one Number [facility] [id number] [address] 11 SUNQUEST * Creatinine (11/03/2009 3:13 AM FIELD PROFESSIONAL) Pathologist [facility] Creatinine 0.7 0.4 - 1.1 MG/DL [facility] eGFR Female 90 [facility] Non-AA Comment: Chronic Kidney Disease less than 60 mL/min/1.73 sq.m Kidney failure less than 15 mL/min/1.73 sq.m eGFR Female AA 108 SUNQUEST Comment: Chronic Kidney Disease less than 60 mL/min/1.73 sq.m Kidney failure less than 15 mL/min/1.73 sq.m Specimen Blood Performing Organization Address [facility] one Number [facility] [id number] [address] 11 SUNQUEST * Magnesium (11/03/2009 3:13 AM FIELD PROFESSIONAL) Only the most recent of 2 results within the time period is included. Magnesium 1.5 1.4 - 2.0 MEQ/L [facility] [[email or web address]] Specimen Blood Performing Organization Address [facility] one Number [facility] [id number] [address] 11 SUNQUEST * Potassium (11/03/2009 3:13 AM FIELD PROFESSIONAL) Only the most recent of 3 results within the time period is included. Potassium 3.7 3.5 - 5.1 MEQ/L [facility] Specimen Blood Performing Organization Address [facility] one Number [facility] [id number] [address] 11 SUNQUEST * Misc Laboratory Testing (11/03/2009 3:13 AM FIELD PROFESSIONAL) Only the most recent of 2 results within the time period is included. [facility] Ref Lab Test Name: 21-Hydroxylase Susie [facility] Miscellaneous Comment: Test Name: 21-Hydroxylase Susie Specimen Source: Serum Result: <1 U/ml Reference Range: <1 Test performed at: [facility] Specimen Blood Performing Organization Address [facility] one Number [id number] [place], [place] [address] 11 SUNQUEST * Basic Metabolic Panel (11/02/2009 1:41 AM FIELD PROFESSIONAL) Only the most recent of 2 results within the time period is included. Sodium 138 134 - 144 MEQ/L [facility] Potassium 3.4 (L) 3.5 - 5.1 MEQ/L [facility] Chloride 105 101 - 111 MEQ/L [facility] Carbon Dioxide 29 23 - 32 MEQ/L [facility] Anion Gap 4 3 - 15 [facility] Creatinine 0.8 0.4 - 1.1 MG/DL [facility] Blood Urea 10 8 - 26 MG/DL [facility] Nitrogen Glucose 89 65 - 100 MG/DL [facility] Calcium 8.1 (L) 8.8 - 10.5 MG/DL [facility] eGFR Female AA 93 [facility]QUEST Comment: Chronic Kidney Disease less than 60 mL/min/1.73 sq.m Kidney failure less than 15 mL/min/1.73 sq.m eGFR Female 77 [facility]QUEST Non-AA Comment: Chronic Kidney Disease less than 60 mL/min/1.73 sq.m Kidney failure less than 15 mL/min/1.73 sq.m Specimen Blood Performing Organization Address [facility] one Number [facility] [id number] [address] 11 SUNQUEST * T7 (11/02/2009 1:41 AM FIELD PROFESSIONAL) T Uptake 43 32 - 48 % [facility] Total Thyroxine 10.6 4.5 - 11.0 UG/DL [facility] T7 Index 4.56 1.44 - 5.28 [facility] Specimen Blood Performing Organization Address [facility] one Number [id number] [place], [place] [address] SUNQUEST * Thyroid Stimulating Hormone (11/02/2009 1:41 AM FIELD PROFESSIONAL) Only the most recent of 2 results within the time period is included. Thyroid 2.23 0.45 - 4.50 UIU/ML [facility] Stimulating Hormone Specimen Blood Performing Organization Address [facility] one Number [facility] [id number] [address] 11 SUNQUEST * Vitamin D, 25-Hydroxy (11/02/2009 1:41 AM FIELD PROFESSIONAL) Vitamin D <5.0 NG/ML [facility] 25-Hydroxy D2 Vitamin D 30.0 NG/ML [facility] 25-Hydroxy D3 Vitamin D 30 25 - 80 NG/ML [facility] 25-Hydroxy Specimen Blood Performing Organization Address [facility] one Number [facility] [id number] [address] 11 SUNQUEST * Cortisol (11/01/2009 7:09 AM FIELD PROFESSIONAL) Only the most recent of 3 results within the time period is included. Cortisol 35.2 UG/DL [facility] Comment: Reference ranges: AM 6.7 - 22.6 ug/dl PM 0.0 - 10.0 ug/dl Specimen Blood Performing Organization Address [facility] one Number [facility] [id number] [address] 11 SUNQUEST * Complete Blood Count (11/01/2009 5:58 AM FIELD PROFESSIONAL) Only the most recent of 2 results within the time period is included. WBC 9.42 4.00 - 11.00 TH/UL [facility] RBC 4.43 4.00 - 5.00 MIL/UL [facility] Hemoglobin 13.0 12.0 - 15.0 G/DL [facility] Hematocrit 38 36 - 45 % [facility] MCV 86 80 - 99 FL [facility]QUEST MCH 29 27 - 34 PG SUNQUEST MCHC 34 32 - 36 % [facility] RDW 14.6 (H) 9.0 - 14.5 % [facility] Platelet Count 245 140 - 400 TH/UL [facility]QUEST MPV 9.4 9.4 - 12.3 FL SUNQUEST Specimen Blood Performing Organization Address [facility] one Number [facility] [id number] [address] 11 SUNQUEST * Comprehensive Metabolic Panel (11/01/2009 5:58 AM FIELD PROFESSIONAL) Albumin 3.1 (L) 3.5 - 5.0 G/DL [facility] Aspartate 13 (L) 15 - 41 IU/L [facility] Aminotransferas e Bilirubin Total 0.8 0.3 - 1.4 MG/DL [facility] Protein Total 5.2 (L) 6.0 - 8.0 G/DL [facility] Serum Calcium 8.5 (L) 8.8 - 10.5 MG/DL [facility] Creatinine 0.7 0.4 - 1.1 MG/DL SUNQUEST Glucose 83 65 - 100 MG/DL SUNQUEST Alkaline 41 (L) 42 - 128 IU/L SUNQUEST Phosphatase Sodium 136 134 - 144 MEQ/L SUNQUEST Potassium 3.4 (L) 3.5 - 5.1 MEQ/L SUNQUEST Chloride 104 101 - 111 MEQ/L SUNQUEST Carbon Dioxide 26 23 - 32 MEQ/L SUNQUEST Blood Urea 10 8 - 26 MG/DL SUNQUEST Nitrogen Anion Gap 6 3 - 15 SUNQUEST Alanine 8 (L) 14 - 63 IU/L SUNQUEST Aminotransferas e eGFR Female AA 108 SUNQUEST Comment: Chronic Kidney Disease less than 60 mL/min/1.73 sq.m Kidney failure less than 15 mL/min/1.73 sq.m eGFR Female 90 SUNQUEST Non-AA Comment: Chronic Kidney Disease less than 60 mL/min/1.73 sq.m Kidney failure less than 15 mL/min/1.73 sq.m Specimen Blood Performing Organization Address [facility] one Number SLRL [id number] [place] [phone] 11 SUNQUEST * FSH (11/01/2009 5:58 AM FIELD PROFESSIONAL) FSH 57 IU/L SUNQUEST Comment: Female Reference Range: Follicular 3-10 IU/L Midcycle 3-33 IU/L Luteal 2-9 IU/L Postmenopausal 23-116 IU/L Prepubertal Children <10 IU/L Specimen Blood Performing Organization Address [facility] one Number SLRL [id number] [place] [address] 11 SUNQUEST * T4 Free (11/01/2009 5:58 AM FIELD PROFESSIONAL) T4 Free 1.5 0.6 - 1.6 NG/DL SUNQUEST Specimen Blood Performing Organization Address [facility] one Number [address]RL [id number] [place] [address] 11 SUNQUEST * Luteinizing Hormone (11/01/2009 5:58 AM FIELD PROFESSIONAL) Luteinizing 22 IU/L SUNQUEST Hormone Comment: Female Reference Range: Follicular Phase 2 - 13 IU/L Midcycle Peak 9 - 76 IU/L Luteal Phase 1 - 17 IU/L Postmenopausal 16 - 54 IU/L Specimen Blood Performing Organization Address [facility] one Number RL [id number] [place] [phone] 11 SUNQUEST * Estradiol (11/01/2009 5:58 AM FIELD PROFESSIONAL) Estradiol Serum <20 PG/ML SUNQUEST Comment: Female Reference Range: Premenopausal 24 - 273 pg/ml Postmenopausal 20 - 88 pg/ml Specimen Blood Performing Organization Address [facility] one Number RL [id number] [place] [phone] 11 SUNQUEST * Adrenocorticotropic Hormone (11/01/2009 5:58 AM FIELD PROFESSIONAL) Adrenocorticotr 112 (H) 10 - 60 PG/ML SUNQUEST opic Hormone Specimen Blood Performing Organization Address [facility] one Number JESUSRL [id number] [place] [phone] 11 SUNQUEST * Renin, Plasma (11/01/2009 5:58 AM FIELD PROFESSIONAL) Renin Plasma <0.6 SUNQUEST Comment: This test was developed and its performance characteristics determined by [facility]. It has not been cleared or approved by the [place] Food and Drug Administration. Renin Reference Upright (Peripheral Vein) SUNQUEST Range Comment: Upright (Peripheral Vein) NA - Depleted Range : 2.9-10.8 Mean: 5.9 NA - Replete Range : <=0.6-3.0 Mean: 1.0 Specimen Blood Performing Organization Address [facility] one Number RL [id number] [place] [address] 11 SUNQUEST * CT Abdomen Pelvis w contrast (10/31/2009 6:23 PM FIELD PROFESSIONAL) Specimen Narrative [facility] Patient: BARBARA MORGAN Phone #: Med Rec#: [id number] Sex: F : 1965 Latricia#: [id number] Location: [facility] [address]32 01 Check-in#: [id number] Procedure Requested: [id number] CT ABD PELVI S WITH CONTRAST Reason For Exam: ABD PAIN Exam Ordered: 10/31/2009 113 9 Exam Date/Time: 10/31/2009 1848 Check-in Date/Time: 10/31/2009 1805 Attendin FELICIA RIVERA "" Requestin FELICIA RIVERA "" Referrin NO, REFERRING Primary Care: NANCY STAHL "" These images and this report have been reviewed and edited by the Staff Radiologist. CT ABD PELVIS WITH CONTRAST DATE: Oct 31, 2009 6:48:00 PM INDICATION: History of fundoplication a nd revision in Jan, 2009 and June,, respectively. Negative p rior esophagram, now with intractable vomiting, right lower quadr ant pain and fever COMPARISON: None. Technique: Axial 5 mm images of the abdomen and pe lvis were obtained following administration of 85 mL Omnipaque 350 intravenous contrast. Delayed images were obtained as well as reforma tted images in coronal and sagittal planes. The patient was unab le to tolerate oral contrast due to intractable vomiting. Findings: Injection granuloma is note d in the right buttocks. Lung Bases: Mild inferior lingular and linear left basilar atelectasis. Minimal posterior segmental bibasilar s egmental atelectasis. The remaining visualized portions of the evette ng are otherwise clear. The heart is normal in size without pericardial e ffusion. Abdomen: The liver is normal in size and enhance s homogeneously. Two small hypervascular lesions in the right hepa tic lobe measuring approximately 7 mm each which are seen at finally ear ly phase of contrast enhancement only. Focal fat near the falciform ligament. Status postcholecystectomy. No intrahep atic or extrahepatic biliary ductal dilatation. Marked lobulated contour of the spleen with subtle areas of hyperdense hypodensities along its outer cortex. T his may represent multiple areas of previous infarct. The pancreas enhances homogeneously wit hout pancreatic duct dilatation. The adrenal glands are normal. Mild cortical undulation in apparent th inning along the the cortex of the right kidney. The kidneys otherwise demonstrate huseyin l corticomedullary differentiation symmetrically without e vidence of hydronephrosis or hydroureter. No nephrolithiasis. The celiac trunk, SMA and SADE are paten t. Portal vein, SMV and splenic veins are patent. Minimal atherosclerot ic disease. No retroperitoneal mass or significant lymphadenopathy. No ascites or fluid collections. Postsurgical changes of Az fundopli cation are noted in the proximal stomach. The remaining stomach is incom pletely distended limiting evaluation for wall thickening. Small b owel is normal in caliber. Terminal ileum is normal. Small tubular structure noted best on coronal image #53 with the cecum lying in the r ight lower pelvis, may represent the appendix. No secondary signs of inf lammatory changes are noted in the right lower quadrant. Moderate amou nt of stool noted throughout the colon redundant sigmoid is noted. Colon is normal in caliber without obvious wall thickening or obstruction. No diverticular disease. Pelvis: The uterus is surgically absent. Urinary bladder is well distended witho ut wall thickening. No suspicious pelvic mass or significant lymphadenopa thy is seen. Skeletal Structures: No suspicious osseus lesions. Total lef t hip arthroplasty with cerclage wire about the optimal left femur. Mode rate degenerative disc disease, most prominent at L5-S1 with vacuum dis c phenomenon. Foci of air is noted protruding posteriorly into the s geovany canal at the level of L5-S1, likely retained within a bulging or herniated disc. There is minimal retrolisthesis of L5 on S1. Impression: Subcentimeter hypervascular lesions in the right lobe the liver seen only on the early phase of contrast enh ancement the likely represent benign lesion such as FNH or small sophie ngiomas. This can be followed with repeat examination an approximatel y 3 months to ensure stability. MRI of the abdomen at that time would l ikely be more definitive. Postsurgical changes of Az fundopli cation. No acute CT abnormality in the abdomen or pelvis. Signed (Authenticated, Released) Date-T abdias: 11/01/2009 1100 Principal Bioinformatics Specialist- CECY Wilder, Staff Radiologist Dictated By- SAE OROZCO M.D., Reside nt Staff Physician- CECY Hernandez, Staff Radiologist Authenticated By- CECY Wilder, Staff Radiologist Procedure Note Interface, Rad Conversion - 11/14/2013 1:49 AM FIELD PROFESSIONAL REPORT Patient: BARBARA MORGAN Phone #: [facility] Rec#: [id number] Sex: F : 1965 [facility]#: [id number] Location: [facility] [address] 01 Check-in#: [id number] Procedure Requested: [id number] CT ABD PELVIS WITH CONTRAST Reason For Exam: ABD PAIN Exam Ordered: 10/31/2009 1139 Exam Date/Time: 10/31/2009 1848 Check-in Date/Time: 10/31/2009 2535 AttendinFELICIA PERSON "" Requestin FELICIA RIVERA "" Referrin IMTIAZ, REFERRING Primary Care: NANCY STAHL "" These images and this report have been reviewed and edited by the Staff Radiologist. CT ABD PELVIS WITH CONTRAST DATE: Oct 31, 2009 6:48:00 PM INDICATION: History of fundoplication and revision in Jan, 2009 and June,, respectively. Negative prior esophagram, now with intractable vomiting, right lower quadrant pain and fever COMPARISON: None. Technique: Axial 5 mm images of the abdomen and pelvis were obtained following administration of 85 mL Omnipaque 350 intravenous contrast. Delayed images were obtained as well as reformatted images in coronal and sagittal planes. The patient was unable to tolerate oral contrast due to intractable vomiting. Findings: Injection granuloma is noted in the right buttocks. Lung Bases: Mild inferior lingular and linear left basilar atelectasis. Minimal posterior segmental bibasilar segmental atelectasis. The remaining visualized portions of the lung are otherwise clear. The heart is normal in size without pericardial effusion. Abdomen: The liver is normal in size and enhances homogeneously. Two small hypervascular lesions in the right hepatic lobe measuring approximately 7 mm each which are seen at finally vaibhav y phase of contrast enhancement only. Focal fat near the falciform ligament. Status postcholecystectomy. No intrahepatic or extrahepatic biliary ductal dilatation. Marked lobulated contour of the spleen with subtle areas of hyperdense hypodensities along its outer cortex. This may represent multiple areas of previous infarct. The pancreas enhances homogeneously without pancreatic duct dilatation. The adrenal glands are normal. Mild cortical undulation in apparent thinning along the the cortex of the right kidney. The kidneys otherwise demonstrate normal corticomedullary differentiation symmetrically without evidence of hydronephrosis or hydroureter. No nephrolithiasis. The celiac trunk, SMA and SADE are patent. Portal vein, SMV and splenic veins are patent. Minimal atherosclerotic disease. No retroperitoneal mass or significant lymphadenopathy. No ascites or fluid collections. Postsurgical changes of Az fundoplication are noted in the proximal stomach. The remaining stomach is incompletely distended limiting evaluation for wall thickening. Small bowel is normal in caliber. Terminal ileum is normal. Small tubular structure noted best on coronal image #53 with the cecum lying in the right lower pelvis, may represent the appendix. No secondary signs of inflammatory changes are noted in the right lower quadrant. Moderate amount of stool noted throughout the colon redundant sigmoid is noted. Colon is normal in caliber without obvious wall thickening or obstruction. No diverticular disease. Pelvis: The uterus is surgically absent. Urinary bladder is well distended without wall thickening. No suspicious pelvic mass or significant lymphadenopathy is seen. Skeletal Structures: No suspicious osseus lesions. Total left hip arthroplasty with cerclage wire about the optimal left femur. Moderate degenerative disc disease, most prominent at L5-S1 with vacuum disc phenomenon. Foci of air is noted protruding posteriorly into the spinal canal at the level of L5-S1, likely retained within a bulging or herniated disc. There is minimal retrolisthesis of L5 on S1. Impression: Subcentimeter hypervascular lesions in the right lobe the liver seen only on the early phase of contrast enhancement the likely represent benign lesion such as FNH or small hemangiomas. This can be followed with repeat examination an approximately 3 months to ensure stability. MRI of the abdomen at that time would likely be more definitive. Postsurgical changes of Az fundoplication. No acute CT abnormality in the abdomen or pelvis. Signed (Authenticated, Released) Date-Time: 11/01/2009 1100 Principal Bioinformatics Specialist- CECY MONTES M.D., Staff Radiologist Dictated By- SAE OROZCO M.D., Resident Staff Physician- CECY MONTES M.D., Staff Radiologist Authenticated By- CECY MONTES M.D., Staff Radiologist Performing Organization Address [facility] one Number INOCENCIO * Culture, Urine (10/31/2009 4:00 PM FIELD PROFESSIONAL) Specimen Urine Narrative Performed At REPORT SUNQUEST Specimen: URINE Collected: 10/31/2009 16:00 Status: Final Last Updated: 21:23 Culture result (Final) No growth Performing Organization Address [facility] one Number [id number] [place] [phone] SUNQUEST * Urinalysis (10/31/2009 4:00 PM FIELD PROFESSIONAL) Appearance, Yellow SUNQUEST Urine Specific 1.020 1.001 - 1.030 SUNQUEST [place], UA PH Urine 6.5 5.0 - 8.0 SUNQUEST Hemoglobin Negative Negative SUNQUEST Urine Ketones Urine Small (A) Negative SUNQUEST Glucose Urine Negative Negative SUNQUEST Protein Urine Negative Negative SUNQUEST Qual Leukocyte Negative Negative SUNQUEST Esterase Urobilinogen Negative Negative SUNQUEST Urine Bilirubin Urine Negative Negative SUNQUEST Specimen Urine Performing Organization Address [facility] one Number RL [address] [phone] SUNQUEST * XR Chest post PICC placement RPO 15 deg 1 view (10/31/2009 3:20 PM FIELD PROFESSIONAL) Specimen Narrative Performed At REPORT [facility] Patient: BARBARA MORGAN Phone #: [facility] Rec#: [id number] Sex: F : 1965 Latricia#: [id number] Location: [place] [address] Check-in#: [id number] Procedure Requested: [id number] DX CHEST POS T PICC RPO 15 DEG 1V Reason For Exam: LINE PLACEMENT Exam Ordered: 10/31/2009 151 2 Exam Date/Time: 10/31/2009 1525 Check-in Date/Time: 10/31/2009 1516 Attendin FELICIA RIVERA "" Requestin FELICIA RIVERA "" Referrin IMTIAZ, REFERRING Primary Care: NANCY STAHL "" These images and this report have been reviewed and edited by the Staff Radiologist. DX CHEST POST PICC RPO 15 DEG 1V INDICATION: LINE PLACEMENT. COMPARISON STUDY: Portable chest radiog raph from August 11, 2009. FINDINGS: The left costophrenic recess is excluded from the [id number]. Life Support Devices: Left PICC tip in the right atrium, 3.5 cm distal to the superior cavoatrial junction. In terval removal of right subclavian port. Lungs: The lung volume is normal. No fo tony airspace disease. Normal pulmonary vasculature. Pleura: No pleural effusion or pneumoth orax. Heart and Mediastinum: The cardiomedias tinal silhouette and great vessels are stable. Chest wall: Ovoid radiolucency projecti ng over the right upper lateral chest, may be related to soft tissue ai r from recent intervention. IMPRESSION: 1. Interval removal of right subclavian port. 2. Left PICC as described above. 3. No consolidation. Signed (Authenticated, Released) Date-T abdias: 10/31/2009 1820 Principal Bioinformatics Specialist- ENRIQUE GOODRICH M.D., Staff Radiologist Dictated By- MITCH STUART M.D., Res ident Staff Physician- ENRIQUE GONZALEZ M.D., Staff Radiologist Authenticated By- ENRIQUE GOODRICH M.D., Staff Radiologist Procedure Note Interface, Rad Conversion - 11/14/2013 1:49 AM FIELD PROFESSIONAL REPORT Patient: BARBARA MORGAN Phone #: Med Rec#: [id number] Sex: F : 1965 Latricia#: [id number] Location: [facility] Check-in#: [id number] Procedure Requested: [id number] DX CHEST POST PICC RPO 15 DEG 1V Reason For Exam: LINE PLACEMENT Exam Ordered: 10/31/2009 1512 Exam Date/Time: 10/31/2009 1525 Check-in Date/Time: 10/31/2009 1516 AttendinFELICIA PERSON "" RequestinFELICIA PERSON "" Referrin NO, REFERRING Primary Care: NANCY STAHL "" These images and this report have been reviewed and edited by the Staff Radiologist. DX CHEST POST PICC RPO 15 DEG 1V INDICATION: LINE PLACEMENT. COMPARISON STUDY: Portable chest radiograph from August 11, 2009. FINDINGS: The left costophrenic recess is excluded from the [id number]. Life Support Devices: Left PICC tip in the right atrium, 3.5 cm distal to the superior cavoatrial junction. Interval removal of right subclavian port. Lungs: The lung volume is normal. No focal airspace disease. Normal pulmonary vasculature. Pleura: No pleural effusion or pneumothorax. Heart and Mediastinum: The cardiomediastinal silhouette and great vessels are stable. Chest wall: Ovoid radiolucency projecting over the right upper lateral chest, may be related to soft tissue air from recent intervention. IMPRESSION: 1. Interval removal of right subclavian port. 2. Left PICC as described above. 3. No consolidation. Signed (Authenticated, Released) Date-Time: 10/31/2009 182 Principal Bioinformatics Specialist- ENRIQUE LEWIS M.D., Staff Radiologist Dictated By- MITCH STUART M.D., Resident Staff Physician- ENRIQUE LEWIS M.D., Staff Radiologist Authenticated By- ENRIQUE LEWIS M.D., Staff Radiologist Performing Organization Address [facility] one Number MCKESSON * Glucose Point of Care (10/31/2009 8:12 AM FIELD PROFESSIONAL) Only the most recent of 2 results within the time period is included. Glucose 124 (H) 65 - 100 MG/DL SUNQUEST Specimen Blood Performing Organization Address City/[facility] Ph one Number SLRL [id number] [place], [place] [address] SUNQUEST * Thyroid [place] (10/31/2009 2:01 AM FIELD PROFESSIONAL) Thyroid 0.46 0.45 - 4.50 UIU/ML SUNQUEST Stimulating Hormone Specimen Blood Performing Organization Address [facility]/State[facility] one Number SLRL [address] [place], [place] [address] SUNQUEST documented in this encounter Visit Diagnoses Diagnosis Nausea with vomiting documented in this encounter
--- OUTSIDE RECORDS SUMMARY | 2020-02-08 04:19 | XMS REPORT | Encounter Summary ---
Author Author [facility] Organization [facility] Address Unknown Phone Unavailable Care Team Providers Care Power System Electrical Engineer Name Role Phone PCP Unavailable Encounter Details Care Team Description Date Type Department Jim Ruiz MD [address] [place], [place] [id number] Nausea with Vomiting [facility]07/[facility] [address] 08/14/2009 [place] [address] Social History Date Tobacco Use Types Packs/Day Years Used Never Assessed Sex Assigned at Date Recorded Not on file Industry Job Start Date Occupation Not on file Not on file Not on file Travel End Travel History Travel Start No recent travel history available. documented as of this encounter Discharge Summaries * Lobo Ruiz MD - 11/13/2013 6:54 AM DIMENSIONAL INTEGRATION ENGINEER REPORT Name: BARBARA MORGAN MRN/Unit #: [id number] Attending Physician: Jim RUIZ Date of : 1965 DATE OF ADMISSION: 08/07/2009 DATE OF DISCHARGE: 08/14/2009 PRINCIPAL DIAGNOSIS: Nausea and vomiting status post Az fundoplication last month. DISCHARGE DIAGNOSIS: Nausea and vomiting status post Az fundoplication last month. PRINCIPAL PROCEDURE: A PICC line placement on 08/11/2009 by the PICC nurse. BRIEF PAST MEDICAL HISTORY: This is a 44-year-old woman who is well known to our service as she had a Az fundoplication back in January of this year for a longstanding history of gastroesophageal reflux disease. She ultimately developed a narrowing of her gastroesophageal junction. She was scheduled for a redo Az fundoplication with hiatal hernia repair on 07/10/[address] Ruiz performed laparoscopically. She did relatively well postoperatively, went home, and she had been in contact with Dr. Ruiz's office several times with complaints of nausea and vomiting, and now she presents for admission for worsening nausea and vomiting and evaluation. She had gone to an outlying facility prior to this admission where she had a barium swallow study done. This swallow study was read out as normal narrowing at the gastroesophageal junction. From this facility she was transferred here. Comorbidities include iron deficiency anemia, gastritis, irritable bowel syndrome, Nance disease, adrenal insufficiency, asthma, and a nervous condition. HOSPITAL COURSE: She was admitted on the to the Med/Surg floor. A GI consult was obtained. An upper EGD was done the next day, it showed no stricture, no hernia, no inflammatory process. The dilator was passed easily through the GE junction. The patient continued to have complaints of nausea. The following day gastric emptying/esophagram was done in the radiology department. This showed normal transit of contrast, no spasms. The patient continued to complain of nausea and inability to keep food down, however her albumin and prealbumin were both within normal range. The patient was ultimately made NPO. On the was placed, TPN was initiated with plans of sending the patient home on TPN due to her inability to maintain a diet in the hospital. After 1 day of NPO status the patient was complaining of hunger. She was allowed to start some liquids the following day and then advance to a regular diet on the . On the day of discharge the patient's vital signs are as follows. Her temperature is 96.9. Her pulse is 80. Her respirations are 18. Her blood pressure is 99/68 and her saturations are 100% on room air. She is up and ambulating and she is able to go outside. She is awake, alert and able to converse rationally, states that she feels like she has been trying to eat too fast and that has contributed to her nausea and that if she is going slower her nausea is improved and she is able to keep more down despite minimal emesis ever being observed. Her respirations are even and unlabored. Her lungs are clear bilaterally. She has S1, S2. Her abdomen is soft, flat, slightly tender in mid epigastric area especially after eating. She does complain of frequent hiccups. She is having normal bowel function. She states that if she eats too much too fast it is sticking in her midsternal area and as mentioned above this is improved after slowing down her intake and chewing her food better. She is voiding without difficulty clear yellow urine. LABORATORY DATA: Obtained while in the hospital includes a BMP which showed a sodium 139, potassium 4, chloride 107, carbon dioxide 30, BUN 12, creatinine 0.8, glucose 89, calcium 8.2. She also had a phosphorous drawn which was 4.4. Additionally her last prealbumin and albumin were as follows: Prealbumin was 19.7. Her albumin was 3.3. DISCHARGE INSTRUCTIONS: The patient is being sent home in good condition with dietary recommendations to eat small amounts of soft foods, to not use straws, to avoid carbonation. She is to continue to take a protein shake or supplement three times a day. Encouraged her to take a chewable multivitamin or an elixir. She is to resume her preop activity. She is to follow-up with Dr. Ruiz via phone in 2 to 3 weeks. She does not need to come to the clinic. DISCHARGE MEDICATIONS: Include her home medicines which were Ambien CR 12.5 mg daily, Colace 100 mg two times a day, Florinef 0.1 mg daily, Lortab elixir 15 ml every 6 hours as needed, Premarin 0.625 mg daily, trazodone 150 mg at bedtime, Valtrex 500 mg daily, vitamin D 2000 international units daily, Xanax 1 mg three times a day as needed. In addition to that she will have a lidocaine patch for point tenderness in her epigastric region, as well as Zofran 4 to 8 mg p.o. every 8 hours, Compazine 10 mg p.o. every 8 hours. She will also be sent home with some Compazine 25 mg rectal suppositories every 12 hours as needed for severe nausea and inability to keep down p.o. The patient verbalizes understanding of her discharge instructions and medications. Lobo Ruiz MD Dictated By: Samantha Olvera RN, DOGMAN/WOMAN-C cc: NSIONAL INTEGRATION ENGINEER documented in this encounter Medications at Time [...] as of this encounter H&P Notes * Lobo Ruiz MD - 11/13/2013 6:57 AM DIMENSIONAL INTEGRATION ENGINEER REPORT Name[id number]/Unit #: [id number] Attending Physician: Jim RUIZ Date of : 1965 DATE OF ADMISSION: 08/07/2009 ATTENDING PHYSICIAN: Lobo Ruiz MD CHIEF COMPLAINT: Postop nausea and vomiting. HISTORY OF PRESENT ILLNESS: The patient is a 44-year-old female who has a long-standing history of gastroesophageal reflux disease. She underwent laparoscopic Az fundoplication on 01/17/2009 at an outlying facility. However, she had problems swallowing liquids after the surgery and endoscopy revealed a narrow gastroesophageal junction. She was admitted by Dr. Ruiz on 07/10/2009 for laparoscopic revision of her Az fundoplication with hiatal hernia repair. The patient was discharged on 07/14/2009 without any complications. The patient states that she had "flu" about one week after discharge, with fever of 100.2 degrees Fahrenheit, and had nausea, vomiting, and diarrhea. Her symptoms improved one week later, except for the nausea and vomiting. Her vomitus was yellowish in color, which occurred about three days per week. She started to have left lower chest and upper abdominal pain about five days ago, which is puncture-like or tearing-like, about 8-10. The pain is partially alleviated by lying flat and is worsened by standing up. She went to [facility] and a barium swallow study, according to the patient, showed lower esophageal obstruction. A central line was placed and she was transferred to our hospital. PAST MEDICAL HISTORY: Significant for the patient's anemia, arthritis, irritable bowel syndrome, asthma, nervousness, Nance disease, and adrenal deficiency. CURRENT MEDICATIONS: Ambien, fludrocortisone, trazodone, Valtrex, and Xanax. ALLERGIES: THE PATIENT IS ALLERGIC TO REGLAN, CODEINE, AND LEVAQUIN. FAMILY HISTORY: TTP and hypertension. 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 She has a 20-pack year history of tobacco usage and quit in 1998. Denies alcohol use. She smokes marijuana and her last use of marijuana was about 5-6 days ago. REVIEW OF SYSTEMS: The patient denies shortness of breath or palpitations. Denies cough or night sweats. Denies abdominal distention. She is passing flatus. Denies urgency or burning sensation. She lost 9 pounds after surgery. PHYSICAL EXAMINATION: Temperature 98.6, pulse 65, respirations 18, blood pressure 141/88, O2 saturation 97% on room air. General: Alert and oriented times three, in no acute distress. HEENT: Atraumatic and normocephalic. No scleral icterus. Neck: Supple. No jugular venous distention, no lymphadenopathy. Chest: Clear to auscultation bilaterally. No rhonchi or rales. Cardiovascular: S1 and S2 are heard, regular rate and rhythm. No murmurs. Left lower chest is tender to palpation. A Abdomen: Bowel sounds positive, nondistended. Left upper quadrant and epigastric area are tender to palpation. No guarding, no rebound, and no mass. Extremities: No pitting edema. Range of motion is normal. IMPRESSION: A 44-year-old who is post Az fundoplication, with nausea and vomiting. PLAN: 1. NPO and IV fluid support. 2. Lab for CBC, BMP, magnesium, phosphorus, and prealbumin. 3. Plan for TPN support. 4. Plan for EGD. 5. Pain control. 6. Will discuss with staff surgeon, Dr. August, for further plans. Lobo Ruiz MD Dictated By: Rogelio Esteban MD cc: NSIONAL INTEGRATION ENGINEER documented in this encounter Consult Notes * Cordell Armstrong - 11/13/2013 6:56 AM DIMENSIONAL INTEGRATION ENGINEER REPORT Name: BARBARA MORGAN MRN/Unit #: [id number] Attending Physician: Jim RUIZ Consulting Physician: Cordell Armstrong MD Date of : 1965 DATE OF CONSULTATION: 08/08/2009 Requesting Physician: Lobo Ruiz MD REASON FOR CONSULTATION: Nausea, vomiting, and dysphagia. HISTORY OF PRESENT ILLNESS: This is a 44-year-old female admitted to the surgery service yesterday with nausea and vomiting. Patient has a longstanding history of gastroesophageal reflux disease and is status post Az fundoplication on January 17, 2009 at an outside hospital, apparently in [place], [place]. She had persistent dysphagia and weight loss following that procedure. Sometime around March 2009, she underwent an upper endoscopy under the care of Dr. Jorge Luis Borden as per patient which apparently revealed a "narrow GE junction" as per patient and she underwent dilation. Patient continued to have dysphagia and weight loss and she eventually saw Dr. Mendez Ruiz. An esophageal manometry was performed June 20, 2009 which was essentially unremarkable and Dr. Mendez Ruiz went ahead with laparoscopic takedown and revision of the Az fundoplication. A paraesophageal hernia was noted which was repaired and the Az fundoplication was repaired as well. Patient underwent this procedure July 10, 2009. She initially did well after discharge from [facility], however, approximately 1 week after surgery, she developed upper respiratory symptoms which were accompanied by nausea and retching. Her symptoms improved briefly for 1 to 2 days but they then recurred approximately 1 week ago with serve nausea, retching and dysphagia to both solids and liquids. The patient states she feels food gets stuck in the middle of her chest and then she will just vomit the food back up again. Patient states she has lost approximately 13 pounds since her last surgery and that she has lost approximately 40 pounds following her first Az fundoplication. She currently denies hematemesis, melena, hematochezia, diarrhea, and constipation. PAST MEDICAL HISTORY: 1. Pancreatitis. Patient states it is non-alcoholic and that the etiology is unknown. She underwent stenting of her pancreatic duct at [facility] in 2005. Patient denies a history of alcoholism. 2. Irritable bowel syndrome. 3. Asthma. 4. Nance's disease diagnosed approximately 16 months ago. Patient feels this disease is under control. 5. Gastroesophageal reflux disease. PAST SURGICAL HISTORY: 1. Az fundoplication x 2. 2. Medical diverticulum, status post resection. 3. Cholecystectomy. 4. Appendectomy. 5. Total abdominal hysterectomy. 6. Left total hip repair. CURRENT MEDICATIONS: Florinef, trazodone, Valtrex, Xanax, Lidocaine patch, and Ambien. ALLERGIES AND INTOLERANCES: REGLAN, CODEINE, AND LEVAQUIN. FAMILY MEDICAL HISTORY: No history of gastric, hepatic or colonic malignancies. No history of inflammatory bowel disease. SOCIAL HISTORY: Patient quit smoking in 1998 after a 66-[id number]-[id number] history of smoking. She admits to smoking marijuana approximately once every 3-4 days. She last used marijuana 5 to 6 days ago. Denies a history of alcohol abuse. REVIEW OF SYSTEMS: A 12-point review of systems was obtained and was as per History of Present Illness. Other systems were unremarkable. PHYSICAL EXAMINATION: VITAL SIGNS: Blood pressure 102/70, pulse 72, temperature 98 degrees Fahrenheit, respiratory rate 18. Saturations 96% on room air. NEUROLOGIC: Alert and oriented x3. In no acute distress. Alert and oriented x3. HEENT: Head is normocephalic, atraumatic. EYES: Anicteric sclerae. Pupils are equal and reactive to light and accommodation. Extraocular muscles are intact. Oropharynx is clear with no edema, erythema or exudates. NECK: Supple. No carotid bruits, palpable lymphadenopathy. CHEST: Clear to auscultation bilaterally. Resonant to percussion. CARDIOVASCULAR: Regular rate and rhythm. No murmur, rub, gallop, present. No S3, S4. ABDOMEN: Flat. Positive bowel sounds. Soft and nondistended. Mildly tender over the left upper quadrant. No guarding or rebound or palpable visceromegaly. EXTREMITIES: No clubbing, cyanosis or edema. PERTINENT LABORATORY DATA: CBC was unremarkable. Basic metabolic panel was notable for potassium of 3.0. Magnesium and phosphorus were within normal limits. Lipase 18. LFTs within normal limits. IMPRESSION: 1. Nausea, vomiting and dysphagia. Differential diagnosis includes gastritis, esophagitis, esophageal strictures, rings or webs, and a narrow GE junction post Az fundoplication. Esophageal dysmotility would seem less likely at this point in time given the essentially unremarkable study she had performed June 20, 2009. 2. Probable gastroparesis. This is on the basis of an abnormal gastric emptying study which patient had performed June 20, 2009. The T-1/2 gastric emptying time was estimated to be 227 minutes. This could be explaining patient's nausea and vomiting but certainly not her dysphagia. 3. Gastroesophageal reflux disease - status post Az fundoplication times 2 earlier this year. 4. History of pancreatitis - unclear etiology, status post pancreatic duct stenting in 2005. RECOMMENDATIONS: We will proceed with an upper endoscopy today for further evaluation of patient's symptoms. We will also recommend obtaining a repeat gastric emptying scan. Further recommendations will follow after endoscopy findings are made available. Thank you for the opportunity to assist in the care of your patient. We will continue to follow her along with you. Cordell Armstrong MD Dictated By: Stan Whyte MD cc: NSIONAL INTEGRATION ENGINEER documented in this encounter Miscellaneous Notes * Operative Note - Pedrito Arias MD - 11/13/2013 6:57 AM DIMENSIONAL INTEGRATION ENGINEER REPORT Name: BARBRAA MORGAN MRN/Unit #: [id number] Attending Physician: Jim RUIZ Date of : 1965 DATE OF PROCEDURE: PROCEDURE PERFORMED: EGD (esophagogastroduodenoscopy) with biopsy and esophageal dilatation. PHYSICIAN: Pedrito Arias MD. HISTORY: This is a 44-year-old lady who underwent revision of a fundoplication in June due to the presence of a paraesophageal hernia. She has had difficulty with persistent dysphagia despite what was felt to be a satisfactory operation and continues to have weight loss and dysphagia for solids and liquids. EGD is indicated to assess the fundoplication and rule out strictures and other obstructing lesions. We have also been asked to obtain small bowel biopsies as well as assessment for Helicobacter pylori. Prior to the procedure, the patient was alert and oriented with stable vital signs. MEDICATIONS ADMINISTERED: Demerol 50 mg IV, Versed 6 mg IV, Valium 5 mg IV. DESCRIPTION OF PROCEDURE: The patient was placed in the left lateral decubitus position and sedated. The CareXtend EG-530 gastroscope was advanced under direct vision. The hypopharynx and vocal cords were unremarkable. The esophageal mucosa was completely normal throughout. The gastroesophageal junction was distinct, uninflamed and located at the diaphragmatic hiatus. There was no evidence of any hiatal hernia or any distal esophageal abnormality. The lower sphincter region readily permitted passage of the endoscope and there was absolutely no suggestion of achalasia or any other obstructive process. The scope entered the stomach easily. Stomach was inspected, including end-on and retroflexed views. The fundoplication nipple was intact in the cardia, but really had a quite normal appearance. I did not see anything that would explain her symptomatology. A biopsy was obtained in the antrum for PyloriTek test. The pyloric channel was patent. The duodenal bulb, second and third portions of the duodenum were all completely normal. Villi were well demonstrated visually and normal-appearing, and 3 biopsies were taken in the third portion of the duodenum to rule out sprue. The scope was withdrawn and air was decompressed. A 54 [place] Lopez dilator was passed and again encountered no resistance going through the esophagus or through the area of the lower sphincter and fundoplication. The procedure was terminated. She tolerated this well without complication. DIAGNOSIS: This is an essentially normal-appearing EGD (esophagogastroduodenoscopy) with no evidence of esophagitis, stricture, mass, obstruction, hiatal hernia, or any abnormality to the fundoplication. The stomach and duodenum are otherwise normal. Biopsies taken as above. Empiric dilation accomplished as above. PLAN: Await results of the biopsies and dilation, though I wonder whether there may be some psychological issues that are hampering her recovery. Pedrito Arias MD Dictated By: cc: Nancy Stahl DO NSIONAL INTEGRATION ENGINEER documented in this encounter Plan of Treatment Not on filedocumented as of this encounter Procedures Comments Procedure Name Priority Date/Time Associated Diag nosis GLUCOSE POINT OF CARE Routine 08/14/2009 7:25 AM DIMENSIONAL INTEGRATION ENGINEER PHOSPHORUS Routine 08/14/2009 3:08 AM DIMENSIONAL INTEGRATION ENGINEER BASIC METABOLIC PANEL Routine 08/14/2009 3:08 AM DIMENSIONAL INTEGRATION ENGINEER GLUCOSE POINT OF CARE Routine 08/14/2009 12:08 AM DIMENSIONAL INTEGRATION ENGINEER GLUCOSE POINT OF CARE Routine 08/13/2009 3:54 PM DIMENSIONAL INTEGRATION ENGINEER GLUCOSE POINT OF CARE Routine 08/13/2009 7:37 AM DIMENSIONAL INTEGRATION ENGINEER PHOSPHORUS Routine 08/13/2009 4:59 AM DIMENSIONAL INTEGRATION ENGINEER BASIC METABOLIC PANEL Routine 08/13/2009 4:59 AM DIMENSIONAL INTEGRATION ENGINEER GLUCOSE POINT OF CARE Routine 08/12/2009 3:59 PM DIMENSIONAL INTEGRATION ENGINEER GLUCOSE POINT OF CARE Routine 08/12/2009 8:19 AM DIMENSIONAL INTEGRATION ENGINEER PHOSPHORUS Routine 08/12/2009 5:00 AM DIMENSIONAL INTEGRATION ENGINEER BASIC METABOLIC PANEL Routine 08/12/2009 5:00 AM DIMENSIONAL INTEGRATION ENGINEER XR CHEST POST PICC Routine 08/11/2009 PLACEMENT RPO 15 DEG 1 10:54 AM DIMENSIONAL INTEGRATION ENGINEER VIEW PREALBUMIN Routine 08/11/2009 3:13 AM DIMENSIONAL INTEGRATION ENGINEER PHOSPHORUS Routine 08/11/2009 3:13 AM DIMENSIONAL INTEGRATION ENGINEER MAGNESIUM Routine 08/11/2009 3:13 AM DIMENSIONAL INTEGRATION ENGINEER BASIC METABOLIC PANEL Routine 08/11/2009 3:13 AM DIMENSIONAL INTEGRATION ENGINEER POTASSIUM Routine 08/10/2009 7:19 PM DIMENSIONAL INTEGRATION ENGINEER PHOSPHORUS Routine 08/10/2009 2:56 AM DIMENSIONAL INTEGRATION ENGINEER MAGNESIUM Routine 08/10/2009 2:56 AM DIMENSIONAL INTEGRATION ENGINEER BASIC METABOLIC PANEL Routine 08/10/2009 2:56 AM DIMENSIONAL INTEGRATION ENGINEER FL ESOPHAGUS Routine 08/09/2009 1:13 PM DIMENSIONAL INTEGRATION ENGINEER POTASSIUM Routine 08/09/2009 6:30 AM DIMENSIONAL INTEGRATION ENGINEER [facility] Routine 08/08/2009 5:28 PM DIMENSIONAL INTEGRATION ENGINEER APTT Routine 08/08/2009 2:30 PM DIMENSIONAL INTEGRATION ENGINEER PROTHROMBIN TIME/INR Routine 08/08/2009 2:30 PM DIMENSIONAL INTEGRATION ENGINEER XR ABDOMEN SINGLE VIEW AP Routine 08/08/2009 9:12 AM DIMENSIONAL INTEGRATION ENGINEER PREALBUMIN Routine 08/08/2009 4:13 AM DIMENSIONAL INTEGRATION ENGINEER PHOSPHORUS Routine 08/08/2009 4:13 AM DIMENSIONAL INTEGRATION ENGINEER MAGNESIUM Routine 08/08/2009 4:13 AM DIMENSIONAL INTEGRATION ENGINEER LIPASE Routine 08/08/2009 4:13 AM DIMENSIONAL INTEGRATION ENGINEER HEPATIC FUNCTION PANEL Routine 08/08/2009 4:13 AM DIMENSIONAL INTEGRATION ENGINEER COMPLETE BLOOD COUNT Routine 08/08/2009 4:13 AM DIMENSIONAL INTEGRATION ENGINEER BASIC METABOLIC PANEL Routine 08/08/2009 4:13 AM DIMENSIONAL INTEGRATION ENGINEER documented in this encounter Results * Glucose Point of Care (08/14/2009 7:25 AM DIMENSIONAL INTEGRATION ENGINEER) Only the most recent of 6 results within the time period is included. Glucose 96 65 - 100 MG/DL SUNQUEST Specimen Performing Organization Address [facility] one Number [id number] [place] [phone] SUNQUEST * Basic Metabolic Panel (08/14/2009 3:08 AM DIMENSIONAL INTEGRATION ENGINEER) Only the most recent of 6 results within the time period is included. Sodium 139 134 - 144 MEQ/L SUNQUEST Potassium 4.0 3.5 - 5.1 MEQ/L SUNQUEST Chloride 107 101 - 111 MEQ/L SUNQUEST Carbon Dioxide 30 23 - 32 MEQ/L SUNQUEST Anion Gap 2 (L) 3 - 15 SUNQUEST Creatinine 0.8 0.4 - 1.1 MG/DL SUNQUEST Blood Urea 12 8 - 26 MG/DL SUNQUEST Nitrogen Glucose 89 65 - 100 MG/DL SUNQUEST Calcium 8.2 (L) 8.8 - 10.5 MG/DL SUNQUEST Specimen Performing Organization Address [facility] one Number [id number] [phone] SUNQUEST * Phosphorus (08/14/2009 3:08 AM DIMENSIONAL INTEGRATION ENGINEER) Only the most recent of 6 results within the time period is included. Phosphorus 4.4 2.5 - 4.5 MG/DL SUNQUEST Specimen Performing Organization Address [facility] Number [id number] [phone] SUNQUEST * XR Chest post PICC placement RPO 15 deg 1 view (08/11/2009 10:54 AM DIMENSIONAL INTEGRATION ENGINEER) Specimen Narrative Performed At [facility] Patient: BARBARA MORGAN Phone #: [facility] Rec#: [id number] Sex: F : 1965 Latricia#: [id number] Location: [place] [address] Check-in#: [id number] Procedure Requested: [id number] DX CHEST POS T PICC RPO 15 DEG 1V Reason For Exam: LINE PLACEMENT Exam Ordered: 08/11/2009 104 6 Exam Date/Time: 08/11/2009 1102 Check-in Date/Time: 08/11/2009 1047 AttendinJim RASCON Requestin Jim RUIZ Referrin IMTIAZ REFERRING Primary Care: NANCY STAHL "" These images and this report have been reviewed and edited by the Staff Radiologist. DX CHEST POST PICC RPO 15 DEG 1V INDICATION: LINE PLACEMENT. COMPARISON STUDY: 12 July FINDINGS: Stable right central line. Le ft PICC with tip at SVC/atrial junction Lungs: Lungs well expanded. No consolid ation. The tracheobronchial tree and hilar structures are normal. Pleura: No pleural effusion or pneumoth orax. Heart and Mediastinum: The cardiomedias tinal silhouette is normal. The great vessels of the thorax are normal. Bones: The visualized skeletal structur es are within normal limits. IMPRESSION: 1. Left PICC as described. Signed (Authenticated, Released) Date-T abdias: 08/11/2009 1113 Prop Making Supervisor- FABIAN MUNIZ M.D., Radiologist Dictated By- FABIAN MUNIZ M.D., Radio logist Staff Physician- FABIAN MUNIZ M.D., R adiologist Authenticated By- FABIAN MUNIZ M.D., Radiologist Procedure Note Interface, Rad Conversion - 11/14/2013 3:35 AM DIMENSIONAL INTEGRATION ENGINEER REPORT Patient: BARBARA MORGAN Phone #: Med Rec#: [id number] Sex: F : 1965 Latricia#: [id number] Location: [facility] [address] 01 Check-in#: [id number] Procedure Requested: [id number] DX CHEST POST PICC RPO 15 DEG 1V Reason For Exam: LINE PLACEMENT Exam Ordered: 08/11/2009 1046 Exam Date/Time: 08/11/2009 1102 Check-in Date/Time: 08/11/2009 1047 AttendinJim RASCON Requestin Jim RUIZ Referrin NO, REFERRING DR Primary Care: NANCY STAHL "" These images and this report have been reviewed and edited by the Staff Radiologist. DX CHEST POST PICC RPO 15 DEG 1V INDICATION: LINE PLACEMENT. COMPARISON STUDY: 12 July FINDINGS: Stable right central line. Left PICC with tip at SVC/atrial junction Lungs: Lungs well expanded. No consolidation. The tracheobronchial tree and hilar structures are normal. Pleura: No pleural effusion or pneumothorax. Heart and Mediastinum: The cardiomediastinal silhouette is normal. The great vessels of the thorax are normal. Bones: The visualized skeletal structures are within normal limits. IMPRESSION: 1. Left PICC as described. Signed (Authenticated, Released) Date-Time: 08/11/2009 1113 Prop Making Supervisor- FABIAN MUNIZ M.D., Radiologist Dictated By- FABIAN MUNIZ M.D., Radiologist Staff Physician- FABIAN MUNIZ M.D., Radiologist Authenticated By- FABIAN MUNIZ M.D., Radiologist Performing Organization Address [facility] one Number INOCENCIO * Magnesium (08/11/2009 3:13 AM DIMENSIONAL INTEGRATION ENGINEER) Only the most recent of 3 results within the time period is included. Magnesium 2.1 (H) 1.4 - 2.0 MEQ/L SUNQUEST Specimen Performing Organization Address [facility] one Number [facility]RL [address] [place] [phone] SUNQUEST * Prealbumin (08/11/2009 3:13 AM DIMENSIONAL INTEGRATION ENGINEER) Only the most recent of 2 results within the time period is included. Prealbumin 19.7 17.0 - 39.0 MG/DL SUNQUEST Specimen Performing Organization Address [facility] one Number [facility]RL [address] [place] [phone] SUNQUEST * Potassium (08/10/2009 7:19 PM DIMENSIONAL INTEGRATION ENGINEER) Only the most recent of 2 results within the time period is included. Potassium 4.0 3.5 - 5.1 MEQ/L SUNQUEST Specimen Performing Organization Address City/State/Zipcode Ph one Number SLRL [address] [place], [place] [address] SUNQUEST * FL Esophagus (08/09/2009 1:13 PM DIMENSIONAL INTEGRATION ENGINEER) Specimen Narrative Performed At REPORT INOCENCIO Patient: BARBARA MORGAN Phone #: [facility] Rec#: [id number] Sex: F : 1965 Latricia#: [id number] Location: [place] [address] Check-in#: [id number] Procedure Requested: [id number] DX ESOPHAGUS Reason For Exam: ABDOMINAL PAIN Exam Ordered: 08/09/2009 082 2 Exam Date/Time: 08/09/2009 1350 Check-in Date/Time: 08/09/2009 0824 Attendin Jim RUIZ Requestin Jim RUIZ Referrin IMTIAZ, REFERRING Primary Care: NANCY STAHL "" These images and this report have been reviewed and edited by the Staff Radiologist. DX ESOPHAGUS DATE: Aug 09, 2009 1:50:00 PM INDICATION: Nausea and vomiting, histor y of fundoplication and revision in Jan, 2009 and June,, respect ively. Prior esophagram from outside facility was negative. Technique: Single-contrast fluoroscopic study was performed of the esophagus. Findings: Minimal dyssynchronous esopha geal motility as demonstrated by tertiary contractions in the lower thir d esophagus. There is no evidence of mass or stricture. There is expected mild narrowing in the region of the known fundoplication which demonstr ated appropriate transition without evidence of obstruction. No zaida dence of extravasation or abnormal outpouching. No reflux noted. Impression: 1. No evidence of esophageal mass or st ricture is identified. 2. Expected mild narrowing in the regio n of the known fundoplication with appropriate motility. 3. Minimal dyssynchronous esophageal mo tility. Signed (Authenticated, Released) Date-T abdias: 08/09/2009 9335 Prop Making Supervisor- ROSE HUYNH M.D., Staff Radiologist Dictated By- SAE OROZCO M.D., Reside nt Staff Physician- ROSE HUYNH M.D., Kashif tafalbert Radiologist Authenticated By- ROSE HUYNH M.D., Staff Radiologist Procedure Note Interface, Rad Conversion - 11/14/2013 3:37 AM DIMENSIONAL INTEGRATION ENGINEER REPORT Patient: BARBARA MORGAN Phone #: [facility] Rec#: [id number] Sex: F : 1965 Latricia#: [id number] Location: [place] [address] Check-in#: [id number] Procedure Requested: [id number] DX ESOPHAGUS Reason For Exam: ABDOMINAL PAIN Exam Ordered: 08/09/2009 08 Exam Date/Time: 08/09/2009 1350 Check-in Date/Time: 08/09/200924 Attendin Jim RUIZ Requestin Jim RUIZ Referrin NO, REFERRING DR Primary Care: NANCY STAHL "" These images and this report have been reviewed and edited by the Staff Radiologist. DX ESOPHAGUS DATE: Aug 09, 2009 1:50:00 PM INDICATION: Nausea and vomiting, history of fundoplication and revision in Jan, 2009 and June,, respectively. Prior esophagram from outside facility was negative. Technique: Single-contrast fluoroscopic study was performed of the esophagus. Findings: Minimal dyssynchronous esophageal motility as demonstrated by tertiary contractions in the lower third esophagus. There is no evidence of mass or stricture. There is expected mild narrowing in the region of the known fundoplication which demonstrated appropriate transition without evidence of obstruction. No evidence of extravasation or abnormal outpouching. No reflux noted. Impression: 1. No evidence of esophageal mass or str icture is identified. 2. Expected mild narrowing in the region of the known fundoplication with appropriate motility. 3. Minimal dyssynchronous esophageal mot ility. Signed (Authenticated, Released) Date-Time: 08/09/2009 4339 Prop Making Supervisor- ROSE HUYNH M.D., Staff Radiologist Dictated By- SAE OROZCO M.D., Resident Staff Physician- ROSE HUYNH M.D., Staff Radiologist Authenticated By- ROSE HUYNH M.D., Staff Radiologist Performing Organization Address [facility] Ph one Number MCKESSON * Pathology (08/08/2009 5:28 PM DIMENSIONAL INTEGRATION ENGINEER) Specimen Narrative Performed At REPORT Knowable PATIENT: Kashif MORGAN SEX / : F 1965 (Age: 44) 236 VISIT: [id number] SUBMITTING PHYSICIAN: Pedrito Arias M.D CLIENT: [facility] COLLECTED: 08/08/2009 REPORTED: 9 SURGICAL PATHOLOGY REPORT COPATH SPECIMEN: Small bowel bx's FINAL PATHOLOGIC DIAGNOSIS: Small bowel, biopsy - Duodenal mucosa within normal limits. (See comment). COMMENT: There is no significant villous archite ctural abnormality or increase in number of intraepithelial l ymphocytes. Signed Electronically by: Dutch Briceno M.D. 9 CLINICAL DATA: LUQ pain. GROSS DESCRIPTION: Received in formalin in a properly labe led container are three segments of tipton tissue each measu ring 0.2 cm in greatest dimension. All are submitted entirely in one cassette. [place]: [facility], [address] [place] [address] Performing Laboratory Location: [facility], Dept of Patho logy, [address] [place] [address] 3 END OF REPORT Performing Organization Address [facility] Ph one Number SLRL [address] [place] [address] [facility] * Prothrombin Time/INR (08/08/2009 2:30 PM DIMENSIONAL INTEGRATION ENGINEER) Protime 13.7 11.9 - 14.3 SEC SUNQUEST INR 1.1 SUNQUEST Specimen Performing Organization Address City/[facility] Ph one Number [facility] [address] [place], [place] [address] SUNQUEST * APTT (08/08/2009 2:30 PM DIMENSIONAL INTEGRATION ENGINEER) APTT 25 22 - 34 SEC SUNQUEST Specimen Performing Organization Address City/[facility] Ph one Number [facility]RL [address] [place] [phone] SUNQUEST * XR Abdomen single view AP (08/08/2009 9:12 AM DIMENSIONAL INTEGRATION ENGINEER) Specimen Narrative Performed At REPORT INOCENCIO Patient: BARBARA MORGAN Phone #: [facility] Rec#: [id number] Sex: F : 1965 Latricia#: [id number] Location: [place] [address] 01 Check-in#: [id number] Procedure Requested: [id number] DX ABDOMEN S JOSÉ LUIS VIEW Reason For Exam: NAUSEA/VOMITING Exam Ordered: 08/08/2009 084 1 Exam Date/Time: 08/08/200918 Check-in Date/Time: 08/08/2009 0844 Attendin Jim RUIZ Requestin iJm URIZ Referrin JHONATAN KITCHEN DR Primary Care: NANCY STAHL "" These images and this report have been reviewed and edited by the Staff Radiologist. DX ABDOMEN SINGLE VIEW Aug 08, 2009 9:18:00 AM Reason for exam: NAUSEA/VOMITING Comparison study: July 12, 2009 Findings: Residual oral contrast material is seen within the ascending and transverse colon. A nonobstructive lucrecia l gas pattern is seen. No free intraperitoneal air although sensitivit y is limited on this supine view. Right upper quadrant surgical clips com patible with cholecystectomy. Postoperative changes of total hip repl acement on the left. Impression: Nonobstructive bowel gas pattern. Residual oral contrast material is seen within the ascending and transverse colon. This is likely presen t from previous oral contrast administration on July 12, 2009. Cor relate with patient's history. Signed (Authenticated, Released) Date-T abdias: 08/08/2009 1311 Prop Making Supervisor- SUJEY AGUILAR M.D. , Staff Radiologist Dictated By- OTONIEL GREWAL M.D., Reside nt Staff Physician- SUJEY AGUILAR M.D., Staff Radiologist Authenticated By- SUJEY AGUILAR M.D. , Staff Radiologist Procedure Note Interface, Rad Conversion - 11/14/2013 3:39 AM DIMENSIONAL INTEGRATION ENGINEER REPORT Patient: BARBARA MORGAN Phone #: [facility] Rec#: [id number] Sex: F : 1965 Latricia#: [id number] Location: [facility] [address] 01 Check-in#: [id number] Procedure Requested: [id number] DX ABDOMEN SINGLE VIEW Reason For Exam: NAUSEA/VOMITING Exam Ordered: 08/08/200941 Exam Date/Time: 08/08/2009917 Check-in Date/Time: 08/08/200944 Attendin Jim RUIZ Requestin Jim RUIZ Referrin NO, REFERRING DR Primary Care: NANCY STAHL "" These images and this report have been reviewed and edited by the Staff Radiologist. DX ABDOMEN SINGLE VIEW Aug 08, 2009 9:18:00 AM Reason for exam: NAUSEA/VOMITING Comparison study: July 12, 2009 Findings: Residual oral contrast material is seen within the ascending and transverse colon. A nonobstructive bowel gas pattern is seen. No free intraperitoneal air although sensitivity is limited on this supine view. Right upper quadrant surgical clips compatible with cholecystectomy. Postoperative changes of total hip replacement on the left. Impression: Nonobstructive bowel gas pattern. Residual oral contrast material is seen within the ascending and transverse colon. This is likely present from previous oral contrast administration on July 12, 2009. Correlate with patient's history. Signed (Authenticated, Released) Date-Time: 08/08/2009 1311 Prop Making Supervisor- SUJEY AGUILAR M.D., Staff Radiologist Dictated By- OTONIEL GREWAL M.D., Resident Staff Physician- SUJEY AGUILAR M.D., Staff Radiologist Authenticated By- SUJEY AGUILAR M.D., Staff Radiologist Performing Organization Address [facility] one Number INOCENCIO * Complete Blood Count (08/08/2009 4:13 AM DIMENSIONAL INTEGRATION ENGINEER) WBC 9.1 4.0 - 11.0 TH/UL SUNQUEST RBC 4.31 4.00 - 5.00 MIL/UL SUNQUEST Hemoglobin 12.5 12.0 - 15.0 G/DL SUNQUEST Hematocrit 37 36 - 45 % SUNQUEST MCV 85 80 - 99 FL SUNQUEST MCH 29 27 - 34 PG SUNQUEST MCHC 34 32 - 36 % SUNQUEST RDW 14.5 <14.5 % SUNQUEST Platelet Count 290 140 - 400 TH/UL SUNQUEST MPV 9.3 (L) 9.4 - 12.3 FL SUNQUEST Specimen Performing Organization [facility] one Number [facility]RL [address] [place] [phone] SUNQUEST * Hepatic Function Panel (08/08/2009 4:13 AM DIMENSIONAL INTEGRATION ENGINEER) Albumin 3.3 (L) 3.5 - 5.0 G/DL SUNQUEST Bilirubin 0.1 0.1 - 0.5 MG/DL SUNQUEST Direct Bilirubin Total 0.7 0.3 - 1.4 MG/DL SUNQUEST Alkaline 40 (L) 42 - 128 IU/L SUNQUEST Phosphatase Alanine 8 (L) 14 - 63 IU/L SUNQUEST Aminotransferas e Aspartate 13 (L) 15 - 41 IU/L SUNQUEST Aminotransferas e Protein Total 5.7 (L) 6.0 - 8.0 G/DL SUNQUEST Serum Specimen Performing Organization [facility] one Number [facility]RL [address] [place] [phone] SUNQUEST * Lipase (08/08/2009 4:13 AM DIMENSIONAL INTEGRATION ENGINEER) Lipase 18 18 - 51 U/L SUNQUEST Specimen Performing Organization [facility] one Number [facility]RL [address] [place], [place] [address] SUNQUEST documented in this encounter Visit Diagnoses Diagnosis Nausea with vomiting documented in this encounter
--- OUTSIDE RECORDS SUMMARY | 2020-02-08 04:19 | XMS REPORT | Encounter Summary ---
Author Author [facility] Organization [facility] Address Unknown Phone Unavailable Care Team Providers Care Ditching Machine Operating Engineer Name Role Phone PCP Unavailable Encounter Details Care Team Description [place] [address] [facility] [address] [place], [place] [address] Dysphagia, Unspecified 06/20/2009 [facility] Encounter [address] [place], [place] [id number] Social History Date Tobacco Use Types Packs/Day [...] encounter Miscellaneous Notes * Operative Note - Elijah Arias MD - 11/13/2013 7:22 AM BINDING DYER REPORT Name: BARBARA MORGAN [facility] #: [id number] MRN/Unit #: [id number] Attending Physician: ELIJAH ARIAS Date of : 1965 DATE OF PROCEDURE: 06/20/2009 PROCEDURE PERFORMED: Esophageal motility study. REASON FOR TEST: The patient is a 44-year-old lady who underwent fundoplication in [place], [place], about 4 months ago. She has had persistent dysphagia and it is my understanding that Dr. Ruiz plans revision. He has requested preoperative evaluation of esophageal motility. FINDINGS: Patient was studied with a pneumatic solid-state catheter system passed transnasally. Data was acquired from the lower esophageal sphincter, esophageal body, and upper esophageal sphincter regions. 1. Lower esophageal sphincter. The lower esophageal sphincter is located at 44 cm from the nares and demonstrated a resting pressure of 40 mmHg which falls within the normal range of 10 to 45 mm. There was complete relaxation upon swallowing. However, the duration of relaxation was rather brief. The esophageal body was studied with 5 wet swallows in the lower esophagus and 4 wet swallows in the upper esophagus. All of the contractions were peristaltic and of grossly normal waveform although one wet swallow did demonstrated a very slightly biphasic wave though certainly not out of the range of normal. The amplitude and duration of contractions was normal ranging from about 50 to 80 mmHg and contraction duration of about 2.5 to 3 seconds. 2. In the upper esophageal body contraction amplitude ranged from about 50 to 110 mmHg and duration varied between 2 and 4 seconds. 3. Upper esophageal sphincter is located at 20 cm from the nares, demonstrated normal resting pressure of 30 mmHg, peak pressure of 106 mmHg, and a residual pressure that was slightly elevated at 14 mmHg upon relaxation. However, this finding does not suggest any specific abnormality of the upper sphincter. IMPRESSION: Although the number of wet swallows to evaluate peristalsis was limited to 5, the peristalsis, waveform, amplitude, and velocity of contraction in the esophagus is all normal. The lower esophageal sphincter region has appropriate resting pressure and relaxation though the duration of relaxation may be somewhat short and correspond with her symptoms of dysphagia. The upper esophageal sphincter appears to function normally. This study does not demonstrate any evidence of hiatal hernia. PLAN: I see no contraindication to proceeding with revisional surgery which may include construction of a slightly more loose wrap. Elijah Arias MD Dictated By: cc: Lobo Ruiz MD ING DYER documented in this encounter Plan of Treatment Not on filedocumented as of this encounter Visit Diagnoses Diagnosis Dysphagia, unspecified(787.20) Dysphagia, unspecified documented in this encounter
--- OUTSIDE RECORDS SUMMARY | 2020-02-08 04:19 | XMS REPORT | Encounter Summary ---
Author Author [facility] Organization [facility] Address Unknown Phone Unavailable Care Team Providers Care Brick Machine Operator Name Role Phone PCP Unavailable Encounter Details Care Team Description Date Type Department Jim Ruiz MD [address] [place] [address] [phone] Other Symptoms Involving Digestive Syste m 06/21/2009 [facility] [address] [place] [address] Social History Date Tobacco Use Types Packs/Day [...] Diag nosis FL UGI WO KUB Routine 06/21/2009 9:06 AM CDT documented in this encounter Results * FL UGI wo KUB (06/21/2009 9:06 AM CDT) Specimen Narrative Performed At REPORT INOCENCIO Patient: BARBARA MORGAN [facility] Rec#: [id number] Sex: F : 1965 Latricia#: [id number] Location: Check-in#: [id number] Procedure Requested: [id number] DX UGI WO KU B Reason For Exam: STATUS POST LAP [place] Exam Ordered: 06/21/2009 084 5 Exam Date/Time: 06/21/200936 Check-in Date/Time: 06/21/2009 0845 Attendin Jim RUIZ Requestin Jim RUIZ Referrin IMTIAZ, REFERRING DR Primary Care: IMTIAZ, FAMILY DX UGI WO KUB Jun 21, 2009 9:36:00 AM Reason for exam: STATUS POST LAP Niss en FINDINGS: Following the ingestion of barium carbon dioxide producing crystals the esophagus is well demonstr ated. There was mild to lie 8 and esophageal emptying on upright. Stomach appears unremarkable. There is no evidence of gastric ulceration. Ther e is no gastroesophageal reflux. The duodenal bulb fills promptly. It is not deformed. The sweep is not altered. The stomach empties normally. Impression: Mild delay in complete empt hugh of the esophagus when upright. Signed (Authenticated, Released) Date-T abdias: 06/21/2009 1134 Trade Promotion Analyst- JAMIE FERNANDEZ M.D. , Staff Radiologist Dictated By- JAMIE FERNANDEZ M.D., Sta ff Radiologist Staff Physician- JAMIE FERNANDEZ M.D., Staff Radiologist Authenticated By- JAMEI FERNANDEZ M.D. , Staff Radiologist Procedure Note Interface, Rad Conversion - 11/14/2013 4:52 AM WHITEWATER RAFTING GUIDE REPORT Patient: BARBARA MORGAN [facility] Rec#: [id number] Sex: F : 1965 Latricia#: [id number] Location: Check-in#: [id number] Procedure Requested: [id number] DX UGI WO KUB Reason For Exam: STATUS POST LAP [place] Exam Ordered: 06/21/200945 Exam Date/Time: 06/21/2009935 Check-in Date/Time: 06/21/2009844 Attendin Jim RUIZ Requestin Jim RUIZ Referrin IMTIAZ, REFERRING DR Primary Care: IMTIAZ, FAMILY DR JM LANTIGUAI WO KATHARINEB Jun 21, 2009 9:36:00 AM Reason for exam: STATUS POST LAP [place] FINDINGS: Following the ingestion of barium carbon dioxide producing crystals the esophagus is well demonstrated. There was mild to lie 8 and esophageal emptying on upright. Stomach appears unremarkable. There is no evidence of gastric ulceration. There is no gastroesophageal reflux. The duodenal bulb fills promptly. It is not deformed. The sweep is not altered. The stomach empties normally. Impression: Mild delay in complete emptying of the esophagus when upright. Signed (Authenticated, Released) Date-Time: 06/21/2009 1134 Trade Promotion Analyst- JAMIE FERNANDEZ M.D., Staff Radiologist Dictated By- JAMIE FERNANDEZ M.D., Staff Radiologist Staff Physician- JAMIE FERNANDEZ M.D., Staff Radiologist Authenticated By- JAMIE FERNANDEZ M.D., Staff Radiologist Performing Organization Address City/State/Zipcode Ph one Number INOCENCIO documented in this encounter Visit Diagnoses Diagnosis Other symptoms involving digestive syst em(787.99) Other symptoms involving digestive syst em documented in this encounter
--- OUTSIDE RECORDS SUMMARY | 2020-02-08 04:19 | XMS REPORT | Encounter Summary ---
Author Author [facility] Organization [facility] Address Unknown Phone Unavailable Care Team Providers Care Licensed Embalmer Name Role Phone PCP Unavailable Encounter Details Care Team Description Date Type Department Wilfredo Borden MD [address] [place], [place] [id number] 04/04/2009 [facility] [employer] [address] [place] [address] Social History Date Tobacco Use Types Packs/Day [...] Name Priority Date/Time Associated Diag nosis FL ESOPHAGUS Routine 04/04/2009 11:00 AM CDT documented in this encounter Results * FL Esophagus (04/04/2009 11:00 AM CDT) Specimen Narrative Performed At JE INOCENCIO Patient: BARBARA MORGAN [facility] Rec#: [id number] Sex: F : 1965 Latricia#: [id number] Location: [facility] Check-in#: [id number] Procedure Requested: [id number] DX ESOPHAGUS Reason For Exam: NAUSEA S/P NISSE N Exam Ordered: 04/04/2009 105 5 Exam Date/Time: 04/04/2009 1130 Check-in Date/Time: 04/04/2009 1055 Attendin WILFREDO BORDEN Requestin WILFREDO BORDEN Referring: , Primary Care: FAMILY MELISSA KITCHEN These images and this report have been reviewed and edited by the Staff Radiologist. Examination: DX ESOPHAGUS Comparison: None History: DYSPHAGIA Technique: A preliminary paper gluing operator film of the chest and lateral neck demonstrate no acute abnormality. Following administration of effervescen t crystals and oral barium multiple sequential spot fluoroscopic i mages were obtained. Findings: A normal swallowing reflex is present. Normal distensibility and peristalsis of the entire esophagus is demonstrated. No hiatal hernia is seen. Evaluation of the cervical esophagus is normal. Impression: Unremarkable esophagram. Signed (Authenticated, Released) Date-T abdias: 04/04/2009 1711 Records Management Specialist- CECY Wilder, Staff Radiologist Dictated By- CECY MONTES M.D., Staff Radiologist Staff Physician- CECY Hernandez, Staff Radiologist Authenticated By- CECY Wilder, Staff Radiologist Procedure Note Interface, Rad Conversion - 11/14/2013 6:36 AM ESTHETICIAN MAKEUP ARTIST REPORT Patient: BARBARA MORGAN [facility] Rec#: [id number] Sex: F : 1965 Latricia#: [id number] Location: [facility] Check-in#: [id number] Procedure Requested: [id number] DX ESOPHAGUS Reason For Exam: NAUSEA S/P JOEY Exam Ordered: 04/04/2009 1055 Exam Date/Time: 04/04/2009 1130 Check-in Date/Time: 04/04/2009 1055 Attendin WILFREDO BORDEN Requestin WILFREDO BORDEN Referring: , Primary Care: FAMILY MELISSA KITCHEN These images and this report have been reviewed and edited by the Staff Radiologist. Examination: DX ESOPHAGUS Comparison: None History: DYSPHAGIA Technique: A preliminary paper gluing operator film of the chest and lateral neck demonstrate no acute abnormality. Following administration of effervescent crystals and oral barium multiple sequential spot fluoroscopic images were obtained. Findings: A normal swallowing reflex is present. Normal distensibility and peristalsis of the entire esophagus is demonstrated. No hiatal hernia is seen. Evaluation of the cervical esophagus is normal. Impression: Unremarkable esophagram. Signed (Authenticated, Released) Date-Time: 04/04/2009 8162 Records Management Specialist- CECY MONTES M.D., Staff Radiologist Dictated By- CECY MONTES M.D., Staff Radiologist Staff Physician- CECY MONTES M.D., Staff Radiologist Authenticated By- CECY MONTES M.D., Staff Radiologist Performing Organization Address City/State/Zipcode Ph one Number JAZMYNERAZ documented in this encounter Visit Diagnoses Not on filedocumented in this encounter
--- OUTSIDE RECORDS SUMMARY | 2020-02-08 04:19 | XMS REPORT | Encounter Summary ---
Author Author [facility] Organization [facility] Address Unknown Phone Unavailable Care Team Providers Care Solderer Assembly Repair Name Role Phone PCP Unavailable Encounter Details Care Team Description Date Type Department Jim Ruiz MD [address] [place] [address] [phone] Dyspepsia and Other Specified Disorders of Function of Stomach 06/20/2009 [facility] [address] [place] [address] Social History Date Tobacco Use Types Packs/Day [...] Diag nosis NM GASTRIC EMPTYING STUDY Routine 06/20/2009 11:00 AM CDT documented in this encounter Results * NM Gastric Emptying study (06/20/2009 11:00 AM CDT) Specimen Narrative Performed At REPORT INOCENCIO Patient: BARBARA MORGAN [facility] Rec#: [id number] Sex: F : 1965 Latricia#: [id number] Location: Check-in#: [id number] Procedure Requested: [id number] NM GASTRIC E MPTYING STUDY Reason For Exam: POST LAP JOEY Exam Ordered: 06/20/2009 103 8 Exam Date/Time: 06/20/2009 1230 Check-in Date/Time: 06/20/2009 1040 Attendin Jim RUIZ Requestin Jim RUIZ Referrin NO, REFERRING DR Primary Care: [id number] TREY STAHL History: Abdominal pain. Weight loss. Procedure: Following the oral administr ation of one mCi of Tc 99 M-sulfur colloid mixed in an egg, image s of the upper abdomen are obtained. Findings: Radiotracer activity is seen in the stomach. Over time, there is decreased radiotracer activity seen in the stomach. The computer estimated T-1/2 gastric em ptying is 227 minutes. Impression: Delayed gastric emptying Signed (Authenticated, Released) Date-T abdias: 06/20/2009 1327 Police Patrol Lieutenant- HAL FLAHERTY M.D. , Staff Radiologist Dictated By- HAL FLAHERTY M.D., Sta ff Radiologist Staff Physician- HAL FLAHERTY M.D., Staff Radiologist Authenticated By- HAL FLAHERTY M.D. , Staff Radiologist Procedure Note Interface, Rad Conversion - 11/14/2013 4:54 AM MEDICAL SOCIAL CONSULTANT REPORT Patient: BARBARA MORGAN [facility] Rec#: [id number] Sex: F : 1965 [facility]#: [id number] Location: Check-in#: [id number] Procedure Requested: [id number] NM GASTRIC EMPTYING STUDY Reason For Exam: POST LAP JOEY Exam Ordered: 06/20/2009 1038 Exam Date/Time: 06/20/2009 1230 Check-in Date/Time: 06/20/2009 1040 Attendin Jim RUIZ Requestin Jim RUZI Referrin NO, REFERRING Primary Care: [id number] TREY STAHL History: Abdominal pain. Weight loss. Procedure: Following the oral administration of one mCi of Tc 99 M-sulfur colloid mixed in an egg, images of the upper abdomen are obtained. Findings: Radiotracer activity is seen in the stomach. Over time, there is decreased radiotracer activity seen in the stomach. The computer estimated T-1/2 gastric emptying is 227 minutes. Impression: Delayed gastric emptying Signed (Authenticated, Released) Date-Time: 06/20/2009 1327 Police Patrol Lieutenant- HAL FLAHERTY M.D., Staff Radiologist Dictated By- HAL FLAHERTY M.D., Staff Radiologist Staff Physician- HAL FLAHERTY M.D., Staff Radiologist Authenticated By- HAL FLAHERTY M.D., Staff Radiologist Performing Organization Address City/State/Zipcome Ph one Number JAZMYNERAZ documented in this encounter Visit Diagnoses Diagnosis Dyspepsia and other specified disorders of function of stomach documented in this encounter
--- OUTSIDE RECORDS SUMMARY | 2020-02-08 04:19 | XMS REPORT | Clinical Summary ---
Author Author [facility] Organization [facility] Address Unknown Phone Unavailable Care Team Providers Care Main Line Assembler Name Role Phone Mili Owens MD Unavailable Julia Odell MD Unavailable Oren Cornejo MD Unavailable Unavailable Raffy Stafford MD Unavailable Unavailable Dilip Guzman MD PCP Anat Brian RN Unavailable Unavailable Pradeep Noyola DO Unavailable Vandana Cervantes RN Unavailable Unavailable Viv Cancino APRN-LUBNA Unavailable Unavailable Source Comments Some departments are not documenting in the electronic medical record. If you d o not see the information that you expected, contact Release of Information in [facility] [employer] Information Management department at [phone] for further assistan ce in locating additional records.[facility] Allergies Comments Active Allergy Reactions Severity Noted Date Was told not to take NSAID Aspirin SEE COMMENTS 04/10/2008 Codeine NAUSEA AND 04/10/2008 VOMITING IV causes burning in veins Levofloxacin SEE COMMENTS 04/10/2008 Muscles tighten, trouble speaking Metoclopramide SEE COMMENTS 04/10/2008 Medications End Date Status Medication Sig Dispensed Refills Start Date Active acyclovir (ZOVIRAX) 5 % Apply to 0 topical ointment affected area every 3 hours. Active ALPRAZolam (XANAX) 1 mg Take 1 Tab by 60 Tab 2 tablet mouth four 4 times daily as needed. Active chlorproMAZINE Take 1 Tab by 30 Tab 0 (THORAZINE) 25 mg tablet mouth as 4 Needed. For Hiccups Active OLANZapine (ZYPREXA) 5 mg Take 1 Tab by 30 Tab 0 tablet mouth at 4 bedtime daily. Active fludrocortisone Take 1 Tab by 30 Tab 0 07/15/20 1 (FLORINEF) 0.1 mg tablet mouth daily. 4 Active zolpidem (AMBIEN) 10 mg Take 1 Tab by 30 Tab 1 tablet mouth at 4 bedtime as needed. Active acetaminophen SR(+) Take 650 mg 0 (TYLENOL) 650 mg tablet by mouth every 6 hours as needed. Active traZODone (DESYREL) 150 Take 150 mg 0 mg tablet by mouth at bedtime daily. Active MAGNESIUM HYDROXIDE (MILK Take 1 Tab by 0 OF MAGNESIA PO) mouth three times daily. Active ondansetron (ZOFRAN ODT) Take 1 Tab by 20 Tab 0 4 mg rapid dissolve mouth every 6 4 tablet hours as needed for Nausea. Active loperamide (IMODIUM) 2 mg Take 1 Cap by 30 Cap 0 capsule mouth as 4 Needed. Active Problems Problem Noted Date N&V (nausea and vomiting) 07/27/2014 SIRS (systemic inflammatory response syndrome) 07/27 Diarrhea 07/27/2014 GERD (gastroesophageal reflux disease) 07/27/2014 Epigastric abdominal pain 07/27/2014 Adrenal insufficiency 07/27/2014 Difficulty in swallowing 11/02/2013 Dysphagia 10/06/2013 Achalasia 10/06/2013 Hypertension 05/02/2008 Acute renal failure 05/02/2008 Urosepsis 05/02/2008 Mental status change 05/02/2008 Resolved Problems Problem Noted Date Resolved Date Urosepsis 05/02/2008 05/02/2008 Altered mental status 05/02/2008 05/02/2008 Acute renal failure 05/02/2008 05/02/2008 Methicillin susceptible pneumonia due to Staphylococcus aur eus 05/02/2008 05/02/2008 Methicillin susceptible pneumonia due to Staphylococcus aur eus 05/02/2008 05/02/2008 Immunizations Name Administration Dates Next Due Flu Vaccine Quadrivalent 07/14/2014 =>3 Yo (Preservative Free) Family History Medical History Relation Name Comments Cancer Father skin Heart Disease Father Other Father gerd Stroke Father Hypertension Mother Migraines Mother Cancer-Lung Other grandparent Relation Name Status Comments Father Alive Mother Alive Other Social History Date Tobacco Use Types Packs/Day Years Used Quit: 04/11/1994 Former Smoker Cigarettes 0.5 10 Smokeless Tobacco: Never Used Drinks/Week oz/Week Comments Alcohol Use occassional glass of wine Yes Sex Assigned at Date Recorded Not on file Industry Job Start Date Occupation Not on file Not on file Not on file Travel End Travel History Travel Start No recent travel history available. Last Filed Vital Signs Reading Time Taken Comments Vital Sign 90/70 03/08/2015 1:52 PM CDT Blood Pressure 96 03/08/2015 1:52 PM CDT Pulse 37.2 C (99 F) 03/08/2015 1:52 PM CDT Temperature 18 03/08/2015 1:52 PM CDT Respiratory Rate 97% 07/29/2014 12:18 PM TEACHERS ASSISTANT Oxygen Saturation - - Inhaled Oxygen Concentration 58.3 kg (128 lb 9.6 oz) 03/08/2015 1:52 PM CDT Weight 165.1 cm (5' 5") 03/08/2015 1:52 PM CDT Height 21.4 03/08/2015 1:52 PM CDT Body Mass Index Plan of Treatment Health Maintenance Due Date Last Done Comments HIV SCREENING 1978 DTAP/TDAP VACCINES (1 - 1981 Tdap) HEPATITIS C SCREENING 1981 PHYSICAL (COMPREHENSIVE) 1981 EXAM CERVICAL CANCER SCREENING 1984 BREAST CANCER SCREENING 2003 COLORECTAL CANCER 2013 SCREENING SHINGLES RECOMBINANT 2013 VACCINE (1 of 2) INFLUENZA VACCINE 06/15/2020 07/14/2014 Results Not on filefrom Last 3 Months Additional Health Concerns Resolved Time Infection Noted Time MRSA 04/18/2008 10:38 AM CDT Insurance Type Payer Benefit Subscriber ID Effective Phone Address Plan / Dates [place] 2013- [place] Present [address] (Home) [place] [id number] Advance Directives 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 11/03/2013 4:52 PM Full Code 11/02/2013 11:19 AM Provider has discussed Code Status Yes w/Patient or Family? 02/04/2012 5:38 PM Full Code 01/31/2012 5:48 PM Provider has discussed Code Status No, discussion no t w/Patient or Family? necessary based on Dx
--- OUTSIDE RECORDS SUMMARY | 2020-02-08 04:19 | XMS REPORT | Encounter Summary ---
Author Author [facility] Organization [facility] Address Unknown Phone Unavailable Care Team Providers Care Policy Writer Sales Name Role Phone PCP Unavailable Encounter Details Care Team Description Date Type Department Mango Hamilton MD [address] [facility] Emergency Department [place], [place] [id number] Other and Unspecified Noninfectious Kleber roenteritis and Colitis 01/31/2009 [facility] Encounter [address] [place] [address] Social History Date Tobacco Use Types Packs/Day [...] Name Priority Date/Time Associated Diag nosis XR ABDOMEN MIN 2 VIEWS Routine 02/01/2009 12:29 AM CDT DIFFERENTIAL Routine 01/31/2009 11:39 PM CDT COMPREHENSIVE METABOLIC Routine 01/31/2009 PANEL 11:39 PM CDT CBC AND DIFF (MANUAL DIFF Routine 01/31/2009 IF NECESSARY) 11:39 PM CDT documented in this encounter Results * XR Abdomen min 2 views (02/01/2009 12:29 AM CDT) Specimen Narrative Performed At [facility] Patient: BARBARA MORENO [facility] Rec#: [id number] Sex: F : 1965 Latricia#: [id number] Location: Check-in#: [id number] Procedure Requested: [id number] DX ABDOMEN M IN 2 VIEWS Reason For Exam: ABDOMINAL PAIN Exam Ordered: 02/01/2009 001 4 Exam Date/Time: 02/01/2009 0035 Check-in Date/Time: 02/01/2009 0014 Attendin MANGO HAMILTON Requestin MANGO HAMILTON Referrin IMTIAZ, REFERRING Primary Care: IMTIAZ, FAMILY These images and this report have been reviewed and edited by the Staff Radiologist. DX ABDOMEN MIN 2 VIEWS Indication: ABDOMINAL PAIN Exam Date: February 01, 2009 12:35:00 AM The lung bases appear clear. Intestinal bowel gas pattern appears normal. There is no obvious bowel obstr uction or acute process. Surgical clips are noted right upper qu adrant with minimal gas collections in this region which may re flect normal colonic bowel gas. If there is concern of acute intra-abdo jose or pelvic process, followup CT abdomen and pelvis maybe useful Signed (Authenticated, Released) Date-T abdias: 02/01/2009 0831 Rim Technician- FORTINO HENSON M.D., Staff Radiologist Dictated By- FORTINO HENSON M.D., Staf f Radiologist Staff Physician- FORTINO HENSON M.D., Staff Radiologist Authenticated By- FORTINO HENSON M.D., Staff Radiologist Procedure Note Interface, Rad Conversion - 11/14/2013 8:01 AM DIRECTOR GEOPHYSICAL LABORATORY REPORT Patient: BARBARA MORENO [facility] Rec#: [id number] Sex: F : 1965 Latricia#: [id number] Location: Check-in#: [id number] Procedure Requested: [id number] DX ABDOMEN MIN 2 VIEWS Reason For Exam: ABDOMINAL PAIN Exam Ordered: 02/01/2009 0014 Exam Date/Time: 02/01/2009 0035 Check-in Date/Time: 02/01/2009 0014 Attendin MANGO HAMILTON Requestin MANGO HAMILTON Referrin IMTIAZ, REFERRING Primary Care: IMTIAZ, FAMILY These images and this report have been reviewed and edited by the Staff Radiologist. DX ABDOMEN MIN 2 VIEWS Indication: ABDOMINAL PAIN Exam Date: February 01, 2009 12:35:00 AM The lung bases appear clear. Intestinal bowel gas pattern appears normal. There is no obvious bowel obstruction or acute process. Surgical clips are noted right upper quadrant with minimal gas collections in this region which may reflect normal colonic bowel gas. If there is concern of acute intra-abdominal or pelvic process, followup CT abdomen and pelvis maybe useful Signed (Authenticated, Released) Date-Time: 02/01/2009 0831 Rim Technician- FORTINO HENSON M.D., Staff Radiologist Dictated ByDionne HENSON M.D., Staff Radiologist Staff Physician- FORTINO HENSON M.D., Staff Radiologist Authenticated ByDionne HENSON M.D., Staff Radiologist Performing Organization Address [facility] one Number INOCENCIO * CBC and Diff (manual diff if necessary) (01/31/2009 11:39 PM CDT) WBC 13.6 (H) 4.0 - 11.0 TH/UL [facility] RBC 4.96 4.00 - 5.00 MIL/UL [facility] Hemoglobin 13.6 12.0 - 15.0 G/DL [facility] Hematocrit 41 36 - 45 % [facility] MCV 82 80 - 99 FL [facility] MCH 27 27 - 34 PG [facility] MCHC 33 32 - 36 % [facility] RDW 16.1 (H) <14.5 % [facility] Platelet Count 463 (H) 140 - 400 TH/UL [facility] MPV 9.5 9.4 - 12.3 FL [facility] Specimen Performing Organization Address [facility] one Number SLRL [address] [place] [phone] [place] * DIFFERENTIAL (01/31/2009 11:39 PM CDT) % Neutrophils 68 45 - 78 % [facility] %Lymphocytes 22 15 - 47 % [facility] %Monocytes 9 0 - 12 % [facility] %Eosinophils 1 0 - 7 % [facility] %Basophils 1 0 - 2 % [facility] # Granulocytes 9.2 (H) 1.7 - 6.8 TH/UL [facility] # Lymphocytes 3.0 1.0 - 3.3 TH/UL [facility] # Monocytes 1.2 (H) 0.2 - 0.9 TH/UL [facility] # Eosinophils 0.1 0.0 - 0.4 TH/UL [facility] # Basophils 0.1 0.0 - 0.2 TH/UL [facility] Specimen Performing Organization Address [facility] one Number RL [address] [phone] [place] * Comprehensive Metabolic Panel (01/31/2009 11:39 PM CDT) Albumin 4.1 3.5 - 5.0 G/DL [facility] Aspartate 16 15 - 41 IU/L [facility] Aminotransferas e Bilirubin Total 1.0 0.3 - 1.4 MG/DL [facility] Protein Total 6.7 6.0 - 8.0 G/DL [facility] Serum Calcium 9.2 8.8 - 10.5 MG/DL [facility] Creatinine 0.9 0.4 - 1.1 MG/DL [facility] Glucose 176 (H) 65 - 100 MG/DL [facility] Alkaline 55 42 - 128 IU/L [facility] Phosphatase Sodium 139 134 - 144 MEQ/L [facility] Potassium 3.0 (L) 3.5 - 5.1 MEQ/L [facility] Chloride 104 101 - 111 MEQ/L [facility] Carbon Dioxide 20 (L) 23 - 32 MEQ/L [facility] Blood Urea 16 8 - 26 MG/DL [facility] Nitrogen Anion Gap 15 3 - 15 [facility] Alanine 12 (L) 14 - 63 IU/L [facility] Aminotransferas e Specimen Performing Organization Address City/State/[facility] Ph one Number [facility] [address] [place], [place] [address] [facility] documented in this encounter Visit Diagnoses Diagnosis Other and unspecified noninfectious gas troenteritis and colitis(558.9) Other and unspecified noninfectious gas troenteritis and colitis documented in this encounter
--- OUTSIDE RECORDS SUMMARY | 2020-02-08 04:19 | XMS REPORT | Encounter Summary ---
Author Author [facility] Organization [facility] Address Unknown Phone Unavailable Care Team Providers Care Supervisor Cigarette Making Department Name Role Phone PCP Unavailable Encounter Details Care Team Description Date Type Department Jim Ruiz MD [address] [place] [address] [phone] [facility] Date Tobacco [...] Note - Lobo Ruiz MD - 11/13/2013 6:17 AM BRIM WELT SEWING MACHINE OPERATOR REPORT Name: BARBARA MORENO MRN/Unit #: [id number] Chart #: Date of : 1965 DATE OF SERVICE: 10/27/2009 She presents to the office for evaluation of her Port-A-Cath which was placed in April 2007. She has been unable to withdraw blood from the Port-A-Cath on any hospital admission, and thus has only been able to infuse. With her past admission, a PICC line was placed and the Port-A-Cath was not utilized, so she is interested in removal. She also has a small suture granuloma in her right neck which causes some occasional discomfort, and she would request removal as well. We will try to do this later in the day if scheduling allows. We discussed removal with local anesthesia, and she will follow up either later today if time is available, or perhaps in the future. Lobo Ruiz MD Dictated by: cc: WELT SEWING MACHINE OPERATOR * Clinic Note - Lobo Ruiz MD - 11/13/2013 6:16 AM BRIM WELT SEWING MACHINE OPERATOR REPORT Name: BARBARA MORENO MRN/Unit #: [id number] Chart #: Date of : 1965 DATE OF SERVICE: 10/27/2009 She returned back to the office for removal of her Port-A-Cath, as well as excision of a small nodule in her right neck. The Port-A-Cath site was prepped and draped and infiltrated with lidocaine with epinephrine. A small incision was created at her previous incision site. The Port-A-Cath was identified and easily removed. Hemostasis was ensured and the wound was closed with 3-0 Vicryl suture. Steri-Strips were applied. The nodule in her right neck measured approximately 0.7 cm in length. A 1.5 cm elliptical incision was created and this area was excised. Hemostasis was obtained and this was closed with Vicryl suture. She will return for followup as needed. Lobo Ruiz MD Dictated by: cc: WELT SEWING MACHINE OPERATOR documented in this encounter Plan of Treatment Not on filedocumented as of this encounter Visit Diagnoses Not on filedocumented in this encounter
--- OUTSIDE RECORDS SUMMARY | 2020-02-08 04:19 | XMS REPORT | Encounter Summary ---
Author Author [facility] Organization [facility] Address Unknown Phone Unavailable Care Team Providers Care Sas Developer Analyst Name Role Phone PCP Unavailable Encounter Details Care Team Description Date Type Department Jim Ruiz MD [address] [place], [place] [id number] Digestive system complication [facility] [address] 07/14/2009 [place] [address] Social History Date Tobacco Use Types Packs/Day Years Used Never Assessed Sex Assigned at Date Recorded Not on file Industry Job Start Date Occupation Not on file Not on file Not on file Travel End Travel History Travel Start No recent travel history available. documented as of this encounter Discharge Summaries * Lobo Ruiz MD - 11/13/2013 7:10 AM NEUROPSYCHOLOGY DIRECTOR REPORT Name: BARBARA MORGAN MRN/Unit #: [id number] Attending Physician: Jim RUIZ Date of : 1965 DATE OF ADMISSION: 07/11/2009 DATE OF DISCHARGE: 07/14/2009 PRINCIPAL DIAGNOSIS: Dysphagia. PRINCIPAL PROCEDURE: Redo Az fundoplication with hiatal hernia repair on 07/10/[address] Ruiz. BRIEF HISTORY OF PRESENT ILLNESS: This is a 44-year-old woman who had a laparoscopic Az fundoplication on January 17, 2009 at an outlying facility for a longstanding history of gastroesophageal reflux disease, as well as, heartburn. She had problems since then with keeping liquids down and has lost about 40 pounds. Endoscopy has revealed that she does have a narrow gastroesophageal junction. This has been dilated. She eventually was referred to Dr. Ruiz for a possible revision of her fundoplication. HOSPITAL COURSE: She was admitted on the morning of 07/10/2009. She went to the operating room where she did have her revision of her Az fundoplication with hiatal hernia repair performed. She tolerated the procedure well, went to the recovery room, and then on medical/surgical floor. Postop day #1, she was having a fair amount of pain in her lower abdomen that was well controlled with her pain medication. Postop day #2, she continued to have pain in her lower abdomen. She was having some difficulty swallowing but was improving with clear liquids. At that time, some lab work was performed on her and a CBC demonstrated that her white blood cell count was 20.4. It was determined it would be prudent to do an upper GI study to rule out a leak. This was performed and the upper GI showed no extravasation of the contrast and did not suggest a leak at that time. The patient remained in the hospital for some pain control and on postop day #3, her white blood cell count came down to 12.2. She was feeling quite well and was prepared to discharge on postop day #3, however, upon moving about the room, she did become dizzy and slightly nauseated and she felt as if she would like to stay one more day and we felt it was prudent to monitor her white blood cell count, as well as her lower abdominal pain. On the , the patient was up and about and ready to discharge at 6:30 in the morning. She was packed and dressed and she states she felt much better. There was a mild amount of confusion and she related this to the morphine. Her mother confirmed that once she gets morphine for over 2 days then she does become confused. Mother assured us that she was comfortable taking the patient home so upon day of discharge, her vital signs were as follows. Her temperature was 99.1. Her pulse was 81, respirations 18, and blood pressure was 123/80. Her saturations were 97% on room air. She was awake and alert, slightly confused. She was getting some very vivid dreams confused with real life from last night but able to carry on a conversation. Her respirations were even and unlabored. Lungs were clear bilaterally. She had S1 and S2. Her abdomen was round, slightly tender to palpation, appropriately so. She was tolerating clear liquids without any nausea, vomiting, or dysphagia. She was voiding without difficulty clear yellow urine. DISCHARGE LABORATORY: On day of discharge included a white blood cell count of 11.5, hemoglobin 12.6, hematocrit 37, platelet count 294. Her BMP showed a sodium of 143, potassium of 3.4, chloride of 106, carbon dioxide 29, BUN was less than 5, creatinine was 0.5, glucose was 99, her calcium was 8.4, her magnesium was 1.7, and her phosphorus was 3.2. DISCHARGE INSTRUCTIONS: She has been sent home in fair condition with her parents. She has been told it is okay to do stairs. It is okay to shower. She is to ambulate t.i.d. and continue her . Her activity restrictions include no heavy lifting, pushing, pulling greater than 15 pounds for 6 weeks or until released by Dr. Ruiz. Her dietary restrictions are a Az diet and she has been given the paperwork with the diet on there and given instructions on how to follow the diet. She is to follow-up with Dr. Ruiz in 2 weeks. DISCHARGE MEDICATIONS: She is to continue all of her home medications, which include Ambien CR 12.5 mg daily, Florinef 0.1 mg daily, Premarin 0.625 mg daily, trazodone 150 mg at bedtime, Valtrex 500 mg daily, vitamin D 2,000 IUs daily, Xanax 1 mg 3 times a day. Additionally, she will go home on Lortab elixir 7.5/500 mg and 15 ml. She can have 15-30 ml every 6 hours p.r.n. pain and she will also have Colace elixir 100 mg b.i.d. for constipation. The patient verbalizes understanding of her discharge instructions and medications, as well as her mother understanding her discharge instructions and medications. Lobo Ruiz MD Dictated By: Samantha Olvera RN, TSO-C cc: OPSYCHOLOGY DIRECTOR documented in this encounter Medications at Time [...] Note - Lobo Ruiz MD - 11/13/2013 7:12 AM NEUROPSYCHOLOGY DIRECTOR REPORT Name: BARBARA MORGAN MRN/Unit #: [id number] Attending Physician: Jim RUIZ Date of : 1965 DATE OF PROCEDURE: 07/10/2009 PREOPERATIVE DIAGNOSIS: Dysphagia, status post Az fundoplication. POSTOPERATIVE DIAGNOSIS: Dysphagia, status post Az fundoplication. PROCEDURE: Laparoscopic take-down and revision of Az fundoplication,, repair of paraesophageal hernia with Surgassist Biodesign mesh, and Az fundoplication over 54-Danish bougie dilator. SURGEON: Lobo Ruiz MD CLINICAL RESEARCH ANALYST: Vianney Barajas MD ANESTHESIA: General endotracheal anesthesia. ESTIMATED BLOOD LOSS: Minimal. SPECIMEN: None. DESCRIPTION OF PROCEDURE: The patient was taken to the operating room, placed supine, general anesthesia was initiated, a Aponte catheter was placed, she was prepped and draped in the usual sterile manner. Half percent Marcaine was infiltrated at all incisions. Abdominal cavity was entered by way of a left upper quadrant Veress needle. After normal saline drop test, the abdomen was insufflated with CO2. A 5-mm port was placed superior and to the left of the umbilicus. The camera was placed revealing the abdominal contents. The 5-mm ports were then placed along the subcostal region with a solitary 12-mm port in the left midclavicular line. A liver retractor was placed through the right lateral port and used to elevate the left lobe of the liver. There were significant adhesions to the undersurface of the liver with the stomach adherent to the undersurface of the liver. These were taken down using sharp dissection with occasional cautery or the harmonic scalpel for hemostasis. The right destini was finally identified and we began skeletonization of the right destini. A large retroesophageal window was established as there was fairly easy plane in this direction. We continued our mobilization superiorly and anterior over the esophagus. There were dense adhesions back posteriorly by the spleen and these were taken down using the harmonic scalpel. Finally, the previous fundoplication was freed. It appears that the fundoplication was somewhat slipped down onto the stomach and the hiatal closure was quite tight. The hiatal closure was opened to accommodate our dissection and the fundoplication was taken down with great care to ensure no injury to the stomach. We mobilized the entire superior third of the greater curvature, releasing the short gastrics from the spleen, and mobilized the esophagus well up into the mediastinum to obtain esophageal length. There was adequate esophageal length within the abdominal cavity. No lucy gastroplasty was required. We did reapproximate the crura, leaving adequate hiatal size to accommodate the esophagus. We then reinforced this cruroplasty with SurgAssist Biodesign hiatal hernia graft. This was secured to the right and left destini using 0 silk sutures and then sutured to the cruroplasty repair using Evicel. This was allowed to dry. The fundus of the stomach was then grasped and brought posterior to the esophagus and a 360-degree Az fundoplication was performed over a 54-Danish bougie dilator which had been passed by anesthesia. Three sutures were used for the fundoplication, the 2 uppermost stitches incorporating a bite of esophagus between the gastric sutures with the inferiormost stitch without an esophageal stitch. All sutures were placed above the GE junction. There was no twisting or kinking of the wrap. The dilator was removed. Hemostasis was insured. The liver retractor was removed and the 12-mm fascial defect was closed with 0 Vicryl [id number] suture. Skin incisions were closed with 4-0 Monocryl subcuticular stitches. Steri-Strips were applied. All sponge, needle, and instrument counts were reported correct. She tolerated the procedure well without complication. I was present and scrubbed throughout the procedure. Lobo Ruiz MD Dictated By: cc: MD Nancy Kay DO OPSYCHOLOGY DIRECTOR documented in this encounter Plan of Treatment Not on filedocumented as of this encounter Procedures Comments Procedure Name Priority Date/Time Associated Diag nosis PHOSPHORUS Routine 07/14/2009 4:35 AM CDT MAGNESIUM Routine 07/14/2009 4:35 AM CDT COMPLETE BLOOD COUNT Routine 07/14/2009 4:35 AM CDT BASIC METABOLIC PANEL Routine 07/14/2009 4:35 AM CDT PHOSPHORUS Routine 07/13/2009 5:12 AM CDT MAGNESIUM Routine 07/13/2009 5:12 AM CDT COMPLETE BLOOD COUNT Routine 07/13/2009 5:12 AM CDT BASIC METABOLIC PANEL Routine 07/13/2009 5:12 AM CDT COMPLETE BLOOD COUNT Routine 07/12/2009 12:25 PM CDT FL UGI W KUB Routine 07/12/2009 9:21 AM CDT URINE NITRITE Routine 07/12/2009 6:00 AM CDT URINALYSIS (INCLUDES Routine 07/12/2009 MICROSCOPIC REVIEW, IF 6:00 AM CDT INDICATED) CULTURE, BLOOD WITH FIONA Routine 07/12/2009 5:50 AM CDT CULTURE, BLOOD WITH FIONA Routine 07/12/2009 5:44 AM CDT XR CHEST SINGLE VIEW Routine 07/12/2009 FRONTAL 3:52 AM CDT PHOSPHORUS Routine 07/11/2009 7:37 AM CDT MAGNESIUM Routine 07/11/2009 7:37 AM CDT BASIC METABOLIC PANEL Routine 07/11/2009 7:37 AM CDT documented in this encounter Results * Complete Blood Count (07/14/2009 4:35 AM CDT) Only the most recent of 3 results within the time period is included. WBC 11.5 (H) 4.0 - 11.0 TH/UL [facility] RBC 4.34 4.00 - 5.00 MIL/UL [facility] Hemoglobin 12.6 12.0 - 15.0 G/DL [facility] Hematocrit 37 36 - 45 % [facility] MCV 85 80 - 99 FL [facility] MCH 29 27 - 34 PG [facility] MCHC 34 32 - 36 % [facility] RDW 14.9 (H) <14.5 % [facility] Platelet Count 294 140 - 400 TH/UL [facility] MPV 9.9 9.4 - 12.3 FL [facility] Specimen Performing Organization Address [facility] Ph one Number [id number] [place] [phone] [facility] * Phosphorus (07/14/2009 4:35 AM CDT) Only the most recent of 3 results within the time period is included. Phosphorus 3.2 2.5 - 4.5 MG/DL [facility] Specimen Performing Organization Address [facility] Ph one Number [id number] [place] [phone] [place] * Basic Metabolic Panel (07/14/2009 4:35 AM CDT) Only the most recent of 3 results within the time period is included. Sodium 143 134 - 144 MEQ/L [facility] Potassium 3.4 (L) 3.5 - 5.1 MEQ/L [facility] Chloride 106 101 - 111 MEQ/L [facility] Carbon Dioxide 29 23 - 32 MEQ/L [facility] Anion Gap 8 3 - 15 [facility] Creatinine 0.5 0.4 - 1.1 MG/DL [facility] Blood Urea <5 (A) 8 - 26 MG/DL [facility] Nitrogen Glucose 99 65 - 100 MG/DL [facility] Calcium 8.4 (L) 8.8 - 10.5 MG/DL [facility] Specimen Performing Organization Address [facility] Ph one Number [id number] [place], [place] [address] [facility] * Magnesium (07/14/2009 4:35 AM CDT) Only the most recent of 3 results within the time period is included. Magnesium 1.7 1.4 - 2.0 MEQ/L [facility] Specimen Performing Organization Address [facility] Ph one Number [id number] [place] [phone] [place] * FL UGI w KUB (07/12/2009 9:21 AM CDT) Specimen Narrative Performed At JE PAINTER Patient: BARBARA MORGAN [facility] Rec#: [id number] Sex: F : 1965 Latricia#: [id number] Location: [place] [address] Check-in#: [id number] Procedure Requested: [id number] DX UGI W KUB Reason For Exam: POST-OP Exam Ordered: 07/12/2009 075 4 Exam Date/Time: 07/12/2009 0941 Check-in Date/Time: 07/12/2009 0755 Attendin Jim RUIZ Requestin Jim RUIZ Referrin NO, REFERRING Primary Care: NANCY STAHL "" These images and this report have been reviewed and edited by the Staff Radiologist. SINGLE CONTRAST UPPER GI SERIES Date: Jul 12, 2009 9:41:00 AM Indication: POST-OP, laparoscopic Nisse n revision 07/10. Comparison: None Procedure: Pre- and post abdomen radiog raphs were obtained. Water-soluble contrast examination was performed of the esophagus, stomach and proximal small bowel. Findings: Archeology Faculty Member film of the abdomen dem onstrates nonobstructive bowel gas pattern with scattered air througho ut the colon. No intraperitoneal free air. Right upper quadrant surgical clips. Changes of Az fundoplication. Ready passage of contrast from esophagus into the stomach is noted. No extravasation of contrast was identified at the gastroesophageal junc tion to suggest leak. Impression: No extravasation of contrast at the simon gical site to suggest leak. Signed (Authenticated, Released) Date-T abdias: 07/12/2009 1334 Medical Physiologist- SUJEY AGUILAR M.D. , Staff Radiologist Dictated By- BRAXTON RODRIGUEZ M.D., Reside nt Staff Physician- SUJEY AGUILAR M.D., Staff Radiologist Authenticated By- SUJEY AGUILAR M.D. , Staff Radiologist Procedure Note Interface, Rad Conversion - 11/14/2013 4:19 AM NEUROPSYCHOLOGY DIRECTOR REPORT Patient: BARBARA MORGAN [facility] Rec#: [id number] Sex: F : 1965 Latricia#: [id number] Location: [facility] 4406 Check-in#: [id number] Procedure Requested: [id number] DX UGI W KUB Reason For Exam: POST-OP Exam Ordered: 07/12/2009 0754 Exam Date/Time: 07/12/2009 0941 Check-in Date/Time: 07/12/2009 0755 Attendin Jim RUIZ Requestin Jim RUIZ Referrin IMTIAZ, REFERRING Primary Care: NANCY STAHL "" These images and this report have been reviewed and edited by the Staff Radiologist. SINGLE CONTRAST UPPER GI SERIES Date: Jul 12, 2009 9:41:00 AM Indication: POST-OP, laparoscopic Az revision 07/10. Comparison: None Procedure: Pre- and post abdomen radiographs were obtained. Water-soluble contrast examination was performed of the esophagus, stomach and proximal small bowel. Findings: Archeology Faculty Member film of the abdomen demonstrates nonobstructive bowel gas pattern with scattered air throughout the colon. No intraperitoneal free air. Right upper quadrant surgical clips. Changes of Az fundoplication. Ready passage of contrast from esophagus into the stomach is noted. No extravasation of contrast was identified at the gastroesophageal junction to suggest leak. Impression: No extravasation of contrast at the surgical site to suggest leak. Signed (Authenticated, Released) Date-Time: 07/12/2009 1334 Medical Physiologist- SUJEY AGUILAR M.D., Staff Radiologist Dictated By- BRAXTON RODRIGUEZ M.D., Resident Staff Physician- SUJEY AGUILAR M.D., Staff Radiologist Authenticated By- SUJEY AGUILAR M.D., Staff Radiologist Performing Organization Address [facility] Ph one Number [id number] * Urinalysis (07/12/2009 6:00 AM CDT) Appearance, YELLOW [facility] Urine Specific 1.010 <1.030 [facility] [place], UA PH Urine 7.5 5.0 - 8.0 [facility] Hemoglobin NEGATIVE NEGATIVE [facility] Urine Ketones Urine SMALL (A) NEGATIVE [facility] Glucose Urine NEGATIVE NEGATIVE [facility] Protein Urine NEGATIVE NEGATIVE [facility] Qual Leukocyte NEGATIVE NEGATIVE [facility] Esterase Urobilinogen NEGATIVE NEGATIVE [facility] Urine Bilirubin Urine NEGATIVE NEGATIVE [facility] Specimen Performing Organization Address [facility] Ph one Number [id number] [place] [phone] [facility] * Urine Nitrite (07/12/2009 6:00 AM CDT) Nitrite Urine NEGATIVE NEGATIVE [facility] Specimen Performing Organization Address [facility] Ph one Number [id number] [place] [phone] [facility] * Culture, Blood with FIONA (07/12/2009 5:50 AM CDT) Only the most recent of 2 results within the time period is included. Specimen Bronchial Aveolor Lavage Narrative Performed At REPORT [facility] [id number] F 44 YRS NO BLOOD CULTURES PROCEDURE: TELMA KHAN COLLECTED: 07/12/09 0550 SOURCE: BLOOD RECEIVED: 07/12/0905 R PORT A CATH STARTED: 07/12/09 0737 FINAL REPORT--- FINAL REPORT 07/17/09 1621 NO GROWTH at 5 DAYS Performing Organization Address City/State/Zipcode Ph one Number [id number] [phone] [place], [place] [address] [place] * XR Chest single view frontal (07/12/2009 3:52 AM CDT) Specimen Narrative Performed At REPORT JAZMYNERAZ Patient: BARBARA MORGAN [facility] Rec#: [id number] Sex: F : 1965 Latricia#: [id number] Location: [place] [id number] Check-in#: [id number] Procedure Requested: [id number] DX CHEST SIN GLE VIEW Reason For Exam: FEVER UNKNOWN OR IGIN Exam Ordered: 07/12/2009 033 9 Exam Date/Time: 07/12/2009351 Check-in Date/Time: 07/12/2009351 AttendinJim RASCON Requestin DELFIN GRIFFIN "" Referrin JHONATAN KITCHEN [address] Primary Care: NANCY STAHL "" These images and this report have been reviewed and edited by the Staff Radiologist. DX CHEST SINGLE VIEW INDICATION: FEVER UNKNOWN ORIGIN. COMPARISON STUDY: 04 April FINDINGS: Stable right central line. Lo w lung volume Lungs: Left lower lobe subsegmental ate lectasis and/or airspace opacity. Right lower lobe subsegmental atelectas is. The tracheobronchial tree and hilar structures are normal. Pleura: No pleural effusion or pneumoth orax. Right supraclavicular subcutaneous air Heart and Mediastinum: Mild cardiac enl argement. The great vessels of the thorax are normal. Bones: The visualized skeletal structur es are within normal limits. IMPRESSION: 1. Pulmonary hypoventilation with asymm etrical bibasilar air space opacities and/or atelectasis Signed (Authenticated, Released) Date-T abdias: 07/12/2009 0731 Medical Physiologist- FABIAN MUNIZ M.D., Radiologist Dictated By- FABIAN MUNIZ M.D., Radio logist Staff Physician- FABIAN MUNIZ M.D., R adiologist Authenticated By- FABIAN MUNIZ M.D., Radiologist Procedure Note Interface, Rad Conversion - 11/14/2013 4:21 AM NEUROPSYCHOLOGY DIRECTOR REPORT Patient: BARBARA MORGAN [facility] Rec#: [id number] Sex: F : 1965 Latricia#: [id number] Location: [address] [address] Check-in#: [id number] Procedure Requested: [id number] DX CHEST SINGLE VIEW Reason For Exam: FEVER UNKNOWN ORIGIN Exam Ordered: 07/12/2009 0339 Exam Date/Time: 07/12/2009351 Check-in Date/Time: 07/12/2009351 Attendin Jim RUIZ Requestin MARCELLA GRIFFIN "" Referrin NO, REFERRING DR Primary Care: NANCY STAHL "" These images and this report have been reviewed and edited by the Staff Radiologist. DX CHEST SINGLE VIEW INDICATION: FEVER UNKNOWN ORIGIN. COMPARISON STUDY: 04 April FINDINGS: Stable right central line. Low lung volume Lungs: Left lower lobe subsegmental atelectasis and/or airspace opacity. Right lower lobe subsegmental atelectasis. The tracheobronchial tree and hilar structures are normal. Pleura: No pleural effusion or pneumothorax. Right supraclavicular subcutaneous air Heart and Mediastinum: Mild cardiac enlargement. The great vessels of the thorax are normal. Bones: The visualized skeletal structures are within normal limits. IMPRESSION: 1. Pulmonary hypoventilation with asymme trical bibasilar air space opacities and/or atelectasis Signed (Authenticated, Released) Date-Time: 07/12/2009730 Medical Physiologist- FABIAN MUNIZ M.D., Radiologist Dictated By- FABIAN MUNIZ M.D., Radiologist Staff Physician- FABIAN MUNIZ M.D., Radiologist Authenticated By- FABIAN MUNIZ M.D., Radiologist Performing Organization Address [facility]State[facility] Ph one Number INOCENCIO documented in this encounter Visit Diagnoses Diagnosis Digestive system complication documented in this encounter
--- OUTSIDE RECORDS SUMMARY | 2020-02-08 04:19 | XMS REPORT ---
Author Barbara Ramsey [facility] eClinicalWorks Address Unknown Phone Unavailable Care Team Providers Care Aeroplane Pilot Name Role Phone PAM FELTON CP Unavailable Allergies No Known Allergies Problems No Known Problems Medications No Known Medications Results No Known Results Summary Purpose eClinicalWorks Submission
--- OUTSIDE RECORDS SUMMARY | 2020-02-08 04:20 | XMS REPORT ---
Author Barbara Ramsey [facility] eClinicalWorks Address Unknown Phone Unavailable Care Team Providers Care Power Project Manager Name Role Phone PAM FELTON CP Unavailable Allergies No Known Allergies Problems No Known Problems Medications No Known Medications Results No Known Results Summary Purpose eClinicalWorks Submission
--- OUTSIDE RECORDS SUMMARY | 2020-02-08 04:20 | XMS REPORT ---
Author Barbara Ramsey [facility] eClinicalWorks Address Unknown Phone Unavailable Care Team Providers Care Electronics Supervisor Name Role Phone PAM FELTON CP Unavailable Allergies No Known Allergies Problems No Known Problems Medications No Known Medications Results No Known Results Summary Purpose eClinicalWorks Submission
[2020-02-08] MEDS ORDERED: DEXL60CA (04:26)
[2020-02-08] MEDS ORDERED: AMIT10TA6 (04:26)
[2020-02-08] MEDS ORDERED: PROMETHAZINE INJ 25 MG/ML (PHENERGAN) AMP IVP STA (04:32)
[2020-02-08] MEDS ORDERED: LACTATED RINGERS 1,000 ML IV ONE ×2 (04:32→05:24)
--- NOTE | 2020-02-08 04:40 | ED Abdominal Pain ---
General Chief Complaint: Abdominal/GI Problems Stated Complaint: VOMITING SINCE FRIDAY Nursing Triage Note: n/v/ abdominal pain since friday. seen at [facility] for same on friday. denies improvement. Sepsis Screen: No Definite Risk Source of Information: Patient Exam Limitations: No Limitations History of Present Illness Date Seen by Provider: February 08, 2020 Time Seen by Provider: 04:24 Initial Comments Here with report of epigastric abdominal pain and persistent nausea and vomiting for the last 4 days. Seen 3 days ago at [facility] for the same and is not better. Had Zofran and Phenergan at that time as well as IV fluids. Labs reportedly were okay at that point. Continued Zofran and Phenergan at home throughout the weekend and yesterday and is still persistently vomiting. Has history of Az fundoplication but had it reversed because she couldn't tolerate it. Follows with GI specialist at [facility] in [facility]. States her home meds are not helping. She feels terribly dehydrated. Complains of epigastric abdominal pain that she states is tearing. Denies diarrhea. Denies blood in vomit or stool. Reports that she is weak. Came here today because her usual hospital didn't do anything for her on Friday. Timing/Duration: 3-4 Days, Getting Worse Severity/Quality: Moderate, Aching, Other (. Tearing) Location: Epigastric Radiation: No Radiation Activities at Onset: None Modifying Factors: Worsens With Eating Associated Symptoms: No Back Pain, No Chest Pain, No Fever/Chills; Fatigue, Nausea/Vomiting; No Shortness of Air; Weakness Allergies and Home Medications Allergies Coded Allergies: levofloxacin (Verified Allergy, Unknown, 08/12/08) pt states cause red streaks up arms metoclopramide (Verified Allergy, Unknown, 10/21/05) prochlorperazine (Verified Allergy, Unknown, PATIENT HAS USED PHENERGAN IN THE PAST, 08/09/08) codeine (Verified Adverse Reaction, Mild, NAUSEA/VOMITING, 06/13/06) NSAIDS (Non-Steroidal Anti-Inflamma (Verified Adverse Reaction, Unknown, 10/21/15) SUGGEST SHE DOES NOT TAKE DUE TO CHRONIC PANCREATITIS. Uncoded Allergies: PATIENT MAY USE PHENERGAN SHE HAS IN THE PAST. (Allergy, Unknown, 05/19/08) Home Medications Alprazolam 1 Mg Tab.sr.24h, 1 MG PO QID, (Reported) Cyclobenzaprine HCl 10 Mg Tablet, 10 MG PO TID PRN for SPASMS, (Reported) Isosorbide Mononitrate 30 Mg Tab.er.24h, 30 MG PO DAILY, (Reported) Mesalamine 1.2 Gm Tablet.dr, 1.2 GM PO DAILY, (Reported) Olanzapine 5 Mg Tablet, 5 MG PO DAILY, (Reported) Ondansetron Hcl 4 Mg Tablet, 4 MG PO TID, (Reported) Oxycodone HCl/Acetaminophen 1 Each Tablet, 2 EACH PO Q6H Prescribed by: WILFREDO HERNANDEZ MD on 10/21/15 1400 Ranitidine HCl 150 Mg Tablet, 150 MG PO BID, (Reported) Trazodone Hcl 300 Mg Tablet, 300 MG PO HS, (Reported) Zolpidem Tartrate 12.5 Mg Tab.mphase, 12.5 MG PO HS, (Reported) Patient Home Medication List Home Medication List Reviewed: Yes Review of Systems Review of Systems Constitutional: see HPI; No chills, No fever EENTM: No See HPI, No Eye Pain Respiratory: No Symptoms Reported Cardiovascular: No Symptoms Reported Gastrointestinal: See HPI, Abdominal Pain; Denies Diarrhea; Nausea; Denies Rectal Bleeding; Vomiting Genitourinary: No Symptoms Reported Musculoskeletal: no symptoms reported Skin: no symptoms reported Psychiatric/Neurological: Anxiety, Weakness Endocrine: No Symptoms Reported Hematologic/Lymphatic: No Symptoms Reported All Other Systems Reviewed Negative Unless Noted: Yes Past Hkfxtem-Wiioym-Rfgssi Hx Past Med/Social Hx: Reviewed Nursing Past Med/Soc Hx Patient Social History Alcohol Use: Denies Use Recreational Drug Use: No Smoking Status: Former Smoker 2nd Hand Smoke Exposure: No Recent Foreign Travel: No Contact w/Someone Who Travel: No Recent Infectious Disease Expo: No Recent Hopitalizations: No Physical Abuse: No Sexual Abuse: No Mistreated: No Fear: No Immunizations Up To Date Tetanus Booster (TDap): Unknown Date of Pneumonia Vaccine: Jul 08, 2011 Date of Influenza Vaccine: Jul 08, 2011 Seasonal Allergies Seasonal Allergies: No Past Medical History Surgeries: Yes (L HIP REPLACEMENT X 3, L WRIST FUSION,MULT. 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: Hysterectomy, Menopausal Sexually Transmitted Disease: No Genitourinary: Yes Renal Failure, UTI-Chronic Gastrointestinal: Yes (CHRONIC NAUSEA/VOMITING) Abdominal Hernia, Gastroesophageal Reflux, Pancreatitis, Hiatal Hernia Musculoskeletal: Yes (CONGENITAL HIP DYSPLASIA--LEFT THR X 3) Arthritis Endocrine: Yes Adrenal Disease HEENT: No Cancer: No Psychosocial: Yes Sleep Difficulties, Anxiety, PTSD, Depression Integumentary: Yes (SHINGLES) Blood Disorders: Yes (ANEMIA) Family Medical History Reviewed Nursing Family Hx No Pertinent Family Hx Physical Exam Vital Signs Vital Signs - First Documented 02/08/20 04:18 Temp 36.8 Pulse 122 Resp 20 B/P (MAP) 101/82 (88) Pulse Ox 93 O2 Delivery Room Air Capillary Refill : Less Than 3 Seconds Height/Weight/BMI Height: 5'5" Weight: 155lbs. oz. 70.900732db; 26.00 BMI Method:Stated General Appearance: WD/WN, no apparent distress HEENT: PERRL/EOMI, pharynx normal Neck: full range of motion, supple Respiratory: lungs clear, normal breath sounds Cardiovascular: no murmur, tachycardia Peripheral Pulses: 2+ Dorsalis Pedis (R), 2+ Left Dors-Pedis (L), 2+ Radial Pulses (R), 2+ Radial Pulses (L) Gastrointestinal: normal bowel sounds, non tender, soft Extremities: non-tender, normal inspection Back: normal inspection, no CVA tenderness, no vertebral tenderness Neurologic/Psychiatric: alert, oriented x 3 Skin: normal color, warm/dry Progress/Results/Core Measures Results/Orders Lab Results Laboratory Tests Test 02/08/20 04:35 02/08/20 05:41 Range/Units White Blood Count 11.6 H 4.3-11.0 10^3/uL Red Blood Count 5.52 4.35-5.85 10^6/uL Hemoglobin 14.2 11.5-16.0 G/DL Hematocrit 43 35-52 % Mean Corpuscular Volume 78 L 80-99 FL Mean Corpuscular Hemoglobin 26 25-34 PG Mean Corpuscular Hemoglobin Concent 33 32-36 G/DL Red Cell Distribution Width 18.7 H 10.0-14.5 % Platelet Count 456 H 130-400 10^3/uL Mean Platelet Volume 9.4 7.4-10.4 FL Neutrophils (%) (Auto) 88 H 42-75 % Lymphocytes (%) (Auto) 9 L 12-44 % Monocytes (%) (Auto) 3 0-12 % Eosinophils (%) (Auto) 0 0-10 % Basophils (%) (Auto) 0 0-10 % Neutrophils # (Auto) 10.2 H 1.8-7.8 X 10^3 Lymphocytes # (Auto) 1.0 1.0-4.0 X 10^3 Monocytes # (Auto) 0.3 0.0-1.0 X 10^3 Eosinophils # (Auto) 0.0 0.0-0.3 10^3/uL Basophils # (Auto) 0.0 0.0-0.1 10^3/uL Neutrophils % (Manual) 87 % Lymphocytes % (Manual) 9 % Monocytes % (Manual) 2 % Metamyelocytes % 1 % Band Neutrophils 1 % Hypochromasia SLIGHT Sodium Level 138 135-145 MMOL/L Potassium Level 3.7 3.6-5.0 MMOL/L Chloride Level 102 98-107 MMOL/L Carbon Dioxide Level 20 L 21-32 MMOL/L Anion Gap 16 H 5-14 MMOL/L Blood Urea Nitrogen 23 H 7-18 MG/DL Creatinine 0.88 0.60-1.30 MG/DL Estimat Glomerular Filtration Rate > 60 BUN/Creatinine Ratio 26 Glucose Level 128 H 70-105 MG/DL Calcium Level 9.2 8.5-10.1 MG/DL Corrected Calcium 9.0 8.5-10.1 MG/DL Magnesium Level 1.8 1.6-2.4 MG/DL Total Bilirubin 0.3 0.1-1.0 MG/DL Aspartate Amino Transf (AST/SGOT) 17 5-34 U/L Alanine Aminotransferase (ALT/SGPT) 9 0-55 U/L Alkaline Phosphatase 72 40-136 U/L C-Reactive Protein High Sensitivity 0.43 0.00-0.50 MG/DL Total Protein 7.8 6.4-8.2 GM/DL Albumin 4.2 3.2-4.5 GM/DL Amylase Level 47 25-125 U/L Lipase 24 8-78 U/L Urine Color YELLOW Urine Clarity SL CLOUDY Urine pH 6.0 5-9 Urine Specific [place] 1.020 1.016-1.022 Urine Protein NEGATIVE NEGATIVE Urine Glucose (UA) NEGATIVE NEGATIVE Urine Ketones 3+ H NEGATIVE Urine Nitrite NEGATIVE NEGATIVE Urine Bilirubin 2+ H NEGATIVE Urine Urobilinogen 0.2 < = 1.0 MG/DL Urine Leukocyte Esterase NEGATIVE NEGATIVE Urine RBC (Auto) NEGATIVE NEGATIVE Urine RBC NONE /HPF Urine WBC NONE /HPF Urine Squamous Epithelial Cells 5-10 /HPF Urine Crystals NONE /LPF Urine Bacteria TRACE /HPF Urine Casts NONE /LPF Urine Mucus NEGATIVE /LPF Urine Culture Indicated NO My Orders Orders - GUSTAVO VÁZQUEZ MD Amylase (02/08/20 04:32) Cbc With Automated Diff (02/08/20 04:32) Comprehensive Metabolic Panel (02/08/20 04:32) Hs C Reactive Protein (02/08/20 04:32) Lipase (02/08/20 04:32) Magnesium (02/08/20 04:32) Ua Culture If Indicated (02/08/20 04:32) Ed Iv/Invasive Line Start (02/08/20 04:32) Lactated Ringers (Lr 1000 Ml Iv Solution (02/08/20 04:32) Promethazine Injection (Phenergan Injec (02/08/20 04:32) Ondansetron Injection (Zofran Injectio (02/08/20 04:45) Diphenhydramine Injection (Benadryl Inje (02/08/20 04:45) Morphine Injection (Morphine Injection (02/08/20 05:00) Lidocaine 2% Viscous 15 Ml (Xylocaine Vi (02/08/20 05:00) Antacid Suspension (Mylanta Suspension (02/08/20 05:00) Manual Differential (02/08/20 04:35) Lactated Ringers (Lr 1000 Ml Iv Solution (02/08/20 05:24) Medications Given in ED Current Medications Medications Dose Ordered Sig/Vinny Route Start Time Stop Time Status Last Admin Dose Admin Al Hydrox/Mg Hydrox/Simethicone 30 ml ONCE ONCE PO 02/08/20 05:00 02/08/20 05:01 DC 02/08/20 05:00 30 ML Diphenhydramine HCl 25 mg ONCE ONCE IV 02/08/20 04:45 02/08/20 04:46 DC 02/08/20 04:42 25 MG Lactated Ringer's 1,000 ml @ 0 mls/hr Q0M ONCE IV 02/08/20 04:32 02/08/20 04:34 DC 02/08/20 04:41 0 MLS/HR Lactated Ringer's 1,000 ml @ 0 mls/hr Q0M ONCE IV 02/08/20 05:24 02/08/20 05:25 DC 02/08/20 05:59 1,000 MLS/HR Lidocaine HCl 15 ml ONCE ONCE PO 02/08/20 05:00 02/08/20 05:01 DC 02/08/20 05:00 15 ML Morphine Sulfate 4 mg ONCE ONCE IVP 02/08/20 05:00 02/08/20 05:01 DC 02/08/20 05:01 4 MG Ondansetron HCl 4 mg ONCE ONCE IVP 02/08/20 04:45 02/08/20 04:46 DC 02/08/20 04:41 4 MG Vital Signs/I&O 02/08/20 04:18 Temp 36.8 Pulse 122 Resp 20 B/P (MAP) 101/82 (88) Pulse Ox 93 O2 Delivery Room Air Blood Pressure Mean: 88 Progress Progress Note : Progress Note Seen and evaluated. IV via port access, labs, UA, LR 1 L bolus, Zofran 4 mg IV total. 25 mg IV and Benadryl 25 mg IV ordered. Monitor patient. GI cocktail ordered as well as 4 mg of morphine IV due to pain. Monitor patient. 0545: UA obtained after second liter of LR ordered and initiated. Patient states that she is feeling a little better. Pending UA. Monitor patient. 0610: Overall feeling much better. UA would indicate dehydration. This will be covered with the fluid that was given. Patient feels confident she can get better home now. Discharged home with return precautions. Patient verbalize understanding instructions and agreement with plan. Departure Impression Primary Impression: Nausea and vomiting Qualified Codes: R11.2 - Nausea with vomiting, unspecified Additional Impression: Abdominal pain Qualified Codes: R10.13 - Epigastric pain Disposition: 01 HOME, SELF-CARE Condition: Improved Departure-Patient Inst. Decision time for Depature: 06:12 Referrals: JAMIE MAHMOOD MD (PCP/Family) Primary Care Physician Patient Instructions: Acute Abdomen (Belly Pain), Adult (DC), Nausea and Vomiting, Adult (DC) Add. Discharge Instructions: All discharge instructions reviewed with patient and/or family. Voiced understanding. Clear liquid diet for the next 24 hours and then advance as tolerated. Continue home medications as previously prescribed. Keep follow-up appointment scheduled tomorrow with your GI specialist. Return for worse pain, fever, vomiting, weakness, breathing problems or other concerns as needed. GUSTAVO VÁZQUEZ MD February 08, 2020 04:39
[2020-02-08] MEDS ORDERED: ONDANSETRON 4 MG/2 ML (SDV) Z0FRAN IVP ONE (04:45)
[2020-02-08] MEDS ORDERED: diphenhydrAMINE 50 MG/ML INJ (BENADRYL) IV ONE (04:45)
[2020-02-08 04:48] LABS: BASOPHILS % (AUTO) 0 % (0-10); EOSINOPHILS % (AUTO) 0 % (0-10); HEMATOCRIT 43 % (35-52); HEMOGLOBIN 14.2 G/DL (11.5-16.0); LYMPHOCYTES % (AUTO) 9 % (12-44); MEAN CORPUSCULAR HEMOGLOBIN 26 PG (25-34); MEAN CORPUSCULAR HGB CONC 33 G/DL (32-36); MEAN CORPUSCULAR VOLUME 78 FL (80-99); MEAN PLATELET VOLUME 9.4 FL (7.4-10.4); MONOCYTES # (AUTO) 0.3 X 10^3 (0.0-1.0); MONOCYTES % (AUTO) 3 % (0-12); NEUTROPHILS # (AUTO) 10.2 X 10^3 (1.8-7.8); NEUTROPHILS % (AUTO) 88 % (42-75); PLATELET COUNT 456 10^3/uL (130-400); RED CELL DISTRIBUTION WIDTH 18.7 % (10.0-14.5); WHITE BLOOD COUNT 11.6 10^3/uL (4.3-11.0)
[2020-02-08 04:59] LABS: ALBUMIN 4.2 GM/DL (3.2-4.5); CHLORIDE 102 MMOL/L (98-107); POTASSIUM 3.7 MMOL/L (3.6-5.0); SODIUM 138 MMOL/L (135-145)
[2020-02-08] MEDS ORDERED: morphine INJ 10 MG/ML 1ML (SYR OR VIAL) IVP ONE (05:00)
[2020-02-08] MEDS ORDERED: ANTACID SUSP 30 ML UDC (MYLANTA) PO ONE (05:00)
[2020-02-08] MEDS ORDERED: LIDOCAINE 2% VISCOUS 15 ML UDC PO ONE (05:00)
[2020-02-08 05:01] LABS: AMYLASE 47 U/L (25-125); CALCIUM 9.2 MG/DL (8.5-10.1)
[2020-02-08 05:02] LABS: GLUCOSE 128 MG/DL (70-105); TOTAL PROTEIN 7.8 GM/DL (6.4-8.2)
[2020-02-08 05:03] LABS: BILIRUBIN,TOTAL 0.3 MG/DL (0.1-1.0); CARBON DIOXIDE 20 MMOL/L (21-32)
[2020-02-08 05:05] LABS: ALKALINE PHOSPHATASE 72 U/L (40-136); CREATININE SERUM 0.88 MG/DL (0.60-1.30); GFR ESTIMATED > 60
[2020-02-08 05:06] LABS: BUN/CREATININE RATIO 26
[2020-02-08 05:08] LABS: ALANINE AMINOTRANSFERASE 9 U/L (0-55); MAGNESIUM 1.8 MG/DL (1.6-2.4)
[2020-02-08 05:09] LABS: LIPASE 24 U/L (8-78)
[2020-02-08 05:10] LABS: BAND NEUTROPHILS 1 %; LYMPHOCYTES % (MANUAL) 9 %; METAMYELOCYTES % 1 %; MONOCYTES % (MANUAL) 2 %; NEUTROPHILS % (MANUAL) 87 %
[2020-02-08 05:11] LABS: HYPOCHROMASIA SLIGHT
[2020-02-08 05:51] LABS: CLARITY,URINE SL CLOUDY; COLOR,URINE YELLOW; GLUCOSE, URINE (UA) NEGATIVE (NEGATIVE); KETONES,URINE 3+ (NEGATIVE); LEUKOCYTE ESTERASE ,URINE NEGATIVE (NEGATIVE); NITRITE,URINE NEGATIVE (NEGATIVE); PROTEIN,URINE NEGATIVE (NEGATIVE)
[2020-02-08 06:02] LABS: BACTERIA,URINE TRACE /HPF; BILIRUBIN,URINE 2+ (NEGATIVE)
[2020-02-08 06:20] VITALS: BP 139/109
== END 2020-02-08 06:20 | disposition home or self-care (01) ==
LOC: EDUNIT# 04:08 → ER 04:13
DX: R11.2 Nausea with vomiting, unspecified (principal); R10.13 Epigastric pain; K21.9 Gastro-esophageal reflux disease without esophagitis; F41.9 Anxiety disorder, unspecified; F32.9 Major depressive disorder, single episode, unspecified; Z88.1 Allergy status to other antibiotic agents; Z88.5 Allergy status to narcotic agent; Z88.6 Allergy status to analgesic agent; Z87.891 Personal history of nicotine dependence; Z96.642 Presence of left artificial hip joint
CPT/HCPCS: 36415; 80053; 81000; 82150; 83690; 83735; 85007; 85027; 86141; 96361; 96374; 96375

== ENCOUNTER 2020-05-06 18:05 | Emergency (ER) | payer OTHER ==
[~2020-05-06] VITALS: Ht 165 cm; Wt 73.0 kg
[~2020-05-06 18:05] MED LIST changes: +AMIT10TA6; +DEXL60CA; +NF-ZOL12.5 PO; -ZOLP12.546 PO
[2020-05-06 18:10] VITALS: BP 126/90
--- NOTE | 2020-05-06 18:24 | ED GU-Female ---
General Chief Complaint: Abdominal/GI Problems Stated Complaint: ABD PAIN Nursing Triage Note: Patient reports lower medial abdomen pain with nausea Nursing Sepsis Screen: No Definite Risk Source: patient History of Present Illness Date Seen by Provider: May 06, 2020 Time Seen by Provider: 18:08 Initial Comments PT ARRIVES VIA POV FROM HOME--WANTS WHEELCHAIR ON ARRIVAL STATES "I'M HAVING AN INTERSTITIAL CYSTITIS FLARE" C/O LOW ABDOMINAL PAIN "BLADDER PAIN" X 10 DAYS-"I'M IN SEVERE PAIN" THIS IS A CHRONIC PROBLEM--TOOK TRAMADOL X 1, ALEVE X 1 AND EXCEDRIN X 1--ALL LAST PM/YESTERDAY--HAS NOT TAKEN ANYTHING FOR PAIN TODAY STATES "I DON'T HAVE AN INFECTION" STATES SHE SAW MOBILE DEVELOPMENT MANAGER DR. ISIDRO MCKEON IN [place] ON 04/19/20 AND WAS GIVEN RX FOR TAGAMET SAW DR. BOTELLO ON Friday05/04/20 AND PLACED ON ANTIBIOTIC ( MACROBID) NO FEVER C/O SLIGHT NAUSEA WITH PAIN PT HAS BEEN PRESCRIBED [place], REGLAN, PHENERGAN, TRAMADOL, AMONG MULTIPLE OTHER MEDICATIONS WELL HAS BEEN FOLLOWED BY GI/ DR. FARRELL WELL FOR CHRONIC NAUSEA/VOMITING/ABDOMINAL PAIN PT ALSO WITH AN EXTENSIVE PSYCH HISTORY PT HAS RECEIVED MULTIPLE RX'S FOR NARCOTIC PAIN MEDICATIONS, BENZODIAZEPINES WELL BEEN GIVEN NARCOTICS NEARLY EVERY TIME SHE HAS BEEN SEEN HERE IN ER--FENTANYL, MORPHINE, OTHERS PT WANTING PAIN MEDICATION SOON SHE ARRIVES PCP: ROSALEE KHAN, ALSO GOES TO DR. WESTFALL IN [place] MOBILE DEVELOPMENT MANAGER: ROSALEE MONTIEL--ALSO SEES HIM FOR "PRIMARY CARE" GI: RASHAUN PRESTON UROLOGY: DR. BOTELLO Allergies and Home Medications Allergies Coded Allergies: levofloxacin (Verified Allergy, Unknown, 08/12/08) pt states cause red streaks up arms metoclopramide (Verified Allergy, Unknown, 10/21/05) prochlorperazine (Verified Allergy, Unknown, PATIENT HAS USED PHENERGAN IN THE PAST, 08/09/08) codeine (Verified Adverse Reaction, Mild, NAUSEA/VOMITING, 06/13/06) NSAIDS (Non-Steroidal Anti-Inflamma (Verified Adverse Reaction, Unknown, 10/21/15) DR TUCKER SHE DOES NOT TAKE DUE TO CHRONIC PANCREATITIS. Uncoded Allergies: PATIENT MAY USE PHENERGAN SHE HAS IN THE PAST. (Allergy, Unknown, 05/19/08) Home Medications Alprazolam 1 Mg Tab.sr.24h, 1 MG PO QID, (Reported) Cyclobenzaprine HCl 10 Mg Tablet, 10 MG PO TID PRN for SPASMS, (Reported) Isosorbide Mononitrate 30 Mg Tab.er.24h, 30 MG PO DAILY, (Reported) Mesalamine 1.2 Gm Tablet.dr, 1.2 GM PO DAILY, (Reported) Olanzapine 5 Mg Tablet, 5 MG PO DAILY, (Reported) Ondansetron Hcl 4 Mg Tablet, 4 MG PO TID, (Reported) Oxycodone HCl/Acetaminophen 1 Each Tablet, 2 EACH PO Q6H Prescribed by: WILFREDO HERNANDEZ MD on 10/21/15 1400 Ranitidine HCl 150 Mg Tablet, 150 MG PO BID, (Reported) Trazodone Hcl 300 Mg Tablet, 300 MG PO HS, (Reported) Zolpidem Tartrate 12.5 Mg Tab.mphase, 12.5 MG PO HS, (Reported) Patient Home Medication List Home Medication List Reviewed: Yes Review of Systems Review of Systems Constitutional: no symptoms reported Respiratory: no symptoms reported Cardiovascular: no symptoms reported Gastrointestinal: see HPI, abdominal pain; No diarrhea; nausea; No vomiting Genitourinary: see HPI, pain Musculoskeletal: no symptoms reported Past Ztyjthu-Jpnjos-Qhaszt Hx Past Med/Social Hx: Reviewed and Corrections made Patient Social History Alcohol Use: Denies Use Recreational Drug Use: No (DENIES BUT UDS HAS BEEN + FOR THC) Drug of Choice: DENIES, BUT UDS HAS BEEN + FOR THC Smoking Status: Former Smoker (QUIT 1998) 2nd Hand Smoke Exposure: No Recent Foreign Travel: No Contact w/Someone Who Travel: No Recent Infectious Disease Expo: No Recent Hopitalizations: No Immunizations Up To Date Tetanus Booster (TDap): Unknown Date of Pneumonia Vaccine: Jul 08, 2011 Date of Influenza Vaccine: Jul 08, 2011 Seasonal Allergies Seasonal Allergies: No Past Medical History Surgeries: Yes (L HIP REPLACEMENT X 3, L WRIST FUSION,MULT. 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, Menopausal Sexually Transmitted Disease: No Genitourinary: Yes (INTERSTITIAL CYSTITIS;UROSEPSIS/SHOCK/RENAL FAILURE/DIALYSIS/PLASMAPHORESIS) Renal Failure, Dialysis, UTI-Chronic Gastrointestinal: Yes (CHRONIC NAUSEA/VOMITING) Abdominal Hernia, Gastroesophageal Reflux, Pancreatitis, Hiatal Hernia Musculoskeletal: Yes (CONGENITAL HIP DYSPLASIA--LEFT THR X 3) Arthritis Endocrine: Yes (NEPHROGENIC DIABETES INSIPIDUS) Adrenal Disease HEENT: No Cancer: No Psychosocial: Yes (EXTENSIVE PSYCH ISSUES) Sleep Difficulties, Anxiety, PTSD, Depression Integumentary: Yes (SHINGLES) Blood Disorders: Yes (ANEMIA) Family Medical History No Pertinent Family Hx SOCIAL HISTORY: -DENIES ETOH -DENIES DRUG USE, BUT UDS HAS BEEN + FOR THC -FORMER SMOKER, 1 PPD. QUIT 1998 PSH: -PORT PLACEMENT LEFT CHEST -CYSTOSCOPIES -MULTIPLE EGD'S/COLONOSCOPIES/SPHINCTEROTOMIES/ERCP'S -JOEY FUNDOPLICATION WITH MULTIPLE REVISIONS AND MULTIPLE SURGERIES ON ESOPHAGUS -INTESTINAL RESECTION AGE 2--MECKEL'S -APPENDECTOMY -CHOLECYSTECTOMY -HYSTERECTOMY/BILATERAL SALPINGO-OOPHORECTOMY -CELIAC PLEXUS ABLATION -THORACOSCOPIC SYMPATHETIC NERVE ABLATION -LEFT TOTAL HIP REPLACEMENT X 3 -LEFT WRIST FUSION FOR BENIGN BONE TUMOR ADDITIONAL PMH: -ACUTE TUBULAR NEPHROSIS--ON DIALYSIS IN PAST -ADRENO-CORTICAL INSUFFICIENCY / CHRONIC STEROID USE IN PAST Physical Exam Vital Signs Vital Signs - First Documented 05/06/20 18:10 Temp 36.4 Pulse 100 Resp 18 B/P (MAP) 126/90 (102) Pulse Ox 94 Capillary Refill : Less Than 3 Seconds Height, Weight, BMI Height: 5'5" Weight: 155lbs. oz. 70.305511ql; 26.00 BMI Method:Stated General Appearance: WD/WN Cardiovascular: regular rate, rhythm, no murmur Progress/Results/Core Measures Suspected Sepsis Recent Fever Within 48 Hours: No Infection Criteria Present: None New/Unexplained Altered Menta: No Sepsis Screen: No Definite Risk SIRS Temperature: Pulse: 100 Respiratory Rate: 18 Laboratory Tests 05/06/20 18:20: White Blood Count 9.0 Blood Pressure 126 /90 Mean: 102 Laboratory Tests 05/06/20 18:20: Creatinine 0.77, Platelet Count 446H, Total Bilirubin 0.2 Results/Orders Lab Results Laboratory Tests Test 05/06/20 18:20 05/06/20 18:55 Range/Units White Blood Count 9.0 4.3-11.0 10^3/uL Red Blood Count 5.10 4.35-5.85 10^6/uL Hemoglobin 13.2 11.5-16.0 G/DL Hematocrit 40 35-52 % Mean Corpuscular Volume 78 L 80-99 FL Mean Corpuscular Hemoglobin 26 25-34 PG Mean Corpuscular Hemoglobin Concent 33 32-36 G/DL Red Cell Distribution Width 19.4 H 10.0-14.5 % Platelet Count 446 H 130-400 10^3/uL Mean Platelet Volume 9.2 7.4-10.4 FL Neutrophils (%) (Auto) 59 42-75 % Lymphocytes (%) (Auto) 29 12-44 % Monocytes (%) (Auto) 8 0-12 % Eosinophils (%) (Auto) 3 0-10 % Basophils (%) (Auto) 1 0-10 % Neutrophils # (Auto) 5.3 1.8-7.8 X 10^3 Lymphocytes # (Auto) 2.6 1.0-4.0 X 10^3 Monocytes # (Auto) 0.8 0.0-1.0 X 10^3 Eosinophils # (Auto) 0.3 0.0-0.3 10^3/uL Basophils # (Auto) 0.1 0.0-0.1 10^3/uL Sodium Level 138 135-145 MMOL/L Potassium Level 3.7 3.6-5.0 MMOL/L Chloride Level 103 98-107 MMOL/L Carbon Dioxide Level 24 21-32 MMOL/L Anion Gap 11 5-14 MMOL/L Blood Urea Nitrogen 28 H 7-18 MG/DL Creatinine 0.77 0.60-1.30 MG/DL Estimat Glomerular Filtration Rate > 60 BUN/Creatinine Ratio 36 Glucose Level 99 70-105 MG/DL Calcium Level 9.5 8.5-10.1 MG/DL Corrected Calcium 9.7 8.5-10.1 MG/DL Total Bilirubin 0.2 0.1-1.0 MG/DL Aspartate Amino Transf (AST/SGOT) 12 5-34 U/L Alanine Aminotransferase (ALT/SGPT) 8 0-55 U/L Alkaline Phosphatase 64 40-136 U/L Total Protein 6.8 6.4-8.2 GM/DL Albumin 3.8 3.2-4.5 GM/DL Urine Color ORANGE Urine Clarity CLEAR Urine pH 6.5 5-9 Urine Specific [place] 1.015 L 1.016-1.022 Urine Protein 1+ H NEGATIVE Urine Glucose (UA) TRACE H NEGATIVE Urine Ketones NEGATIVE NEGATIVE Urine Nitrite POSITIVE H NEGATIVE Urine Bilirubin NEGATIVE NEGATIVE Urine Urobilinogen 4.0 < = 1.0 MG/DL Urine Leukocyte Esterase NEGATIVE NEGATIVE Urine RBC (Auto) NEGATIVE NEGATIVE Urine RBC 0-2 /HPF Urine WBC 2-5 /HPF Urine Squamous Epithelial Cells 10-25 H /HPF Urine Crystals PRESENT H /LPF Urine Calcium Oxalate Crystals LARGE H /LPF Urine Bacteria FEW H /HPF Urine Casts NONE /LPF Urine Mucus NEGATIVE /LPF Urine Culture Indicated NO Urine Opiates Screen NEGATIVE NEGATIVE Urine Oxycodone Screen NEGATIVE NEGATIVE Urine Methadone Screen NEGATIVE NEGATIVE Urine Propoxyphene Screen NEGATIVE NEGATIVE Urine Barbiturates Screen NEGATIVE NEGATIVE Ur Tricyclic Antidepressants Screen POSITIVE H NEGATIVE Urine Phencyclidine Screen NEGATIVE NEGATIVE Urine Amphetamines Screen NEGATIVE NEGATIVE Urine Methamphetamines Screen NEGATIVE NEGATIVE Urine Benzodiazepines Screen POSITIVE H NEGATIVE Urine Cocaine Screen NEGATIVE NEGATIVE Urine Cannabinoids Screen POSITIVE H NEGATIVE My Orders Orders - DARIEL DE LOS SANTOS DO Ed Iv/Invasive Line Start (05/06/20 18:14) Cbc With Automated Diff (05/06/20 18:14) Comprehensive Metabolic Panel (05/06/20 18:14) Drug Screen Stat (Urine) (05/06/20 18:14) Ua Culture If Indicated (05/06/20 18:14) Phenazopyridine Tablet (Pyridium Tablet) (05/06/20 18:30) Orphenadrine Inj (Ed Only) (Norflex Inje (05/06/20 18:30) Medications Given in ED Current Medications Medications Dose Ordered Sig/Vinny Route Start Time Stop Time Status Last Admin Dose Admin Orphenadrine Citrate 60 mg ONCE ONCE IV 05/06/20 18:30 05/06/20 18:32 DC 05/06/20 18:31 60 MG Phenazopyridine HCl 200 mg ONCE ONCE PO 05/06/20 18:30 05/06/20 18:32 DC 05/06/20 18:31 200 MG Vital Signs/I&O 8/22/20 18:10 Temp 36.4 Pulse 100 Resp 18 B/P (MAP) 126/90 (102) Pulse Ox 94 Capillary Refill : Less Than 3 Seconds Blood Pressure Mean: 102 Progress Note : Progress Note PT DEMANDING NARCOTIC PAIN MEDICATIONS FROM ARRIVAL I INFORMED PT THAT I WOULD NOT BE GIVING HER ANY NARCOTICS, BUT WOULD PRESCRIBE OTHER APPROPRIATE MEDICATIONS FOR HER CONDITION ALSO ADVISED HER THAT SHE COULD CONTINUE WITH HER TRAMADOL--NOW YELLING AND STATES THAT SHE HAS NOT BEEN TAKING TRAMADOL AT ALL, AND "IT NEVER WORKS"--THIS IS IN DIRECT CONTRADICTION TO WHAT SHE STATED SHE HAD TAKEN WHEN SHE FIRST ARRI LEIGHA IN ER PT BECAME IRATE, AND RIPPED OUT HER PORT ACCESS NEEDLE AND STATES SHE IS LEAVING TO GO TO ANOTHER ER PT LEFT WITHOUT INSTRUCTIONS PT WALKED AND MOVED QUICKLY OUT OF ER WITHOUT ANY DIFFICULTY WHATSOEVER Departure Impression Primary Impression: UTI (urinary tract infection) Additional Impressions: HX OF INTERSTITIAL CYSTITIS Marijuana use Disposition: HOME, SELF-CARE Condition: Stable Departure-Patient Inst. Referrals: NO,LOCAL PHYSICIAN (PCP/Family) Primary Care Physician DARIEL DE LOS SANTOS DO May 06, 2020 18:24
[2020-05-06] MEDS ORDERED: ORPHENADRINE 60 MG/2 ML (NORFLEX) AMP (ED ONLY) IV ONE (18:30)
[2020-05-06] MEDS ORDERED: PHENAZOPYRIDINE 100 MG (PYRIDIUM) TABLET PO ONE (18:30)
[2020-05-06 18:55] LABS: BASOPHILS # (AUTO) 0.1 10^3/uL (0.0-0.1); BASOPHILS % (AUTO) 1 % (0-10); EOSINOPHILS # (AUTO) 0.3 10^3/uL (0.0-0.3); EOSINOPHILS % (AUTO) 3 % (0-10); HEMATOCRIT 40 % (35-52); HEMOGLOBIN 13.2 G/DL (11.5-16.0); LYMPHOCYTES # (AUTO) 2.6 X 10^3 (1.0-4.0); LYMPHOCYTES % (AUTO) 29 % (12-44); MEAN CORPUSCULAR HEMOGLOBIN 26 PG (25-34); MEAN CORPUSCULAR HGB CONC 33 G/DL (32-36); MEAN CORPUSCULAR VOLUME 78 FL (80-99); MEAN PLATELET VOLUME 9.2 FL (7.4-10.4); MONOCYTES # (AUTO) 0.8 X 10^3 (0.0-1.0); MONOCYTES % (AUTO) 8 % (0-12); NEUTROPHILS # (AUTO) 5.3 X 10^3 (1.8-7.8); NEUTROPHILS % (AUTO) 59 % (42-75); PLATELET COUNT 446 10^3/uL (130-400); RED CELL DISTRIBUTION WIDTH 19.4 % (10.0-14.5)
[2020-05-06 19:06] LABS: BILIRUBIN,URINE NEGATIVE (NEGATIVE); CLARITY,URINE CLEAR; COLOR,URINE ORANGE; GLUCOSE, URINE (UA) TRACE (NEGATIVE); KETONES,URINE NEGATIVE (NEGATIVE); LEUKOCYTE ESTERASE ,URINE NEGATIVE (NEGATIVE); NITRITE,URINE POSITIVE (NEGATIVE); PH,URINE 6.5 (5-9); PROTEIN,URINE 1+ (NEGATIVE)
[2020-05-06 19:08] LABS: ALANINE AMINOTRANSFERASE 8 U/L (0-55); ALBUMIN 3.8 GM/DL (3.2-4.5); ALKALINE PHOSPHATASE 64 U/L (40-136); BILIRUBIN,TOTAL 0.2 MG/DL (0.1-1.0); BUN/CREATININE RATIO 36; CALCIUM 9.5 MG/DL (8.5-10.1); CARBON DIOXIDE 24 MMOL/L (21-32); CHLORIDE 103 MMOL/L (98-107); CREATININE SERUM 0.77 MG/DL (0.60-1.30); GFR ESTIMATED > 60; GLUCOSE 99 MG/DL (70-105); POTASSIUM 3.7 MMOL/L (3.6-5.0); SODIUM 138 MMOL/L (135-145); TOTAL PROTEIN 6.8 GM/DL (6.4-8.2)
[2020-05-06 19:16] LABS: BACTERIA,URINE FEW /HPF; CALCIUM OXALATE CRYSTALS,UR LARGE /LPF; RBC,URINE 0-2 /HPF
[2020-05-06 19:18] LABS: AMPHETAMINE SCREEN, URINE NEGATIVE (NEGATIVE); BARBITURATE SCREEN URINE NEGATIVE (NEGATIVE); BENZODIAZEPINES SCREEN URINE POSITIVE (NEGATIVE); CANNABINOID SCREEN, URINE POSITIVE (NEGATIVE); COCAINE SCREEN URINE NEGATIVE (NEGATIVE); METHAMPHETAMINE SCREEN URINE S NEGATIVE (NEGATIVE); OPIATE SCREEN URINE NEGATIVE (NEGATIVE); TRICYCLIC ANTIDEPRESSANTS SCRE POSITIVE (NEGATIVE)
[2020-05-06 19:19] LABS: METHADONE STAT NEGATIVE (NEGATIVE); OXYCODONE STAT NEGATIVE (NEGATIVE); PROPOXYPHENE STAT NEGATIVE (NEGATIVE)
--- NOTE | 2020-05-06 19:31 | NUR ---
After Dr. Sullivan walked out of room, patient requested to have port needle removed. Patient states that she is going to another facility to get relief and that she was not stopping to sign any paperwork
== END 2020-05-06 19:31 | disposition left against medical advice (07) ==
LOC: EDUNIT# 18:05 → ER 18:06
DX: N39.0 Urinary tract infection, site not specified (principal); F12.90 Cannabis use, unspecified, uncomplicated; I10 Essential (primary) hypertension; K21.9 Gastro-esophageal reflux disease without esophagitis; F41.9 Anxiety disorder, unspecified; F32.9 Major depressive disorder, single episode, unspecified; Z88.1 Allergy status to other antibiotic agents; Z88.8 Allergy status to other drugs, medicaments and biological substances; Z87.448 Personal history of other diseases of urinary system; Z96.642 Presence of left artificial hip joint; Z88.5 Allergy status to narcotic agent; Z99.2 Dependence on renal dialysis; Z88.6 Allergy status to analgesic agent; Z87.891 Personal history of nicotine dependence
CPT/HCPCS: 36415; 80053; 80306; 81000; 85025; 87088

== ENCOUNTER → 2021-06-06 | Outpatient (CLI) | payer OTHER ==
[~2021-06-06] MED LIST changes: -AMIT10TA6; +AMT10T; +HEParin (CENTRAL IV FLUSH) 500 UNIT/5 ML SYR ONE; -ISOS30TA3 PO; +ISOS30TA82 PO; -OLAN5TAB25 PO; +OLN5T PO
[2021-06-06 08:46] LABS: HEMATOCRIT 42 % (35-52); HEMOGLOBIN 13.2 g/dL (11.5-16.0); MEAN CORPUSCULAR HEMOGLOBIN 27 pg (25-34); MEAN CORPUSCULAR HGB CONC 32 g/dL (32-36); MEAN CORPUSCULAR VOLUME 84 fL (80-99); MEAN PLATELET VOLUME 9.5 fL (9.0-12.2); PLATELET COUNT 313 10^3/uL (130-400)
[2021-06-06 09:06] LABS: ERYTHROCYTE SEDIMENTATION RATE 9 MM/HR (0-30)
== END ==
LOC: LAB 07:52
PROVIDERS: ATTEND Physical Medicine & Rehabilitation
DX: M53.3 Sacrococcygeal disorders, not elsewhere classified (principal)
CPT/HCPCS: 36415; 85027; 85652; 86038; 86039; 86431

== ENCOUNTER → 2021-06-22 | Outpatient (CLI) | payer OTHER ==
[~2021-06-22] MED LIST changes: -HEParin (CENTRAL IV FLUSH) 500 UNIT/5 ML SYR ONE
--- NOTE | 2021-06-22 12:32 | Diagnostic Imaging Report ---
PROCEDURE: MRI pelvis without contrast. TECHNIQUE: Multiplanar, multisequence MRI of the pelvis was performed without contrast. INDICATION: Sacral and coccyx pain, no history of injury. There are no prior MRI examinations available for comparison. The plain film examination of the pelvis performed on 06/23/2015 noted postsurgical changes consistent with a prior left hip arthroplasty procedure. There is no acute bony abnormality appreciated. On this exam there is marked artifact related to the postsurgical changes involving the left hip. Consequently the left hip and the prosthesis are not well evaluated. On the STIR fat-saturated sagittal series there is no abnormal signal arising from the sacrum or coccyx to suggest bone edema or fracture. There is degenerative disc and bone disease at L5-S1 but there is no evidence for spinal stenosis or any significant neural foraminal narrowing at this level. There is a lobulated 1.5 cm sacral cyst on the right at S2. This is unlikely to be clinically significant. The sacroiliac joints show mild symmetrical degenerative changes. There is no abnormal signal arising from the sacrum itself to indicate bone edema secondary to an insufficiency fracture. There is no pelvic mass or free fluid collection identified. IMPRESSION: 1. There is no acute bony abnormality to account for the patient's sacrococcygeal pain. Clinical followup is recommended. 2. No other acute abnormality is identified. 3. The left hip and the total hip prosthesis on the left are not well evaluated due to extensive artifact. Dictated by: Dictated on workstation # [id number]
== END ==
LOC: RAD 10:15
PROVIDERS: ATTEND Physical Medicine & Rehabilitation
DX: M53.3 Sacrococcygeal disorders, not elsewhere classified (principal)
CPT/HCPCS: 72195

== ENCOUNTER → 2021-07-18 | Outpatient (CLI) | payer OTHER ==
[~2021-07-18] MED LIST changes: +HEParin (CENTRAL IV FLUSH) 500 UNIT/5 ML SYR ONE
--- NOTE | 2021-07-18 08:54 | Diagnostic Imaging Report ---
Indication: Abnormal laboratory values. TIME OF EXAM: 8:45 AM Correlation is made with prior chest from 02/09/2016. Left chest wall Port-A-Cath tip overlying the SVC. The lungs are hyperinflated consistent with COPD. No infiltrates are detected. No effusion or pneumothorax is identified. IMPRESSION: COPD. No acute feature is identified. Dictated by: Dictated on workstation # [id number]
[2021-07-18 09:34] LABS: BASOPHILS # (AUTO) 0.1 10^3/uL (0.0-0.1); BASOPHILS % (AUTO) 1 % (0-10); EOSINOPHILS # (AUTO) 0.2 10^3/uL (0.0-0.3); EOSINOPHILS % (AUTO) 3 % (0-10); HEMATOCRIT 40 % (35-52); HEMOGLOBIN 13.1 g/dL (11.5-16.0); LYMPHOCYTES # (AUTO) 1.4 10^3/uL (1.0-4.0); LYMPHOCYTES % (AUTO) 25 % (12-44); MEAN CORPUSCULAR HEMOGLOBIN 28 pg (25-34); MEAN CORPUSCULAR HGB CONC 33 g/dL (32-36); MEAN CORPUSCULAR VOLUME 84 fL (80-99); MEAN PLATELET VOLUME 9.4 fL (9.0-12.2); MONOCYTES # (AUTO) 0.4 10^3/uL (0.0-1.0); MONOCYTES % (AUTO) 8 % (0-12); NEUTROPHILS # (AUTO) 3.6 10^3/uL (1.8-7.8); NEUTROPHILS % (AUTO) 63 % (42-75); PLATELET COUNT 269 10^3/uL (130-400); WHITE BLOOD COUNT 5.8 10^3/uL (4.3-11.0)
[2021-07-18 09:56] LABS: BILIRUBIN,TOTAL 0.8 MG/DL (0.1-1.0); CALCIUM 9.3 MG/DL (8.5-10.1); CREATININE SERUM 0.79 MG/DL (0.60-1.30); POTASSIUM 4.1 MMOL/L (3.6-5.0); TOTAL PROTEIN 6.9 GM/DL (6.4-8.2)
[2021-07-18 10:22] LABS: ERYTHROCYTE SEDIMENTATION RATE 13 MM/HR (0-30)
[2021-07-18 10:40] LABS: BILIRUBIN,URINE NEGATIVE (NEGATIVE); CLARITY,URINE CLOUDY; GLUCOSE, URINE (UA) NEGATIVE (NEGATIVE); KETONES,URINE NEGATIVE (NEGATIVE); LEUKOCYTE ESTERASE ,URINE NEGATIVE (NEGATIVE); NITRITE,URINE NEGATIVE (NEGATIVE); PROTEIN,URINE TRACE (NEGATIVE)
[2021-07-18 10:56] LABS: BACTERIA,URINE FEW /HPF; COLOR,URINE OTHER; RBC,URINE RARE /HPF
[2021-07-18 21:18] LABS: HEPATITIS C ANTIBODY C Non-Reactive (Non-Reactive)
[2021-07-20 14:07] LABS: IMMUNOFIX PATH REPORT NUMBER Complete (Complete)
== END ==
LOC: RAD 08:17
PROVIDERS: ATTEND Student in an Organized Health Care Education/Training Program
DX: J44.9 Chronic obstructive pulmonary disease, unspecified (principal); R76.0 Raised antibody titer; Z87.891 Personal history of nicotine dependence
CPT/HCPCS: 71046; 80053; 81000; 82570; 82595; 82784; 82787; 82955; 84156; 84165; 84432; 85025; 85652; 86141; 86160 ×2; 86200; 86225; 86235 ×5; 86255; 86256; 86334; 86376; 86431; 86704; 86800; 86803; 86812; 87340; G0499; 36415; 84155; 86706

== ENCOUNTER → 2021-11-14 | Outpatient (CLI) | payer OTHER ==
[~2021-11-14] MED LIST changes: +CYCL10TA25 PO; -CYCL10TA9 PO
[2021-11-14 10:41] LABS: BASOPHILS # (AUTO) 0.1 10^3/uL (0.0-0.1); BASOPHILS % (AUTO) 1 % (0-10); EOSINOPHILS # (AUTO) 0.2 10^3/uL (0.0-0.3); EOSINOPHILS % (AUTO) 3 % (0-10); HEMATOCRIT 38 % (35-52); LYMPHOCYTES # (AUTO) 1.7 10^3/uL (1.0-4.0); LYMPHOCYTES % (AUTO) 25 % (12-44); MEAN CORPUSCULAR HEMOGLOBIN 29 pg (25-34); MEAN CORPUSCULAR HGB CONC 32 g/dL (32-36); MEAN CORPUSCULAR VOLUME 89 fL (80-99); MEAN PLATELET VOLUME 9.1 fL (9.0-12.2); MONOCYTES # (AUTO) 0.4 10^3/uL (0.0-1.0); MONOCYTES % (AUTO) 6 % (0-12); NEUTROPHILS # (AUTO) 4.2 10^3/uL (1.8-7.8); NEUTROPHILS % (AUTO) 64 % (42-75); PLATELET COUNT 308 10^3/uL (130-400); WHITE BLOOD COUNT 6.6 10^3/uL (4.3-11.0)
[2021-11-14 10:59] LABS: ALBUMIN 3.4 GM/DL (3.2-4.5); POTASSIUM 4.3 MMOL/L (3.6-5.0)
[2021-11-14 11:00] LABS: CALCIUM 8.7 MG/DL (8.5-10.1)
[2021-11-14 11:03] LABS: BILIRUBIN,TOTAL 0.4 MG/DL (0.1-1.0)
[2021-11-14 11:04] LABS: ERYTHROCYTE SEDIMENTATION RATE 14 MM/HR (0-30)
[2021-11-14 11:05] LABS: CREATININE SERUM 0.69 MG/DL (0.60-1.30)
== END ==
LOC: LAB 10:05
PROVIDERS: ATTEND Student in an Organized Health Care Education/Training Program
DX: M05.79 Rheumatoid arthritis with rheumatoid factor of multiple sites without organ or systems involvement (principal); Z79.899 Other long term (current) drug therapy
CPT/HCPCS: 36415; 80053; 85025; 85652; 86141

== ENCOUNTER → 2021-12-05 | Outpatient (CLI) | payer OTHER ==
[~2021-12-05] MED LIST changes: -HEParin (CENTRAL IV FLUSH) 500 UNIT/5 ML SYR ONE
--- NOTE | 2021-12-05 15:27 | Diagnostic Imaging Report ---
PROCEDURE: CT pelvis without contrast. TECHNIQUE: Multiple contiguous axial images were obtained through the pelvis without the use of intravenous contrast. Sagittal and coronal reformations were performed. Auto Exposure Controls were utilized during the CT exam to meet ALARA standards for radiation dose reduction. INDICATION: Coccygeal pain. COMPARISON: MRI pelvis from 06/22/2021. FINDINGS: No acute or healing fracture within the sacrum or coccyx. Specifically, there are no features of sacral insufficiency fracture. SI joints are normal in alignment and have no ankylosis or marginal erosions. Left total hip arthroplasty has components in good alignment. There are no features of polyethylene wear or adverse localized tissue reaction. No acute periprosthetic fracture within the visualized aspects of the left total hip arthroplasty. The inferior fixation screw of the acetabular backing penetrates the posterior wall of acetabulum and has tip terminating in the region of the left sciatic notch. No osteonecrosis in the right femoral head. No fracture within the pubic rami on either side. No hip effusion is appreciated on either side by CT. No free pelvic fluid. Bilateral subcutaneous calcified injection granulomas are present in the gluteal region. IMPRESSION: 1. No abnormality within the sacrum or coccyx to account for patient's pain. 2. The inferior acetabular fixation screw from total hip arthroplasty does have tip terminating in the soft tissues at the region of the sciatic notch and could potentially impinge upon the portions of the sciatic nerve. Correlation for left-sided sciatic radicular symptoms. Dictated by: Dictated on workstation # [id number]
== END ==
LOC: RAD 11:15
PROVIDERS: ATTEND Neurological Surgery
DX: M53.3 Sacrococcygeal disorders, not elsewhere classified (principal); M79.605 Pain in left leg; Z96.649 Presence of unspecified artificial hip joint
CPT/HCPCS: 72192

== ENCOUNTER → 2021-12-24 | Outpatient (CLI) | payer OTHER ==
[2021-12-24 10:32] LABS: BILIRUBIN,URINE NEGATIVE (NEGATIVE); CLARITY,URINE CLEAR; COLOR,URINE YELLOW; GLUCOSE, URINE (UA) NEGATIVE (NEGATIVE); KETONES,URINE NEGATIVE (NEGATIVE); LEUKOCYTE ESTERASE ,URINE 3+ (NEGATIVE); NITRITE,URINE NEGATIVE (NEGATIVE); PROTEIN,URINE NEGATIVE (NEGATIVE)
[2021-12-24 10:41] LABS: BACTERIA,URINE LARGE /HPF; RBC,URINE 0-2 /HPF
[2021-12-24 10:46] LABS: BASOPHILS # (AUTO) 0.1 10^3/uL (0.0-0.1); BASOPHILS % (AUTO) 1 % (0-10); EOSINOPHILS % (AUTO) 0 % (0-10); HEMATOCRIT 41 % (35-52); HEMOGLOBIN 13.3 g/dL (11.5-16.0); LYMPHOCYTES # (AUTO) 1.6 10^3/uL (1.0-4.0); LYMPHOCYTES % (AUTO) 20 % (12-44); MEAN CORPUSCULAR HEMOGLOBIN 29 pg (25-34); MEAN CORPUSCULAR HGB CONC 33 g/dL (32-36); MEAN CORPUSCULAR VOLUME 87 fL (80-99); MEAN PLATELET VOLUME 8.9 fL (9.0-12.2); MONOCYTES # (AUTO) 0.6 10^3/uL (0.0-1.0); MONOCYTES % (AUTO) 8 % (0-12); NEUTROPHILS # (AUTO) 5.4 10^3/uL (1.8-7.8); NEUTROPHILS % (AUTO) 71 % (42-75); PLATELET COUNT 337 10^3/uL (130-400); WHITE BLOOD COUNT 7.7 10^3/uL (4.3-11.0)
[2021-12-24 11:03] LABS: CREATININE SERUM 0.77 MG/DL (0.60-1.30); POTASSIUM 4.4 MMOL/L (3.6-5.0)
== END ==
LOC: CARD 10:00
PROVIDERS: ATTEND Nurse Practitioner Family
DX: Z01.818 Encounter for other preprocedural examination (principal); N30.10 Interstitial cystitis (chronic) without hematuria
CPT/HCPCS: 36415; 80048; 81000; 85025; 87088; 93005

== ENCOUNTER 2022-04-08 05:49 | Emergency (ER) | payer OTHER ==
[2022-04-08 05:52] VITALS: BP 107/76
--- NOTE | 2022-04-08 06:39 | ED GU-Female ---
General Chief Complaint: - Reproductive Stated Complaint: UNABLE TO URINATE Nursing Triage Note: TO ED [facility]IA [facility] TO ROOM 5 STATING SHE "CAN'T EMPTY BLADDER". THIS HAS BEEN ONGOING ON AND OFF FOR 6-8 MONTHS. DOES NOT STRAIGHT CATH. LAST VOID AT 2100. STATES IT WAS PAINFUL TO URINATE AT THAT TIME. Source: patient, old records Exam Limitations: no limitations History of Present Illness Date Seen by Provider: Apr 08, 2022 Time Seen by Provider: 06:05 Initial Comments This 56-year-old woman presents to the emergency room via EMS with complaint of inability to void this morning and lower abdominal discomfort. She reportedly came by EMS because her refused to help her this morning based on history she gave the nurses. Her voiding problem appears to be a chronic problem. I reviewed her medications prior to interview and exam and found that she has been prescribed both Levsin and bethanechol which seem to be opposing medications in the treatment of bladder function problems. When I asked about her urology history and about the prescription of these 2 medications, she denied every being prescribed bethanechol or seeing the doctor that prescribed it which was Dr. Contreras at the [place], [place] emergency room. At this point she became antagonistic in her speech and demeanor. She asked to have her c ome back. I expressed concern about bringing her back to the room because she stated he was unkind to her earlier in the morning and refused to help her. I explained that I did not want any conflict in the emergency room while she was being evaluated and having her bladder drained, but I would be happy to bring him back to the room after her bladder was drained. On exam she was found to have abdominal tenderness. After very gently palpating her abdomen she yolanda up in a position and refused any further examination. She then demanded IV fluids. I inquired about her reasoning for demanding IV fluids. She stated that she has not been drinking so as to avoid needing to urinate. I explained to her that if she is capable of drinking, then she needs to drink to hydrate, not receive IV fluids. Vital signs were unremarkable and did not suggest significant hypovolemia. Patient did receive a bladder scan before I entered the room. The 2 results on the bladder scans read greater than 180 mL and greater than 238 mL. I explained to the patient that these were not critical values in regard to urinary retention, but we could drain her bladder for comfort. Patient has been antagonistic in her speech and demeanor which was perceived as resistance to care and collection of necessary data to treat her. I explained to the patient that if I am to consider the treatments she is dem anding, I need to have the appropriate and accurate information necessary to determine if treatments are appropriate. I left the room to explain the plan for straight cath to nursing staff. At that point, patient left the room and entered the lobby, inviting her back to the room. I stopped the in route and asked him to wait in the waiting room until we were finished with the catheterization. Patient stated if he could not be in the room they were leaving and both of them walked out of the emergency room, declining any further care. Patient promptly called the pump house technician and filed a complaint. During discussion of her health history, patient did explain that she has some type of chronic bladder condition. She does not know what the diagnosis is, only that she takes hyoscyamine chronically for it. Her last dose of hyoscyamine was last night. I did explain to her that she needs to stop hyoscyamine and discuss further with her urologist as hyoscyamine will inhibit bladder contraction and make it more difficult to urinate. Patient seemed generally irritated by questions during the necessary acquisition of health history. Patient states her primary care provider is Dr. Nile Sweet and her urology care is provided by [facility]. Of note, it appears patient exhibited similar behavior during her last ER visit, ripped out her port access, and left the ER without signing out or receiving her discharge instructions. She had yelling behavior during that encounter as well. Allergies and Home Medications Allergies Coded Allergies: levofloxacin (Verified Allergy, Unknown, 08/12/08) pt states cause red streaks up arms metoclopramide (Verified Allergy, Unknown, 10/21/05) prochlorperazine (Verified Allergy, Unknown, PATIENT HAS USED PHENERGAN IN THE PAST, 08/09/08) codeine (Verified Adverse Reaction, Mild, NAUSEA/VOMITING, 06/13/06) NSAIDS (Non-Steroidal Anti-Inflamma (Verified Adverse Reaction, Unknown, 10/21/15) DR SUGGEST SHE DOES NOT TAKE DUE TO CHRONIC PANCREATITIS. Uncoded Allergies: PATIENT MAY USE PHENERGAN SHE HAS IN THE PAST. (Allergy, Unknown, 05/19/08) Patient Home Medication List Home Medication List Reviewed: Yes Alprazolam (Alprazolam Er) 1 Mg Tab.sr.24h, 1 MG PO QID, (Reported) Entered as Reported by: MILTON BARRETT on 08/03/09 1614 Amitriptyline HCl (Amitriptyline HCl) 10 Mg Tablet, (Reported) Entered as Reported by: DEREK FISHER on 02/08/20 0426 Cyclobenzaprine HCl (Cyclobenzaprine HCl) 10 Mg Tablet, 10 MG PO TID PRN for SPASMS, (Reported) Entered as Reported by: ONEIDA TYLER on 10/21/15 1017 Dexlansoprazole (Dexilant) 60 Mg Cap.bp, (Reported) Entered as Reported by: DEREK FISHER on 02/08/20 0426 Isosorbide Mononitrate (Isosorbide Mononitrate ER) 30 Mg Tab.er.24h, 30 MG PO DAILY, (Reported) Entered as Reported by: ONEIDA TYLER on 10/21/15 1017 Mesalamine (Lialda) 1.2 Gm Tablet.dr, 1.2 GM PO DAILY, (Reported) Entered as Reported by: ONEIDA TYLER on 10/21/15 1017 Olanzapine (Olanzapine) 5 Mg Tablet, 5 MG PO DAILY, (Reported) Entered as Reported by: ONEIDA TYLER on 10/21/15 1017 Ondansetron Hcl (Ondansetron Hcl) 4 Mg Tablet, 4 MG PO TID, (Reported) Entered as Reported by: MILTON BARRETT on 07/26/09 1322 Oxycodone HCl/Acetaminophen (Percocet 5-325 mg Tablet) 1 Each Tablet, 2 EACH PO Q6H Prescribed by: WILFREDO HERNANDEZ MD on 10/21/15 1400 Ranitidine HCl (Ranitidine HCl) 150 Mg Tablet, 150 MG PO BID, (Reported) Entered as Reported by: ONEIDA TYLER on 10/21/15 1017 Trazodone Hcl (Desyrel) 300 Mg Tablet, 300 MG PO HS, (Reported) Entered as Reported by: MILTON BARRETT on 07/26/09 1325 Zolpidem Tartrate (Zolpidem Tartrate ER) 12.5 Mg Tab.mphase, 12.5 MG PO HS, (Reported) Entered as Reported by: ONEIDA TYLER on 10/21/15 1017 Review of Systems Review of Systems Constitutional: no symptoms reported EENTM: no symptoms reported Respiratory: no symptoms reported Cardiovascular: no symptoms reported Gastrointestinal: see HPI Genitourinary: see HPI : No Musculoskeletal: no symptoms reported Skin: no symptoms reported Psychiatric/Neurological: See HPI Endocrine: No Symptoms Reported Hematologic/Lymphatic: No Symptoms Reported Past Rfedlpo-Jkeflm-Wcjpzf Hx Patient Social History Tobacco Use?: No Substance use?: Yes Additional substance use comme: CBD Alcohol Use?: No Immunizations Up To Date Tetanus Booster (TDap): Unknown COVID19 Vaccine 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, Menopausal Sexually Transmitted Disease: No Genitourinary: Yes (INTERSTITIAL CYSTITIS;UROSEPSIS/SHOCK/RENAL FAILURE/DIALYSIS/PLASMAPHORESIS) Renal Failure, Dialysis, UTI-Chronic Gastrointestinal: Yes (CHRONIC NAUSEA/VOMITING, achalasia) Abdominal Hernia, Gastroesophageal Reflux, Pancreatitis, Hiatal Hernia Musculoskeletal: Yes (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 QUIT 1998 PSH: -PORT PLACEMENT LEFT CHEST -CYSTOSCOPIES -MULTIPLE EGD'S/COLONOSCOPIES/SPHINCTEROTOMIES/ERCP'S -AZ FUNDOPLICATION WITH MULTIPLE REVISIONS AND MULTIPLE SURGERIES ON ESOPHAGUS -INTESTINAL RESECTION AGE 2--MECKEL'S -APPENDECTOMY -CHOLECYSTECTOMY -HYSTERECTOMY/BILATERAL SALPINGO-OOPHORECTOMY -CELIAC PLEXUS ABLATION -THORACOSCOPIC SYMPATHETIC NERVE ABLATION -LEFT TOTAL HIP REPLACEMENT X 3 -LEFT WRIST FUSION FOR BENIGN BONE TUMOR ADDITIONAL PMH: -ACUTE TUBULAR NEPHROSIS--ON DIALYSIS IN PAST -ADRENO-CORTICAL INSUFFICIENCY / CHRONIC STEROID USE IN PAST Physical Exam Vital Signs Vital Signs - First Documented 04/08/22 05:52 Temp 36.7 Pulse 77 Resp 16 B/P (MAP) 107/76 (86) Pulse Ox 96 O2 Delivery Room Air Capillary Refill : Less Than 3 Seconds Height, Weight, BMI Height: 5'5" Weight: 155lbs. oz. 70.828248hq; 26.00 BMI Method:Stated General Appearance: WD/WN, no apparent distress, thin HEENT: PERRL/EOMI, normal ENT inspection Neck: normal inspection Cardiovascular: regular rate, rhythm, no murmur Respiratory: lungs clear, normal breath sounds, no respiratory distress Gastrointestinal: normal bowel sounds, soft; No distended; tenderness (Across the lower abdomen) Neurologic/Psychiatric: no motor/sensory deficits, alert, other (Irritated, antagonistic) Skin: normal color, warm/dry Progress/Results/Core Measures Suspected Sepsis SIRS Temperature: Pulse: 77 Respiratory Rate: 16 Blood Pressure 107 /76 Mean: 86 Results/Orders My Orders Orders - RAISA VIRAMONTES MD Ua Culture If Indicated (04/08/22 06:09) Bladder Scan (04/08/22 06:09) Vital Signs/I&O 04/08/22 05:52 Temp 36.7 Pulse 77 Resp 16 B/P (MAP) 107/76 (86) Pulse Ox 96 O2 Delivery Room Air Capillary Refill : Less Than 3 Seconds Blood Pressure Mean: 86 Departure Impression Primary Impression: Urinary retention Additional Impressions: Lower abdominal pain Left against medical advice Agitated Disposition: 07 AGAINST MEDICAL ADVICE Condition: Against Medical Advice Departure-Patient Inst. Referrals: NO,LOCAL PHYSICIAN (PCP) Primary Care Physician RAISA VIRAMONTES MD Apr 08, 2022 06:39
== END 2022-04-08 06:32 | disposition left against medical advice (07) ==
LOC: EDUNIT# 05:49 → ER 05:51
DX: R33.9 Retention of urine, unspecified (principal); R45.1 Restlessness and agitation; Z87.19 Personal history of other diseases of the digestive system; Z87.448 Personal history of other diseases of urinary system; Z90.49 Acquired absence of other specified parts of digestive tract; Z90.710 Acquired absence of both cervix and uterus; Z90.722 Acquired absence of ovaries, bilateral
CPT/HCPCS: 99283

== ENCOUNTER 2023-03-11 08:50 | Outpatient (RCR) | payer OTHER | END 2023-03-14 | disposition home or self-care (01) | PROVIDERS: ATTEND Orthopaedic Surgery | DX: Z98.890 Other specified postprocedural states (principal) ==

== ENCOUNTER → 2023-04-14 | Outpatient (RCR) | payer OTHER | END | disposition home or self-care (01) | PROVIDERS: ATTEND Orthopaedic Surgery | DX: Z98.890 Other specified postprocedural states (principal) ==

== ENCOUNTER 2023-04-25 11:06 | Outpatient (RCR) | payer OTHER | END 2023-05-15 | disposition home or self-care (01) | PROVIDERS: ATTEND Orthopaedic Surgery | DX: Z98.890 Other specified postprocedural states (principal) ==